=== PATIENT | female | born 1990 | race Caucasian/White ===

== ENCOUNTER 2017-03-01 18:52 | Emergency (ER) | payer OTHER ==
[2017-03-01] MEDS ORDERED: RX INFO: IV CONTRAST WAS GIVEN 1 EACH MISC MISCELLANE PRN (19:08)
[2017-03-01] MEDS ORDERED: SODIUM CHLORIDE 0.9% 1,000 ML IV STA (19:08)
[2017-03-01] MEDS ORDERED: KETOROLAC 30 MG/ML 1 ML VIAL IVP STA (19:08)
--- NOTE | 2017-03-01 19:11 | ED ---
General Adult HPI - General Chief complaint: Abdominal Pain Stated complaint: abdominal pain; left flank pain Time Seen by Provider: 03/01/17 19:04 Source: patient, RN notes reviewed Mode of arrival: ambulatory Limitations: no limitations - History of Present Illness Initial comments: 26-year-old female presents emergency Department chief complaint of left-sided abdominal pain. Patient states started today. Patient states originally abdomen left side. Patient states it started suddenly she continues have some pain with it. Patient states she's had 2 episodes of nausea vomiting with this. Patient states she hasn't had any fever chills that she is aware of. Patient states she hasn't had any cough cold Raynaud's. Patient states she does have history of ovarian cyst however she is not that is what this is. Patient denies any changes in urination patient denies any diarrhea. Patient states that she is not feeling much better even with some medication at home so she came in to be evaluated. Patient denies any recent fever, chills, shortness of breath, chest pain, back pain, numbness or tingling, dysuria or hematuria, constipation or diarrhea, headaches or visual changes, or any other current symptoms. - Related Data Home Medications Medication Instructions Recorded Confirmed Norgestimate-Ethinyl Estradiol 1 tab PO HS 12/19/15 03/01/17 [Sprintec 28 Day Tablet] Ibuprofen [Motrin] 400 mg PO Q6HR PRN 03/01/17 03/01/17 Vortioxetine Hydrobromide 20 mg PO HS 03/01/17 03/01/17 [Trintellix] Previous Rx's Medication Instructions Recorded Ibuprofen [Motrin] 600 mg PO Q6HR PRN #20 tab 03/01/17 Allergies Allergy/AdvReac Type Severity Reaction Status Date / Time codeine Allergy Nausea & Verified 03/01/17 19:12 Vomiting Review of Systems ROS Statement: Those systems with pertinent positive or pertinent negative responses have been documented in the HPI. ROS Other: All systems not noted in ROS Statement are negative. Past Medical History Past Medical History: No Reported History History of Any Multi-Drug Resistant Organisms: MRSA Date of last positivie culture/infection: 12/19/15 MDRO Source:: right arm Past Surgical History: Cholecystectomy Past Psychological History: Bipolar Smoking Status: Current every day smoker Past Alcohol Use History: None Reported Past Drug Use History: None Reported General Exam - General Exam Comments Initial Comments: General: The patient is awake and alert, in no distress, and does not appear acutely ill. Eye: Pupils are equal, round and reactive to light, extra-ocular movements are intact; there is normal conjunctiva bilaterally. No signs of icterus. Ears, nose, mouth and throat: There are moist mucous membranes. Neck: The neck is supple, there is no tenderness. Cardiovascular: There is a regular rate and rhythm. No murmur, rub or gallop is appreciated. Respiratory: Lungs are clear to auscultation, respirations are non-labored, breath sounds are equal. No wheezes, stridor, rales, or rhonchi. Gastrointestinal: Soft, non-distended, left-sided mildly tender abdomen without masses or organomegaly noted. There is no rebound or guarding present. No CVA tenderness. Bowel sounds are unremarkable. Back: There is no tenderness to palpation in the midline. There is no obvious deformity. No rashes noted. Musculoskeletal: Normal ROM, no tenderness, There is no pedal edema. There is no calf tenderness or swelling. Sensation intact. Pulses equal bilaterally 2+. Neurological: CN II-XII intact, There are no obvious motor or sensory deficits. Coordination appears grossly intact. Speech is normal. Skin: Skin is warm and dry and no rashes or lesions are noted. Psychiatric: Cooperative, appropriate mood & affect, normal judgment. Limitations: no limitations Course Vital Signs 03/01/17 03/01/17 03/01/17 18:55 19:33 20:55 Temperature 98.4 F 98.3 F 98.4 F Pulse Rate 106 H 65 90 Respiratory 18 16 16 Rate Blood Pressure 119/87 116/60 116/69 O2 Sat by Pulse 99 97 98 Oximetry 03/01/17 22:05 Temperature 98.3 F Pulse Rate 66 Respiratory 16 Rate Blood Pressure 109/55 O2 Sat by Pulse 98 Oximetry Medical Decision Making - Medical Decision Making 26-year-old female presents for left-sided abdominal pain. At this time patient 's lab work x-ray and CAT scan have been reviewed as well as ultrasound. This time patient does appear to have an ovarian cyst. We did discuss or hepatomegaly and this does appear to be chronic from her hepatitis C. At this time we discussed that she has had ovarian cyst. We discussed care of this. We discussed follow-up with discussed return parameters all patient's questions. They state [facility] management with this plan. They will be discharged. - Lab Data Result diagrams: 03/01/17 19:30 03/01/17 19:30 Lab Results 03/01/17 03/01/17 03/01/17 Range/Units 19:30 19:30 19:30 WBC 9.4 (3.8-10.6) k/uL RBC 4.34 (3.80-5.40) m/uL Hgb 13.9 (11.4-16.0) gm/dL Hct 37.8 (34.0-46.0) % MCV 87.0 (80.0-100.0) fL MCH 31.9 (25.0-35.0) pg MCHC 36.7 (31.0-37.0) g/dL RDW 12.2 (11.5-15.5) % Plt Count 299 (150-450) k/uL Neutrophils % 54 % Lymphocytes % 38 % Monocytes % 4 % Eosinophils % 2 % Basophils % 0 % Neutrophils # 5.1 (1.3-7.7) k/uL Lymphocytes # 3.6 (1.0-4.8) k/uL Monocytes # 0.4 (0-1.0) k/uL Eosinophils # 0.1 (0-0.7) k/uL Basophils # 0.0 (0-0.2) k/uL Sodium 141 (137-145) mmol/L Potassium 3.9 (3.5-5.1) mmol/L Chloride 106 (98-107) mmol/L Carbon Dioxide 23 (22-30) mmol/L Anion Gap 12 mmol/L BUN 8 (7-17) mg/dL Creatinine 0.61 (0.52-1.04) mg/dL Est GFR (MDRD) Af Amer >60 (>60 ml/min/1.73 sqM) Est GFR (MDRD) Non-Af >60 (>60 ml/min/1.73 sqM) Glucose 105 H (74-99) mg/dL Calcium 9.4 (8.4-10.2) mg/dL Total Bilirubin 0.3 (0.2-1.3) mg/dL AST 34 (14-36) U/L ALT 82 H (9-52) U/L Alkaline Phosphatase 78 (38-126) U/L Total Protein 7.3 (6.3-8.2) g/dL Albumin 3.9 (3.5-5.0) g/dL Amylase 70 (30-110) U/L Lipase 257 (23-300) U/L Urine Color Urine Appearance (Clear) Urine pH (5.0-8.0) Ur Specific Franklin (1.001-1.035) Urine Protein (Negative) Urine Glucose (UA) (Negative) Urine Ketones (Negative) Urine Blood (Negative) Urine Nitrite (Negative) Urine Bilirubin (Negative) Urine Urobilinogen (<2.0) mg/dL Ur Leukocyte Esterase (Negative) Urine HCG, Qual Not Detected (Not Detectd) 03/01/17 Range/Units 19:30 WBC (3.8-10.6) k/uL RBC (3.80-5.40) m/uL Hgb (11.4-16.0) gm/dL Hct (34.0-46.0) % MCV (80.0-100.0) fL MCH (25.0-35.0) pg MCHC (31.0-37.0) g/dL RDW (11.5-15.5) % Plt Count (150-450) k/uL Neutrophils % % Lymphocytes % % Monocytes % % Eosinophils % % Basophils % % Neutrophils # (1.3-7.7) k/uL Lymphocytes # (1.0-4.8) k/uL Monocytes # (0-1.0) k/uL Eosinophils # (0-0.7) k/uL Basophils # (0-0.2) k/uL Sodium (137-145) mmol/L Potassium (3.5-5.1) mmol/L Chloride (98-107) mmol/L Carbon Dioxide (22-30) mmol/L Anion Gap mmol/L BUN (7-17) mg/dL Creatinine (0.52-1.04) mg/dL Est GFR (MDRD) Af Amer (>60 ml/min/1.73 sqM) Est GFR (MDRD) Non-Af (>60 ml/min/1.73 sqM) Glucose (74-99) mg/dL Calcium (8.4-10.2) mg/dL Total Bilirubin (0.2-1.3) mg/dL AST (14-36) U/L ALT (9-52) U/L Alkaline Phosphatase (38-126) U/L Total Protein (6.3-8.2) g/dL Albumin (3.5-5.0) g/dL Amylase (30-110) U/L Lipase (23-300) U/L Urine Color Yellow Urine Appearance Clear (Clear) Urine pH 6.0 (5.0-8.0) Ur Specific Franklin 1.018 (1.001-1.035) Urine Protein Negative (Negative) Urine Glucose (UA) Negative (Negative) Urine Ketones Negative (Negative) Urine Blood Negative (Negative) Urine Nitrite Negative (Negative) Urine Bilirubin Negative (Negative) Urine Urobilinogen <2.0 (<2.0) mg/dL Ur Leukocyte Esterase Negative (Negative) Urine HCG, Qual (Not Detectd) - Radiology Data Radiology results: report reviewed, image reviewed Disposition Clinical Impression: Right ovarian cyst Disposition: HOME SELF-CARE Condition: Stable Instructions: Ovarian Cyst (ED) Additional Instructions: Please use medication as discussed. Please follow up with family doctor if symptoms have not improved over the next two days. Please return to the emergency room if your symptoms increase or worsen or for any other concerns. Prescriptions: Ibuprofen [Motrin] 600 mg PO Q6HR PRN #20 tab PRN Reason: Pain Referrals: Becky Gonzalez MD [STAFF PHYSICIAN] - 1-2 days Time of Disposition: 22:37
[2017-03-01 19:46] LABS: Basophils % (A) 0 %; CH 30.8; CHCM 35.6; Eosinophils # (A) 0.1 k/uL (0-0.7); Eosinophils % (A) 2 %; HCT 37.8 % (34.0-46.0); HDW 2.76; HGB 13.9 gm/dL (11.4-16.0); Luc # (Auto) 0.18; Luc % (Auto) 2; Lymphocytes # (A) 3.6 k/uL (1.0-4.8); Lymphocytes % (A) 38 %; MCH 31.9 pg (25.0-35.0); MCHC 36.7 g/dL (31.0-37.0); Mean Platelet Volume 6.6; Monocytes # (A) 0.4 k/uL (0-1.0); Monocytes % (A) 4 %; Neutrophils # (A) 5.1 k/uL (1.3-7.7); Neutrophils % (A) 54 %; RBC 4.34 m/uL (3.80-5.40); RDW 12.2 % (11.5-15.5); WBC 9.4 k/uL (3.8-10.6); WBC (Perox) 9.39
[2017-03-01 19:47] LABS: Appearance,Urine Clear (Clear); Bilirubin,Urine Negative (Negative); Glucose,Urine (UA) Negative (Negative); Ketones,Urine Negative (Negative); Leukocyte Esterase,Urine Negative (Negative); Nitrite,Urine Negative (Negative); Protein,Urine Negative (Negative); Specific Gravity,Urine 1.018 (1.001-1.035); UA Billing (MACRO vs. MICRO) CHEM; Urobilinogen,Urine <2.0 mg/dL (<2.0)
[2017-03-01 20:21] LABS: ALT 82 U/L (9-52); AST 34 U/L (14-36); Alkaline Phosphatase 78 U/L (38-126); Amylase 70 U/L (30-110); Anion Gap 12 mmol/L; Blood Urea Nitrogen 8 mg/dL (7-17); Calcium 9.4 mg/dL (8.4-10.2); Carbon Dioxide 23 mmol/L (22-30); Chloride 106 mmol/L (98-107); Glucose 105 mg/dL (74-99); Non-African American GFR(MDRD) >60 (>60 ml/min/1.73 sqM); Potassium 3.9 mmol/L (3.5-5.1); Sodium 141 mmol/L (137-145); Total Bilirubin 0.3 mg/dL (0.2-1.3); Total Protein 7.3 g/dL (6.3-8.2)
--- NOTE | 2017-03-01 20:44 | CT ---
EXAMINATION TYPE: CT abdomen pelvis w con DATE OF EXAM: 03/01/2017 COMPARISON: 10/26/2009 HISTORY: 26-year-old female with left lower quadrant pain with nausea and vomiting today. TECHNIQUE: Contiguous axial scanning of the abdomen and pelvis following administration of 100 ml Omn ipaque 300 IV contrast. Delayed images through the kidneys and coronal/sagittal reconstructions perf ormed. CT DLP: 1227.20 mGycm Automated exposure control for dose reduction was used. FINDINGS: Heart is normal size without pericardial effusion. Lung bases clear without pleural effusion. Liver is enlarged measuring 21.9 cm craniocaudal with diffuse diminished attenuation. Portal venous s ystem is patent. No biliary ductal dilatation. Cholecystectomy clips. Adrenal glands, kidneys, spleen, and pancreas show no gross abnormality. Scattered numerous nonenlarged mesenteric lymph nodes. A couple mildly enlarged mesenteric lymph node s are present measuring up to 7 mm, coronal image 39. No dilated small bowel, free fluid, or free air. Normal appendix. Mild overall stool burden. No pericolonic inflammatory change. Bladder is partially distended. Uterus and ovaries are visualized. Small amount of cul-de-sac free fl uid likely physiologic. No pelvic lymphadenopathy seen. Bones: Mild superior femoral head neck junction osseous excrescences with a femoral head neck junctio n microcystic change. Osseous destructive process. IMPRESSION: 1. HEPATOMEGALY (22 CM) WITH MARKED HEPATIC STEATOSIS. CORRELATE WITH LFT's, LIPID PROFILE, AND PATIE NT RISK FACTORS. 2. SCATTERED NONENLARGED AND A FEW MILDLY ENLARGED MESENTERIC LYMPH NODES. FINDINGS ARE PROBABLY POST INFLAMMATORY. 3. MILD PELVIC FREE FLUID LIKELY PHYSIOLOGIC. 4. SOME BONY CHANGES AT THE HIPS DESCRIBED ABOVE MAY BE SEEN IN SETTING OF FEMORAL ACETABULAR IMPINGE MENT SYNDROME. CORRELATE FOR ANY CHRONIC HIP PAIN. OUTPATIENT ORTHOPEDIC REFERRAL CLINICALLY INDIC ATED.
--- NOTE | 2017-03-01 22:26 | US ---
EXAMINATION TYPE: US transvaginal plus Dopplers DATE OF EXAM: 03/01/2017 COMPARISON: CT same day CLINICAL HISTORY: 26-year-old female with Pain. LLQ pain- comes periodically TECHNIQUE: Transvaginal (TV). Color Doppler and spectral waveform analysis of the ovarian arteries a nd veins. Date of LMP: 02/15/2017, FINDINGS: Uterus: Anteverted measuring 8.3 x 5.2 x 4.3 cm Endometrial Stripe: 0.3 cm Right Ovary: 3.0 x 1.5 x 1.6 cm for a volume of 3.4 mL. There is a 1.2 cm small crenulated cystic st ructure within it could represent a recently ruptured follicle. Satisfactory arterial and venous flow . Left Ovary: 2.9 x 1.9 x 1.6 cm for a volume of 4.7 mL. Follicular changes present. Satisfactory mike rial and venous flow is present. Mild to moderate cul-de-sac and trace left adnexal free fluid. IMPRESSION: 1. Follicular change in both ovaries. There is a 1.2 cm crenulated cyst in the right ovary probably r epresenting a recently ruptured follicle or corpus luteum. 2. No sonographic evidence for ovarian torsion. 3. Mild to moderate cul-de-sac and trace left adnexal free fluid likely physiologic.
[2017-03-01] MEDS ORDERED: HYDROcodone/APAP 5-325MG 1 EACH TAB PO STA (22:36)
[2017-03-01 22:47] VITALS: BP 106/62; PULSE 68; RESP 14; TEMP 98.2
== END 2017-03-01 22:52 | disposition home or self-care (01) ==
LOC: EC 18:52
DX: N83.201 Unspecified ovarian cyst, right side (principal); R11.2 Nausea with vomiting, unspecified; F31.9 Bipolar disorder, unspecified; F17.200 Nicotine dependence, unspecified, uncomplicated; Z90.49 Acquired absence of other specified parts of digestive tract; Z88.5 Allergy status to narcotic agent; Z79.3 Long term (current) use of hormonal contraceptives; Z79.899 Other long term (current) drug therapy
CPT/HCPCS: 99284; 96374; 96361; 36415; 80053; 82150; 83690; 85025; 81003; 81025; 87040; 87086; 93975; 76830; 74177; J1885; Q9967

== ENCOUNTER → 2017-08-28 | Outpatient (CLI) | payer OTHER ==
--- NOTE | 2017-08-28 20:34 | MR ---
EXAMINATION TYPE: MR brain wo/w con DATE OF EXAM: 08/28/2017 COMPARISON: NONE HISTORY: Paresthesia of skin / Visual disturbance per order. Left-sided numbness, possible mini strok es per patient TECHNIQUE: Multiplanar, multisequence images of the brain and brainstem is performed without and with IV contras t, utilizing 9 mL intravenous Gadavist . FINDINGS: Diffusion weighted images demonstrate no evidence of a recent infarct or other diffusion ab normality. There is no extra-axial fluid collection or significant white matter signal abnormality. The ventricular system and cisternal spaces are normal in size and appearance. The brain volume is age appropriate. Midline structures demonstrate normal morphology. The craniocervical junction appears within normal limits. Post contrast images demonstrate no abnormal enhancement. The dural venous sinuses appear pa tent. The visualized sinuses are clear and the globes are intact. IMPRESSION: No evidence of a recent infarct. No significant finding is seen to account for patient's symptoms.
== END | disposition home or self-care (01) ==
LOC: RADMRIMAIN 19:36
PROVIDERS: ATTEND Family Medicine
DX: R20.0 Anesthesia of skin (principal)
CPT/HCPCS: 70553; A9581

== ENCOUNTER → 2018-02-25 | Outpatient (CLI) | payer OTHER ==
--- NOTE | 2018-02-25 12:34 | FL ---
EXAMINATION: Cervical and Thoracic Esophagram DATE OF EXAM: 02/25/2018 CLINICAL INDICATION: 27-year-old female with dysphasia, complaining of food and drink sticking in the lower esophagus for 1 month. Complains of acid reflux. COMPARISON: None Total Fluoroscopy Time: 50 seconds. Total images: 19. FINDINGS: The swallowing mechanism is normal and hypopharyngeal anatomy is preserved. The cervical and thoracic portions have a normal course and caliber and normal motility. The mucosa is normal and no persistent filling defect is encountered. No hiatal hernia is present. There is a single episode of very minimal gastroesophageal reflux when the patient is supine and turns to the left. IMPRESSION: 1. A single episode of very minimal gastroesophageal reflux when the patient is supine and turns to t he left. 2. No hiatal hernia or other specific abnormality seen.
== END | disposition home or self-care (01) ==
LOC: RADFLWHC 08:36
PROVIDERS: ATTEND Family Medicine
DX: K21.9 Gastro-esophageal reflux disease without esophagitis (principal)
CPT/HCPCS: 74220

== ENCOUNTER 2018-03-20 22:25 | Emergency (ER) | payer BC, OTHER ==
[2018-03-20 22:40] VITALS: BP 116/78; PULSE 86; RESP 18; TEMP 98.5
--- NOTE | 2018-03-20 23:03 | ED ---
General Adult HPI - General Chief complaint: Fall Stated complaint: Fell downstairs 5-7 feet/ knee injury Time Seen by Provider: 03/20/18 22:55 Source: patient, RN notes reviewed, old records reviewed Mode of arrival: wheelchair Limitations: no limitations - History of Present Illness Initial comments: Patient is a 27 year old female with L knee pain and swelling after she tripped and twisted her leg while falling down 5 stairs. Patient denies head injury or LOC. She denies any other injury associated with the fall. She reports that he has pain in the posterior aspect of her knee. She reports that she has placed ice and het on her knee with no relief Location: lower extremity (L knee) Radiation: non-radiation Quality: aching, dull Consistency: constant Improves with: none Associated Symptoms: denies other symptoms Treatments Prior to Arrival: cold therapy - Related Data Home Medications Medication Instructions Recorded Confirmed Norgestimate-Ethinyl Estradiol 1 tab PO HS 12/19/15 03/01/17 [Sprintec 28 Day Tablet] Ibuprofen [Motrin] 400 mg PO Q6HR PRN 03/01/17 03/01/17 Vortioxetine Hydrobromide 20 mg PO HS 03/01/17 03/01/17 [Trintellix] Previous Rx's Medication Instructions Recorded Ibuprofen [Motrin] 600 mg PO Q6HR PRN #20 tab 03/01/17 Ibuprofen [Motrin] 800 mg PO TID #20 tab 03/20/18 Allergies Allergy/AdvReac Type Severity Reaction Status Date / Time codeine Allergy Nausea & Verified 03/20/18 22:39 Vomiting Review of Systems ROS Statement: Those systems with pertinent positive or pertinent negative responses have been documented in the HPI. ROS Other: All systems not noted in ROS Statement are negative. Past Medical History Past Medical History: No Reported History History of Any Multi-Drug Resistant Organisms: MRSA Date of last positivie culture/infection: 12/19/15 MDRO Source:: right arm Past Surgical History: Cholecystectomy Past Psychological History: Bipolar Smoking Status: Current every day smoker Past Alcohol Use History: None Reported Past Drug Use History: None Reported General Exam - General Exam Comments Initial Comments: This is a well appearing 27 year old male, no distress. Limitations: no limitations General appearance: alert, in no apparent distress Head exam: Present: atraumatic, normocephalic, normal inspection Eye exam: Present: normal appearance, PERRL, EOMI. Absent: scleral icterus, conjunctival injection, periorbital swelling ENT exam: Present: normal exam Neck exam: Present: normal inspection. Absent: tenderness, meningismus, lymphadenopathy Respiratory exam: Present: normal lung sounds bilaterally. Absent: respiratory distress, wheezes, rales, rhonchi, stridor Cardiovascular Exam: Present: regular rate, normal rhythm, normal heart sounds. Absent: systolic murmur, diastolic murmur, rubs, gallop, clicks Left Knee exam: Present: normal inspection, tenderness (over LCL and posterior knee. ), swelling, pain/laxity with varus. Absent: full ROM, abrasion, laceration, full knee extension Lower Leg exam: Present: normal inspection, full ROM Ankle exam: Present: normal inspection, full ROM Neurovascular tendon exam: Present: no vascular compromise Gait: observed and limited by pain Back exam: Present: normal inspection Neurological exam: Present: alert, oriented X3, CN II-XII intact Course Vital Signs 03/20/18 22:37 Temperature 98.5 F Pulse Rate 86 Respiratory 18 Rate Blood Pressure 116/78 O2 Sat by Pulse 99 Oximetry Procedures - Orthopedic Splinting/Casting Injury #1 Side: left Lower Extremity Injury Location: knee Lower Extremity Immobilizer: knee immobilizer Other Orthopedic Equipment: crutches Medical Decision Making - Medical Decision Making This is a 27 year old female with L knee pain after she twisted her knee and fell down the stairs. She has normal pulses distally, and normal sensation. Effusion noted, and tender over LCL. Patient knee xray is negative for fracture. Patient likely has torn LCL and other internal derangement of ligaments and meniscus. Patient given referral to ortho, placed in knee immobilizer. Return parameters discussed. - Radiology Data Radiology results: report reviewed Knormal L knee xray, no fracture. Disposition Clinical Impression: Left knee sprain Disposition: HOME SELF-CARE Condition: Good Instructions: Knee Sprain (ED) Additional Instructions: Patient is to follow up with primary care provider and Follow-up with asset recovery specialist. Wear the brace. Return to the emergency department if any alarming signs or symptoms occur. Prescriptions: Ibuprofen [Motrin] 800 mg PO TID #20 tab Is patient prescribed a controlled substance at d/c from ED?: No Referrals: Yash Mullen MD [Primary Care Provider] - 1-2 days Júnior Moe MD [STAFF PHYSICIAN] - 1-2 days Time of Disposition: 23:34
--- NOTE | 2018-03-20 23:20 | XR ---
EXAMINATION TYPE: XR knee complete LT DATE OF EXAM: 03/20/2018 COMPARISON: NONE HISTORY: Knee pain TECHNIQUE: 3 views FINDINGS: I see no fracture nor dislocation. Joint spaces are normal. There is no sign of joint effus ion. IMPRESSION: Negative left knee exam
== END 2018-03-20 23:49 | disposition home or self-care (01) ==
LOC: EC 22:25
DX: S83.92XA Sprain of unspecified site of left knee, initial encounter (principal); F31.9 Bipolar disorder, unspecified; F17.200 Nicotine dependence, unspecified, uncomplicated; Z88.5 Allergy status to narcotic agent; Z79.3 Long term (current) use of hormonal contraceptives; Z86.14 Personal history of Methicillin resistant Staphylococcus aureus infection; W10.9XXA Fall (on) (from) unspecified stairs and steps, initial encounter; Y93.89 Activity, other specified; Y92.009 Unspecified place in unspecified non-institutional (private) residence as the place of occurrence of the external cause
CPT/HCPCS: 73562; 99284; L1830

== ENCOUNTER 2018-04-30 08:33 | Emergency (ER) | payer BC ==
[2018-04-30 08:41] VITALS: PULSE 68; RESP 18; TEMP 98.6
[2018-04-30] MEDS ORDERED: SODIUM CHLORIDE 0.9% 1,000 ML IV STA (08:51)
[2018-04-30] MEDS ORDERED: KETOROLAC 30 MG/ML 1 ML VIAL IVP STA (08:51)
--- NOTE | 2018-04-30 08:58 | ED ---
General Adult HPI - General Chief complaint: Abdominal Pain Stated complaint: Abd pain Time Seen by Provider: 04/30/18 08:37 Source: patient, EMS, RN notes reviewed, old records reviewed Mode of arrival: EMS Limitations: no limitations - History of Present Illness Initial comments: 27-year-old female presents with three-day history of abdominal pain. Patient states the pain is predominantly in her right lower quadrant. Patient denies fever or chills. Denies dysuria. Denies vaginal discharge or bleeding. Patient denies significant upper abdominal pain. She has had 10 episodes of vomiting in the last 24 hours. This was nonbloody nonbilious. Patient is otherwise healthy with no chronic medical problems. - Related Data Home Medications Medication Instructions Recorded Confirmed Norgestimate-Ethinyl Estradiol 1 tab PO HS 12/19/15 04/30/18 [Sprintec 28 Day Tablet] Sertraline [Zoloft] 75 mg PO HS 04/30/18 04/30/18 Allergies Allergy/AdvReac Type Severity Reaction Status Date / Time codeine AdvReac Nausea & Verified 04/30/18 09:05 Vomiting Review of Systems ROS Statement: Those systems with pertinent positive or pertinent negative responses have been documented in the HPI. ROS Other: All systems not noted in ROS Statement are negative. Past Medical History Past Medical History: No Reported History History of Any Multi-Drug Resistant Organisms: MRSA Date of last positivie culture/infection: 12/19/15 MDRO Source:: right arm Past Surgical History: Cholecystectomy Past Psychological History: Bipolar, Depression Smoking Status: Current every day smoker Past Alcohol Use History: None Reported Past Drug Use History: None Reported General Exam Limitations: no limitations General appearance: alert, in no apparent distress Head exam: Present: atraumatic, normocephalic Eye exam: Present: normal appearance, PERRL ENT exam: Present: mucous membranes dry Neck exam: Present: normal inspection. Absent: tenderness, meningismus Respiratory exam: Present: normal lung sounds bilaterally. Absent: respiratory distress, wheezes Cardiovascular Exam: Present: regular rate, normal rhythm GI/Abdominal exam: Present: soft, tenderness (Right lower quadrant tenderness to palpation). Absent: distended Extremities exam: Present: normal inspection, normal capillary refill. Absent: pedal edema Neurological exam: Present: alert, oriented X3, CN II-XII intact. Absent: motor sensory deficit Psychiatric exam: Present: normal affect, normal mood Skin exam: Present: warm, dry, intact. Absent: cyanosis, diaphoretic Course Vital Signs 04/30/18 08:37 Temperature 98.6 F Pulse Rate 68 Respiratory 18 Rate Blood Pressure 125/72 O2 Sat by Pulse 100 Oximetry Medical Decision Making - Medical Decision Making 27-year-old female with nausea vomiting and right lower quadrant pain. On exam there is tenderness in the right lower quadrant. Given her duration of symptoms there is concern for appendicitis, CT is obtained which is negative for appendicitis, does show cystic change in the ovaries. Symptoms likely related to ruptured ovarian cyst. Patient has normal CBC and CMP, urinalysis is negative. After 1 dose of Toradol she is feeling better. She will be discharged home with outpatient follow-up. Return with worsening or changing symptoms. - Lab Data Result diagrams: 04/30/18 08:45 04/30/18 08:45 Lab Results 04/30/18 04/30/18 04/30/18 Range/Units 08:45 08:45 08:45 WBC 11.1 H (3.8-10.6) k/uL RBC 4.63 (3.80-5.40) m/uL Hgb 13.7 (11.4-16.0) gm/dL Hct 39.5 (34.0-46.0) % MCV 85.2 (80.0-100.0) fL MCH 29.7 (25.0-35.0) pg MCHC 34.8 (31.0-37.0) g/dL RDW 12.4 (11.5-15.5) % Plt Count 237 (150-450) k/uL Neutrophils % 77 % Lymphocytes % 16 % Monocytes % 4 % Eosinophils % 2 % Basophils % 0 % Neutrophils # 8.6 H (1.3-7.7) k/uL Lymphocytes # 1.7 (1.0-4.8) k/uL Monocytes # 0.4 (0-1.0) k/uL Eosinophils # 0.2 (0-0.7) k/uL Basophils # 0.1 (0-0.2) k/uL PT (9.0-12.0) sec INR (<1.2) APTT (22.0-30.0) sec Sodium 138 (137-145) mmol/L Potassium 4.5 (3.5-5.1) mmol/L Chloride 111 H (98-107) mmol/L Carbon Dioxide 20 L (22-30) mmol/L Anion Gap 7 mmol/L BUN 5 L (7-17) mg/dL Creatinine 0.46 L (0.52-1.04) mg/dL Est GFR (CKD-EPI)AfAm >90 (>60 ml/min/1.73 sqM) Est GFR (CKD-EPI)NonAf >90 (>60 ml/min/1.73 sqM) Glucose 106 H (74-99) mg/dL Plasma Lactic Acid Rodolfo 1.5 (0.7-2.0) mmol/L Calcium 8.9 (8.4-10.2) mg/dL Total Bilirubin 0.7 (0.2-1.3) mg/dL AST 41 H (14-36) U/L ALT 37 (9-52) U/L Alkaline Phosphatase 73 (38-126) U/L Total Protein 7.2 (6.3-8.2) g/dL Albumin 3.7 (3.5-5.0) g/dL Amylase 59 (30-110) U/L Lipase 125 (23-300) U/L Urine Color Urine Appearance (Clear) Urine pH (5.0-8.0) Ur Specific [place] (1.001-1.035) Urine Protein (Negative) Urine Glucose (UA) (Negative) Urine Ketones (Negative) Urine Blood (Negative) Urine Nitrite (Negative) Urine Bilirubin (Negative) Urine Urobilinogen (<2.0) mg/dL Ur Leukocyte Esterase (Negative) Urine RBC (0-5) /hpf Urine WBC (0-5) /hpf Ur Squamous Epith Cells (0-4) /hpf Urine Mucus (None) /hpf Urine HCG, Qual (Not Detectd) 04/30/18 04/30/18 04/30/18 Range/Units 08:45 09:25 09:25 WBC (3.8-10.6) k/uL RBC (3.80-5.40) m/uL Hgb (11.4-16.0) gm/dL Hct (34.0-46.0) % MCV (80.0-100.0) fL MCH (25.0-35.0) pg MCHC (31.0-37.0) g/dL RDW (11.5-15.5) % Plt Count (150-450) k/uL Neutrophils % % Lymphocytes % % Monocytes % % Eosinophils % % Basophils % % Neutrophils # (1.3-7.7) k/uL Lymphocytes # (1.0-4.8) k/uL Monocytes # (0-1.0) k/uL Eosinophils # (0-0.7) k/uL Basophils # (0-0.2) k/uL PT 9.3 (9.0-12.0) sec INR 0.9 (<1.2) APTT 22.1 (22.0-30.0) sec Sodium (137-145) mmol/L Potassium (3.5-5.1) mmol/L Chloride (98-107) mmol/L Carbon Dioxide (22-30) mmol/L Anion Gap mmol/L BUN (7-17) mg/dL Creatinine (0.52-1.04) mg/dL Est GFR (CKD-EPI)AfAm (>60 ml/min/1.73 sqM) Est GFR (CKD-EPI)NonAf (>60 ml/min/1.73 sqM) Glucose (74-99) mg/dL Plasma Lactic Acid Rod[place]fo (0.7-2.0) mmol/L Calcium (8.4-10.2) mg/dL Total Bilirubin (0.2-1.3) mg/dL AST (14-36) U/L ALT (9-52) U/L Alkaline Phosphatase (38-126) U/L Total Protein (6.3-8.2) g/dL Albumin (3.5-5.0) g/dL Amylase (30-110) U/L Lipase (23-300) U/L Urine Color Yellow Urine Appearance Cloudy H (Clear) Urine pH 7.5 (5.0-8.0) Ur Specific [place] 1.011 (1.001-1.035) Urine Protein Negative (Negative) Urine Glucose (UA) Negative (Negative) Urine Ketones Negative (Negative) Urine Blood Negative (Negative) Urine Nitrite Negative (Negative) Urine Bilirubin Negative (Negative) Urine Urobilinogen 3.0 (<2.0) mg/dL Ur Leukocyte Esterase Negative (Negative) Urine RBC 1 (0-5) /hpf Urine WBC 2 (0-5) /hpf Ur Squamous Epith Cells 13 H (0-4) /hpf Urine Mucus Rare H (None) /hpf Urine HCG, Qual Not Detected (Not Detectd) Disposition Clinical Impression: Abdominal pain, Ruptured ovarian cyst Disposition: HOME SELF-CARE Condition: Good Instructions: Abdominal Pain (ED) Is patient prescribed a controlled substance at d/c from ED?: No Referrals: Yash Mullen MD [Primary Care Provider] - 1-2 days Time of Disposition: 11:16
[2018-04-30 09:22] LABS: Basophils # (A) 0.1 k/uL (0-0.2); Basophils % (A) 0 %; Eosinophils # (A) 0.2 k/uL (0-0.7); Eosinophils % (A) 2 %; HCT 39.5 % (34.0-46.0); HGB 13.7 gm/dL (11.4-16.0); Lymphocytes # (A) 1.7 k/uL (1.0-4.8); Lymphocytes % (A) 16 %; MCH 29.7 pg (25.0-35.0); MCHC 34.8 g/dL (31.0-37.0); MCV 85.2 fL (80.0-100.0); Mean Platelet Volume 6.9; Monocytes # (A) 0.4 k/uL (0-1.0); Monocytes % (A) 4 %; Neutrophils # (A) 8.6 k/uL (1.3-7.7); Neutrophils % (A) 77 %; Platelet Count 237 k/uL (150-450); RBC 4.63 m/uL (3.80-5.40); RDW 12.4 % (11.5-15.5); WBC 11.1 k/uL (3.8-10.6)
[2018-04-30 09:32] LABS: Amylase 59 U/L (30-110); Anion Gap 7 mmol/L; Blood Urea Nitrogen 5 mg/dL (7-17); Calcium 8.9 mg/dL (8.4-10.2); Carbon Dioxide 20 mmol/L (22-30); Chloride 111 mmol/L (98-107); Glucose 106 mg/dL (74-99); INR 0.9 (<1.2); Lipase 125 U/L (23-300); Partial Thromboplastin Time 22.1 sec (22.0-30.0); Prothrombin Time 9.3 sec (9.0-12.0); Sodium 138 mmol/L (137-145); Total Bilirubin 0.7 mg/dL (0.2-1.3)
[2018-04-30 09:35] LABS: ALT 37 U/L (9-52); AST 41 U/L (14-36); Albumin 3.7 g/dL (3.5-5.0); Alkaline Phosphatase 73 U/L (38-126); Potassium 4.5 mmol/L (3.5-5.1); Total Protein 7.2 g/dL (6.3-8.2)
[2018-04-30 09:39] LABS: Appearance,Urine Cloudy (Clear); Bilirubin,Urine Negative (Negative); Blood,Urine Negative (Negative); Color,Urine Yellow; Glucose,Urine (UA) Negative (Negative); Ketones,Urine Negative (Negative); Leukocyte Esterase,Urine Negative (Negative); Mucus,Urine Rare /hpf; Nitrite,Urine Negative (Negative); PH, Urine 7.5 (5.0-8.0); Protein,Urine Negative (Negative); RBC,Urine 1 /hpf (0-5); Specific Gravity,Urine 1.011 (1.001-1.035); Squamous Epithelial Cell,Urine 13 /hpf (0-4); WBC,Urine 2 /hpf (0-5)
--- NOTE | 2018-04-30 10:43 | CT ---
EXAMINATION TYPE: CT abdomen pelvis w con DATE OF EXAM: 04/30/2018 HISTORY: RLQ pain CT DLP: 970.7mGycm Automated Exposure Control for Dose Reduction was Utilized. CONTRAST: CT scan of the abdomen and pelvis is performed with IV Contrast, patient injected with 100 mL of Isov ue 300. COMPARISON: None. FINDINGS: LUNG BASES: Minimal subsegmental dependent atelectasis is seen bilaterally. LIVER/GB: Hepatic parenchyma is diffusely hypoattenuated in comparison to that of the spleen, most co mmonly seen in hepatic steatosis. This finding limits evaluation for hepatic masses. No gross evidenc e of hepatic mass is seen. No intrahepatic biliary ductal dilatation. Gallbladder surgically absent. PANCREAS: No significant abnormality is seen. SPLEEN: No significant abnormality is seen. No splenomegaly. ADRENALS: No significant abnormality is seen. KIDNEYS: No significant abnormality is seen. BOWEL: No appendix is air-filled and within normal limits of size, retrocecal in location. No large or small bowel dilatation to suggest obstruction. Terminal ileum is decompressed but overall unremark able with no surrounding inflammatory change. UTERUS/ADNEXA: Follicular and/or cystic changes are noted of the ovaries. Uterus is grossly unremarka ble LYMPH NODES: No greater than 1cm abdominal or pelvic lymph nodes are appreciated. OSSEOUS STRUCTURES: Asymmetric, right greater than left, sacroiliac joint sclerosis is seen. Osseous protuberance at the femoral head neck junctions are again seen. OTHER: Approximately 2 mm fat filled periumbilical hernia seen. IMPRESSION: 1. No CT findings of acute appendicitis or bowel obstruction. 2. Follicular and/or cystic changes of the ovaries. 3. Hepatic steatosis as seen on the prior.
[2018-04-30 11:18] VITALS: BP 112/62
== END 2018-04-30 11:41 | disposition home or self-care (01) ==
LOC: EC 08:33
DX: N83.209 Unspecified ovarian cyst, unspecified side (principal); R10.31 Right lower quadrant pain; R11.2 Nausea with vomiting, unspecified; F31.9 Bipolar disorder, unspecified; F17.200 Nicotine dependence, unspecified, uncomplicated; Z88.5 Allergy status to narcotic agent; Z79.3 Long term (current) use of hormonal contraceptives; Z79.899 Other long term (current) drug therapy; Z86.14 Personal history of Methicillin resistant Staphylococcus aureus infection; Z90.49 Acquired absence of other specified parts of digestive tract
CPT/HCPCS: 36415; 80053; 82150; 83605; 83690; 85025; 85610; 85730; 81001; 81025; 74177; 99285; 96374; 96361 ×2; J1885; Q9967

== ENCOUNTER → 2018-05-26 | Outpatient (CLI) | payer BC ==
[2018-05-27 04:58] LABS: Anion Gap 6.3 mmol/L (4.00-12.00); Calcium 8.9 mg/dL (8.7-10.3); Carbon Dioxide 25.7 mmol/L (21.6-31.8); Potassium 4.3 mmol/L (3.5-5.5)
[2018-05-28 14:36] LABS: Hepatits C Virus RNA DETECTED (Not detected); Hepatits C Virus RNA, Quant 392 IU/mL (<12); LOG HCV IU/mL 2.59 (<1.08)
== END ==
LOC: LABWHC1 17:12
PROVIDERS: ATTEND Internal Medicine Infectious Disease
DX: B17.10 Acute hepatitis C without hepatic coma (principal)
CPT/HCPCS: 36415; 80048; 87522

== ENCOUNTER → 2018-07-28 | Outpatient (CLI) | payer BC ==
[2018-07-28 11:16] LABS: Basophils % (A) 1 %; Eosinophils # (A) 0.1 k/uL (0-0.7); Eosinophils % (A) 2 %; HCT 41.5 % (34.0-46.0); HGB 14.7 gm/dL (11.4-16.0); Lymphocytes # (A) 2.4 k/uL (1.0-4.8); Lymphocytes % (A) 30 %; MCH 31.7 pg (25.0-35.0); MCHC 35.3 g/dL (31.0-37.0); MCV 89.8 fL (80.0-100.0); Mean Platelet Volume 6.8; Monocytes # (A) 0.8 k/uL (0-1.0); Monocytes % (A) 10 %; Neutrophils # (A) 4.5 k/uL (1.3-7.7); Neutrophils % (A) 56 %; Platelet Count 256 k/uL (150-450); RBC 4.62 m/uL (3.80-5.40); RDW 12.9 % (11.5-15.5); WBC 7.9 k/uL (3.8-10.6)
== END | disposition home or self-care (01) ==
LOC: LABWHC1 09:32
PROVIDERS: ATTEND Obstetrics & Gynecology
DX: Z01.812 Encounter for preprocedural laboratory examination (principal)
CPT/HCPCS: 36415; 85025

== ENCOUNTER 2018-08-04 06:22 | Day surgery (SDC) | payer BC ==
[2018-07-31 14:00] VITALS: BMI 32.9
--- NOTE | 2018-08-03 16:34 | P.HPOB ---
History of Present Illness H&P Date: 08/03/18 Chief Complaint: Pelvic pain Yoli is a 27-year-old female who has a 12 year history of pelvic pain. Patient notes the pain is worse about a week before her period starts and improved slightly after her menses is done she's been told previously that she has ovarian cyst that her cousin pain but CAT scan done in April 2018 did not show this. Pain has been progressively worse over the last 2 years so much that she struggles to function when it is at its worst. She denies any GI symptoms nor does she have any urinary symptoms that would suggest IC. Most likely her diagnosis is control. She is already on Depo-Provera and this does not seem to be improving her pain. She is therefore scheduled for diagnostic laparoscopy with possible removal of or ablation of endometrial implants. We did discuss possibly refer her to pelvic pain specialist were doing a robotically however, she would like to have a diagnosis that she can have a more long-term treatment as needed depending on what we find. Risks/ benefits/alternatives to this procedure were discussed with the patient in detail and all questions were answered for her prior to proceeding to the operative room. Risks did include but were not limited to bleeding, infection, damage to bladder, damage to bowel, tubal injuries, ovarian injuries, and ureteral injuries. All questions were answered for her prior to proceeding to the operative room. Past Medical History Past Medical History: Liver Disease Additional Past Medical History / Comment(s): HEP C, HAVING ABDOMINAL AND PELVIC PAIN History of Any Multi-Drug Resistant Organisms: MRSA Date of last positivie culture/infection: 12/19/15 MDRO Source:: right arm Past Surgical History: Cholecystectomy Past Anesthesia/Blood Transfusion Reactions: No Reported Reaction Smoking Status: Current every day smoker Medications and Allergies Home Medications Medication Instructions Recorded Confirmed Type Sertraline [Zoloft] 75 mg PO HS 04/30/18 07/31/18 History Medroxyprogesterone Acetate 104 mg SQ Q90D 07/31/18 07/31/18 History [Depo-Subq Provera 104] Allergies Allergy/AdvReac Type Severity Reaction Status Date / Time codeine AdvReac Nausea & Verified 07/31/18 13:54 Vomiting Exam Osteopathic Statement: *. No significant issues noted on an osteopathic structural exam other than those noted in the History and Physical/Consult. - OBG Physical Exam Breast: both: normal (no masses) Abdomen: bowel sounds normal, no diffuse tenderness, no bruit present, no guarding noted, no hepatomegaly, no splenomegaly, no mass Vulva: both: normal Vagina: normal moisture, no discharge Cervix: no lesion, no discharge Uterus: normal size, normal contour Adnexa: both: normal Anus/Rectum: normal perianal skin, no rectal mass, no hemorrhoids, heme negative
[~2018-08-04 06:22] MED LIST: DEXAMETHASONE SOD PHOSPHATE 10 MG/ML 1 ML VIAL IV ONE; LACTATED RINGERS 1,000 ML IV SCH; LIDOCAINE 1% 20 ML VIAL (10MG/ML) FOR IV START INTRADERMA PRN; MIDAZOLAM (PF) 2 MG/2 ML VIAL IV PRN; ONDANSETRON 4 MG/2 ML VIAL IVP ONE; Pre Op ABX Message 1 EACH MISC MISCELLANE ONE; SCOPOLAMINE 1.5MG/72HR PATCH TRANSDERM ONE
[2018-08-04] MEDS ORDERED: LACTATED RINGERS 1,000 ML IV ONE ×3 (06:50→09:13)
[2018-08-04] MEDS ORDERED: BUPIVACAINE (PF) 0.25% 30 ML VIAL SQ ONE ×3 (07:32→08:18)
[2018-08-04] MEDS ORDERED: NEOSTIGMINE 1 MG/ML 10 ML VIAL ONE (07:38)
[2018-08-04] MEDS ORDERED: SUCCINYLCHOLINE CHLORIDE 100 MG/5 ML SYR IV ONE (07:38)
[2018-08-04] MEDS ORDERED: ROCURONIUM BROMIDE 10 MG/ML 10 ML VIAL IV ONE (07:38)
[2018-08-04] MEDS ORDERED: MIDAZOLAM 2 MG/2 ML VIAL ONE (07:38)
[2018-08-04] MEDS ORDERED: KETOROLAC 30 MG/ML 1 ML VIAL ONE (07:38)
[2018-08-04] MEDS ORDERED: fentaNYL (PF) 50 MCG/ML 2 ML AMP ONE (07:38)
[2018-08-04] MEDS ORDERED: GLYCOPYRROLATE 0.2 MG/ML 2 ML VIAL ONE (07:38)
[2018-08-04] MEDS ORDERED: PROPOFOL 10 MG/ML 20 ML VIAL IV ONE (07:38)
[2018-08-04] MEDS ORDERED: LIDOCAINE 1% INJ 10MG/ML (20 ML MDV) ONE (07:38)
[2018-08-04] MEDS ORDERED: ONDANSETRON 4 MG/2 ML VIAL IVP ONE (08:35)
[2018-08-04 08:45] VITALS: TEMP 97.9
[2018-08-04] MEDS: HYDROmorphone 0.5 MG/0.5 ML SYRINGE IVP PRN ×2 (08:56→09:11)
--- NOTE | 2018-08-04 09:09 | PCN ---
PROCEDURE NOTE PREOPERATIVE DIAGNOSIS: Pelvic pain. POSTOPERATIVE DIAGNOSIS: Pelvic pain with stage I endometriosis. PROCEDURE: Diagnostic laparoscopy with electrofulguration of endometrial implant. SURGEON: Antwon Garrido DO COMPLICATIONS: None. CONDITION ON DISCHARGE FROM OR: Stable. FINDINGS: One small endometrial implant on the right uterosacral ligament. ESTIMATED BLOOD LOSS: 5 mL. URINE OUTPUT: 20 mL by red rubber catheter. PROCEDURE DESCRIPTION: The patient was taken to the operating suite, where a general anesthetic was found to be adequate. She was prepped and draped in the normal sterile fashion and placed in the dorsal lithotomy position. Initially, a speculum was used to identify the cervix which was grasped with a single-tooth tenaculum. The uterus was then sounded to 8 cm and a uterine manipulator was inserted without difficulty. Tenaculum and speculum were then removed and a red rubber catheter was used to drain the bladder of urine. Gloves were then changed and attention was turned to the abdominal portion of the procedure where 2 mL of 0.25% Marcaine was injected periumbilically. Through this injected anesthetic, a 5 mm skin incision was made and through this incision, under direct visualization with an optical trocar and sleeve, the camera was inserted. Once peritoneal placement was assured, gas was allowed to fully insufflate the abdomen and patient was then placed in steep Trendelenburg position. A second 5 mm skin incision was then made 3 cm above the pubic symphysis in the midline and through this incision, a 5 mm port and sleeve were also inserted under direct visualization. Observation of the pelvis was noted. Appendix and liver both grossly appeared normal. No bowel issues were identified. Within the pelvis, there was one small endometrial implant on the right uterosacral ligament midway between the pelvic sidewall and the uterus, this was electrofulgurated with a J-hook cautery. Thorough evaluation of the remainder of the pelvis did not reveal any other endometrial implants or other findings that would explain her pain. Once this was accomplished, all instruments were removed and gas was allowed to expel from the abdomen. Five deep breaths were provided during this process. 4-0 Vicryl was then used to close the incision subcuticularly and another 5 or 6 mL of 0.25% Marcaine was injected around these incisions. Instruments were then removed from the vagina. Sponge, lap, needle counts were all correct x2. The patient was then taken to the recovery room in stable and satisfactory condition. [id number] / ANDRÉSN: [id number] /
[2018-08-04] MEDS ORDERED: diphenhydrAMINE 50 MG/ML 1 ML VIAL IVP ONE (09:18)
[2018-08-04 10:00] VITALS: RESP 18
[2018-08-04 10:56] VITALS: BP 101/67; PULSE 63
== END 2018-08-04 11:25 | disposition home or self-care (01) ==
LOC: OR 06:22
PROVIDERS: ATTEND Obstetrics & Gynecology
DX: N80.3 Endometriosis of pelvic peritoneum (principal); Z86.19 Personal history of other infectious and parasitic diseases; Z86.14 Personal history of Methicillin resistant Staphylococcus aureus infection; F17.210 Nicotine dependence, cigarettes, uncomplicated; F32.9 Major depressive disorder, single episode, unspecified; Z79.3 Long term (current) use of hormonal contraceptives; Z79.899 Other long term (current) drug therapy; Z88.5 Allergy status to narcotic agent
CPT/HCPCS: 58662; 81025; J2250 ×2; J1200; J1100; J2710; J2405; J2001; J3010; J1885; J0330; J2704; J1170

== ENCOUNTER → 2019-02-19 | Outpatient (CLI) | payer OTHER | END | disposition home or self-care (01) | LOC: LABWHC1 06:38 | PROVIDERS: ATTEND Obstetrics & Gynecology | DX: N92.6 Irregular menstruation, unspecified (principal) | CPT/HCPCS: 36415; 84702 ==

== ENCOUNTER 2019-07-28 19:59 | Emergency (ER) | payer OTHER ==
[2019-07-28] MEDS ORDERED: diphenhydrAMINE 50 MG/ML 1 ML VIAL IVP STA (21:02)
[2019-07-28] MEDS ORDERED: methylPREDNISolone SOD SUCCI 125 MG/2 ML VIAL IV STA (21:02)
[2019-07-28] MEDS ORDERED: SODIUM CHLORIDE 0.9% 1,000 ML IV ONE (21:02)
[2019-07-28 21:24] VITALS: RESP 16
[2019-07-28 21:52] LABS: Basophils # (A) 0.1 k/uL (0-0.2); Basophils % (A) 1 %; Eosinophils # (A) 0.2 k/uL (0-0.7); Eosinophils % (A) 2 %; HCT 43.6 % (34.0-46.0); HGB 14.6 gm/dL (11.4-16.0); Lymphocytes # (A) 3.8 k/uL (1.0-4.8); Lymphocytes % (A) 37 %; MCHC 33.4 g/dL (31.0-37.0); MCV 89.8 fL (80.0-100.0); Mean Platelet Volume 7.3; Monocytes # (A) 0.4 k/uL (0-1.0); Monocytes % (A) 4 %; Neutrophils # (A) 5.8 k/uL (1.3-7.7); Neutrophils % (A) 56 %; Platelet Count 250 k/uL (150-450); RBC 4.86 m/uL (3.80-5.40); WBC 10.4 k/uL (3.8-10.6)
[2019-07-28 22:01] LABS: ALT 20 U/L (4-34); AST 22 U/L (14-36); African American GFR (CKD) >90 (>60 ml/min/1.73 sqM); Albumin 4.2 g/dL (3.5-5.0); Alkaline Phosphatase 72 U/L (38-126); Anion Gap 7 mmol/L; Blood Urea Nitrogen 7 mg/dL (7-17); Calcium 9.8 mg/dL (8.4-10.2); Carbon Dioxide 26 mmol/L (22-30); Chloride 107 mmol/L (98-107); Glucose 85 mg/dL (74-99); Magnesium 1.9 mg/dL (1.6-2.3); Non-African American GFR(CKD) >90 (>60 ml/min/1.73 sqM); Sodium 140 mmol/L (137-145); Total Bilirubin 0.4 mg/dL (0.2-1.3); Total Protein 7.7 g/dL (6.3-8.2)
[2019-07-28] MEDS ORDERED: CYCLOBENZAPRINE 10MG STARTER 3 TAB BTL PO STA (22:31)
--- NOTE | 2019-07-28 22:41 | ED ---
Recheck HPI - General Chief Complaint: Recheck/Abnormal Lab/Rx Stated Complaint: leg cramping Time Seen by Provider: 07/28/19 20:26 Source: patient Mode of arrival: wheelchair Limitations: no limitations - History of Present Illness Initial Comments: 28-year-old female presenting today for chief complaint of bilateral leg cramping. Patient states her upper extremities and lower extremities having cramping since approximately 2 hours after she seemed double shot. She states except somewhat she feels like she cannot walk. Patient denies any weakness. Patient states she has a slight headache denies this coming on suddenly or being the worse headache of her life. She states she has he's occasionally. Patient denies any fevers, speech changes neck stiffness nausea vomiting visual changes. Patient denies any other complaints. Patient did not on ROS that a week ago she had sharp right sided chest pain that lasted < 15 minutes. No symptoms since, no jaw, arm pain, epigastric pain. Patient concerned she was having reaction to depot shot and presented for evaluation. Denies rash, tongue swelling. - Related Data Home Medications Medication Instructions Recorded Confirmed Sertraline [Zoloft] 75 mg PO HS 04/30/18 07/31/18 Medroxyprogesterone Acetate 104 mg SQ Q90D 07/31/18 07/31/18 [Depo-Subq Provera 104] Previous Rx's Medication Instructions Recorded HYDROcodone/APAP 5-325MG [[place] 1 tab PO Q4HR PRN #20 tab 08/04/18 5-325] Ibuprofen [Motrin] 600 mg PO Q6HR PRN #30 tab 08/04/18 Allergies Allergy/AdvReac Type Severity Reaction Status Date / Time codeine AdvReac Nausea & Verified 07/28/19 20:09 Vomiting Review of Systems ROS Statement: Those systems with pertinent positive or pertinent negative responses have been documented in the HPI. ROS Other: All systems not noted in ROS Statement are negative. Past Medical History Past Medical History: No Reported History History of Any Multi-Drug Resistant Organisms: MRSA Date of last positivie culture/infection: 12/19/15 MDRO Source:: right arm Past Surgical History: Cholecystectomy Past Psychological History: Bipolar, Depression Smoking Status: Current every day smoker Past Alcohol Use History: None Reported Past Drug Use History: Marijuana General Exam - General Exam Comments Initial Comments: General: The patient is awake and alert, in no distress, and does not appear acutely ill. Eye: +3 mm pupils are equal, round and reactive to light, extra-ocular movements are intact. No nystagmus. There is normal conjunctiva bilaterally. No signs of icterus. Ears, nose, mouth and throat: There are moist mucous membranes and no oral lesions. Neck: The neck is supple, there is no tenderness or JVD. Cardiovascular: There is a regular rate and rhythm. No murmur, rub or gallop is appreciated. Respiratory: Lungs are clear to auscultation, respirations are non-labored, breath sounds are equal. No wheezes, stridor, rales, or rhonchi. Gastrointestinal: Soft, non-distended, non-tender abdomen without masses or organomegaly noted. There is no rebound or guarding present. Musculoskeletal: Normal ROM, no tenderness. Strength 5/5 of the LE b/l and UE b/l. Sensation intact. Radial pulses equal bilaterally 2+. Neurological: A&O x 3. CN II-XII intact grossly, There are no obvious motor or sensory deficits. Coordination appears grossly intact. Speech is normal. Skin: Skin is warm and dry and no rashes or lesions are noted. No rashes/red ness near injection site on right upper arm. No LE edema. Psychiatric: Cooperative, appropriate mood & affect, normal judgment. Limitations: no limitations Course Vital Signs 07/28/19 07/28/19 07/28/19 20:06 21:19 21:23 Temperature 97.8 F Pulse Rate 90 66 Respiratory 20 20 16 Rate Blood Pressure 143/105 130/75 O2 Sat by Pulse 97 98 Oximetry 07/28/19 23:04 Temperature 98.1 F Pulse Rate 75 Respiratory 16 Rate Blood Pressure 133/81 O2 Sat by Pulse 98 Oximetry - Reevaluation(s) Reevaluation #1: 07/28/19 22:50 reassessment, patient states feeling "much better" and tht she is ready to go home. will be discharged, discussed case with Dr. Goel Medical Decision Making - Medical Decision Making 28-year-old female presenting for muscle cramping after DEPOT injection. Given Solu-Medrol, Benadryl. Patient states symptoms are now alleviated patient given starter pack of Norflex. She appears well history of chest pain a week ago symptoms hasn't had not had any persistent or consistent symptoms. ekg no findings consistent with acute mi, troponin (-). no murmur on exam. lungs clear. no leg swelling. No electrolyte derangements. CK WNL. Patient appears well statign she is ready to go home, i discussed avoiding depot shot and discussing reaction with PCP. Patient verbalized understanding, case discussed with Dr. Goel who was agreeble with care plan and d/c. - Lab Data Result diagrams: 07/28/19 21:11 07/28/19 21:11 Lab Results 07/28/19 07/28/19 07/28/19 Range/Units 21:11 21:11 21:11 WBC 10.4 (3.8-10.6) k/uL RBC 4.86 (3.80-5.40) m/uL Hgb 14.6 (11.4-16.0) gm/dL Hct 43.6 (34.0-46.0) % MCV 89.8 (80.0-100.0) fL MCH 30.0 (25.0-35.0) pg MCHC 33.4 (31.0-37.0) g/dL RDW 12.0 (11.5-15.5) % Plt Count 250 (150-450) k/uL Neutrophils % 56 % Lymphocytes % 37 % Monocytes % 4 % Eosinophils % 2 % Basophils % 1 % Neutrophils # 5.8 (1.3-7.7) k/uL Lymphocytes # 3.8 (1.0-4.8) k/uL Monocytes # 0.4 (0-1.0) k/uL Eosinophils # 0.2 (0-0.7) k/uL Basophils # 0.1 (0-0.2) k/uL Sodium 140 (137-145) mmol/L Potassium 4.0 (3.5-5.1) mmol/L Chloride 107 (98-107) mmol/L Carbon Dioxide 26 (22-30) mmol/L Anion Gap 7 mmol/L BUN 7 (7-17) mg/dL Creatinine 0.56 (0.52-1.04) mg/dL Est GFR (CKD-EPI)AfAm >90 (>60 ml/min/1.73 sqM) Est GFR (CKD-EPI)NonAf >90 (>60 ml/min/1.73 sqM) Glucose 85 (74-99) mg/dL Calcium 9.8 (8.4-10.2) mg/dL Magnesium 1.9 (1.6-2.3) mg/dL Total Bilirubin 0.4 (0.2-1.3) mg/dL AST 22 (14-36) U/L ALT 20 (4-34) U/L Alkaline Phosphatase 72 (38-126) U/L Creatine Kinase (30-135) U/L Troponin I <0.012 (0.000-0.034) ng/mL Total Protein 7.7 (6.3-8.2) g/dL Albumin 4.2 (3.5-5.0) g/dL 07/28/19 Range/Units 21:11 WBC (3.8-10.6) k/uL RBC (3.80-5.40) m/uL Hgb (11.4-16.0) gm/dL Hct (34.0-46.0) % MCV (80.0-100.0) fL MCH (25.0-35.0) pg MCHC (31.0-37.0) g/dL RDW (11.5-15.5) % Plt Count (150-450) k/uL Neutrophils % % Lymphocytes % % Monocytes % % Eosinophils % % Basophils % % Neutrophils # (1.3-7.7) k/uL Lymphocytes # (1.0-4.8) k/uL Monocytes # (0-1.0) k/uL Eosinophils # (0-0.7) k/uL Basophils # (0-0.2) k/uL Sodium (137-145) mmol/L Potassium (3.5-5.1) mmol/L Chloride (98-107) mmol/L Carbon Dioxide (22-30) mmol/L Anion Gap mmol/L BUN (7-17) mg/dL Creatinine (0.52-1.04) mg/dL Est GFR (CKD-EPI)AfAm (>60 ml/min/1.73 sqM) Est GFR (CKD-EPI)NonAf (>60 ml/min/1.73 sqM) Glucose (74-99) mg/dL Calcium (8.4-10.2) mg/dL Magnesium (1.6-2.3) mg/dL Total Bilirubin (0.2-1.3) mg/dL AST (14-36) U/L ALT (4-34) U/L Alkaline Phosphatase (38-126) U/L Creatine Kinase 89 (30-135) U/L Troponin I (0.000-0.034) ng/mL Total Protein (6.3-8.2) g/dL Albumin (3.5-5.0) g/dL - EKG Data EKG Comments: Ventricular rate 61 bpm, CA interval 148 ms, QRS oriental orthodox 94 ms, QT/QTc 402/404 ms. No nystagmus no ST elevation or depression. Nonspecific T wave abnormality. Disposition Clinical Impression: Leg cramping, Hx of chest pain Disposition: HOME SELF-CARE Condition: Good Instructions (If sedation given, give patient instructions): Leg Cramps (ED) Additional Instructions: Please use medication as discussed. Please follow-up with family doctor in the next 2 days. Please return to emergency room if the symptoms increase or worsen or for any other concerns. Is patient prescribed a controlled substance at d/c from ED?: No Referrals: Yash Mullen MD [Primary Care Provider] - 1-2 days Time of Disposition: 22:43
[2019-07-28 23:05] VITALS: BP 133/81; PULSE 75; TEMP 98.1
== END 2019-07-28 23:05 | disposition home or self-care (01) ==
LOC: EC 19:59
DX: R25.2 Cramp and spasm (principal); Z86.79 Personal history of other diseases of the circulatory system; R51 Headache; F31.9 Bipolar disorder, unspecified; F17.200 Nicotine dependence, unspecified, uncomplicated; Z88.5 Allergy status to narcotic agent; Z79.3 Long term (current) use of hormonal contraceptives; Z79.899 Other long term (current) drug therapy; Z86.14 Personal history of Methicillin resistant Staphylococcus aureus infection
CPT/HCPCS: 36415; 93005; 80053; 82550; 83735; 84484; 85025; 99283; 96374; 96375; 96361; J1200; J2930

== ENCOUNTER 2019-12-17 10:52 | Emergency (ER) | payer OTHER ==
[2019-12-17 11:06] VITALS: BP 120/84; PULSE 87; RESP 18; TEMP 98.2
--- NOTE | 2019-12-17 11:32 | ED ---
General Adult HPI - General Chief complaint: Extremity Injury, Lower Stated complaint: Lt knee injury Time Seen by Provider: 12/17/19 11:09 Source: patient, RN notes reviewed Mode of arrival: wheelchair Limitations: physical limitation - History of Present Illness Initial comments: 29-year-old female presents to the emergency department for a chief complaint of left knee pain. Patient states one week ago she was getting out of her car when she felt a sudden pop and severe pain in the left knee. Patient states the next day it was swollen. Patient states it is painful to bend and to walk on. Patient denies fevers. Patient denies any redness of the left knee. She does admit that last year it was thought that she may have torn her PCL but she did not have orthopedic follow-up because her insurance ran out. Patient denies any fevers at home. Patient has no other complaints at this time including shortness of breath, chest pain, abdominal pain, nausea or vomiting, headache, or visual changes. - Related Data Home Medications Medication Instructions Recorded Confirmed Sertraline [Zoloft] 75 mg PO HS 04/30/18 07/31/18 Medroxyprogesterone Acetate 104 mg SQ Q90D 07/31/18 07/31/18 [Depo-Subq Provera 104] Previous Rx's Medication Instructions Recorded HYDROcodone/APAP 5-325MG [[place] 1 tab PO Q4HR PRN #20 tab 08/04/18 5-325] Ibuprofen [Motrin] 600 mg PO Q6HR PRN #30 tab 08/04/18 Allergies Allergy/AdvReac Type Severity Reaction Status Date / Time codeine AdvReac Nausea & Verified 12/17/19 11:06 Vomiting Review of Systems ROS Statement: Those systems with pertinent positive or pertinent negative responses have been documented in the HPI. ROS Other: All systems not noted in ROS Statement are negative. Past Medical History Past Medical History: No Reported History Additional Past Medical History / Comment(s): Hep C History of Any Multi-Drug Resistant Organisms: MRSA Date of last positivie culture/infection: 12/19/15 MDRO Source:: right arm Past Surgical History: Cholecystectomy Past Psychological History: Bipolar, Depression Smoking Status: Current every day smoker Past Alcohol Use History: None Reported Past Drug Use History: Marijuana General Exam Limitations: physical limitation General appearance: alert, in no apparent distress Head exam: Present: atraumatic, normocephalic, normal inspection Eye exam: Present: normal appearance, PERRL, EOMI. Absent: scleral icterus, conjunctival injection, periorbital swelling ENT exam: Present: normal exam, mucous membranes moist Neck exam: Present: normal inspection. Absent: tenderness, meningismus, lymphadenopathy Respiratory exam: Present: normal lung sounds bilaterally. Absent: respiratory distress, wheezes, rales, rhonchi, stridor Cardiovascular Exam: Present: regular rate, normal rhythm, normal heart sounds. Absent: systolic murmur, diastolic murmur, rubs, gallop, clicks Extremities exam: Present: tenderness (Tenderness noted to the medial aspect of the left knee.), normal capillary refill (Capillary refill less than 2 seconds, DP pulses 2+.), joint swelling (Patient has mild edema of the left knee without erythema or increased warmth. No evidence of infection.), other (Sensation intact in the left lower extremity. No ecchymosis or contusion.). Absent: full ROM (Patient has about 45 degrees flexion of the left knee), pedal edema, calf tenderness (No calf tenderness, negative Homans sign.) Course Vital Signs 12/17/19 11:02 Temperature 98.2 F Pulse Rate 87 Respiratory 18 Rate Blood Pressure 120/84 O2 Sat by Pulse 97 Oximetry Medical Decision Making - Medical Decision Making X-ray of the left knee shows a moderate knee joint effusion. MRI can assess her internal derangement if indicated. No acute osseous abnormality seen. As d iscussed do not see any erythema or increased warmth of the left knee. I do not see evidence of infection and HPI is consistent with physical trauma. Patient was placed in a knee immobilizer and referred to orthopedics. Patient will follow up with them and return for any worsening symptoms. - Lab Data Lab Results 12/17/19 Range/Units 11:26 Urine HCG, Qual Not Detected (Not Detectd) Disposition Clinical Impression: Effusion of left knee joint Disposition: HOME SELF-CARE Condition: Good Instructions (If sedation given, give patient instructions): Knee Pain (ED) Additional Instructions: Please use the knee immobilizer until you see orthopedics. Use crutches as needed. Take Motrin and Tylenol for pain. Follow-up with orthopedics by calling today for their earliest appointment. Return for any other worsening symptoms. If you have any fevers make sure to return as well. Is patient prescribed a controlled substance at d/c from ED?: No Referrals: Yash Mullen MD [Primary Care Provider] - 1-2 days Hair Stephen MD [STAFF PHYSICIAN] - 1-2 days Time of Disposition: 12:34
[2019-12-17] MEDS ORDERED: KETOROLAC 30 MG/ML 1 ML VIAL IM STA (11:36)
--- NOTE | 2019-12-17 12:26 | XR ---
EXAMINATION TYPE: XR knee complete LT DATE OF EXAM: 12/17/2019 COMPARISON: 03/20/2018 HISTORY: 29-year-old female with pain TECHNIQUE: 3 views FINDINGS: Moderate knee joint effusion in the suprapatellar pouch. Extensor mechanism is intact. No acute fract ure, subluxation, or dislocation. IMPRESSION: Moderate knee joint effusion. MRI can assess for internal derangement if indicated. No acute osseous abnormality seen.
== END 2019-12-17 12:54 | disposition home or self-care (01) ==
LOC: EC 10:52
DX: M25.462 Effusion, left knee (principal); F31.9 Bipolar disorder, unspecified; F17.200 Nicotine dependence, unspecified, uncomplicated; Z79.899 Other long term (current) drug therapy; Z88.5 Allergy status to narcotic agent
CPT/HCPCS: 81025; 73562; 99283; 96372; L1830; J1885

== ENCOUNTER → 2020-08-02 | Outpatient (CLI) | payer OTHER ==
[2020-08-02 09:18] LABS: Basophils % (A) 0 %; Eosinophils # (A) 0.1 k/uL (0-0.7); Eosinophils % (A) 2 %; HCT 42.1 % (34.0-46.0); HGB 13.9 gm/dL (11.4-16.0); Lymphocytes % (A) 39 %; MCH 30.4 pg (25.0-35.0); MCHC 33.1 g/dL (31.0-37.0); MCV 91.8 fL (80.0-100.0); Mean Platelet Volume 7.4; Monocytes # (A) 0.4 k/uL (0-1.0); Monocytes % (A) 5 %; Neutrophils % (A) 53 %; Platelet Count 262 k/uL (150-450); RBC 4.58 m/uL (3.80-5.40); RDW 12.6 % (11.5-15.5); WBC 7.6 k/uL (3.8-10.6)
[2020-08-02 15:50] LABS: Alpha Fetoprotein, Tumor Mkr 4.6 ng/mL (0.0-7.9)
[2020-08-02 16:41] LABS: Hepatitis A Antibody IgM Non-Reactive (Non-Reactive); Hepatitis B Core IgM Non-Reactive (Non-Reactive); Hepatitis B Surface Antigen Non-Reactive (Non-Reactive); Hepatitis C IgG Antibody Reactive (Non-Reactive)
[2020-08-02 16:49] LABS: African American GFR (CKD) 141.8 (60.0-200.0); Albumin 4.1 g/dL (3.80-4.90); Albumin/Globulin Ratio 1.58 (1.60-3.17); Anion Gap 13.4 mmol/L (4.00-12.00); BUN/Creat Ratio 11.67 Ratio (12.00-20.00); Calcium 9.1 mg/dL (8.7-10.3); Carbon Dioxide 21.6 mmol/L (21.6-31.8); Globulin 2.6 g/dL (1.6-3.3); Non-African American GFR(CKD) 122.3 (60.0-200.0); Potassium 3.9 mmol/L (3.5-5.5); Total Bilirubin 0.3 mg/dL (0.3-1.2); Total Protein 6.7 g/dL (6.2-8.2)
[2020-08-02 16:56] LABS: HIV 2 AB Non-Reactive (Non-Reactive); HIV AB P24 Non-Reactive (Non-Reactive); HIV P24 AG Non-Reactive (Non-Reactive)
[2020-08-02 20:15] LABS: INR <0.91 (0.90-1.11); Prothrombin Time <9.9 sec (9.9-11.9)
== END | disposition home or self-care (01) ==
LOC: LABWHC1 08:15
PROVIDERS: ATTEND Nurse Practitioner
DX: B18.2 Chronic viral hepatitis C (principal)
CPT/HCPCS: 36415; 80053; 80074; 82105; 85025; 85610; 87390; 87521

== ENCOUNTER → 2020-08-04 | Outpatient (CLI) | payer OTHER ==
--- NOTE | 2020-08-04 09:21 | US ---
EXAMINATION TYPE: US liver DATE OF EXAM: 08/04/2020 COMPARISON: NONE CLINICAL HISTORY: 29-year-old female B18.2 CHR VIRAL HEP C. Hepatitis C for 7 years, not approved for treatment yet, right sided pain TECHNIQUE: Multiple sonographic images of the right upper quadrant are obtained. FINDINGS: EXAM MEASUREMENTS: Liver Length: 17.5 cm Gallbladder: Surgically absent CBD: 0.5 cm Right Kidney: 10.5 x 4.4 x 4.5 cm Pancreas: Most of the pancreas is visualized and shows no gross abnormality. Liver: Inhomogeneous appearance but without focal lesion seen. Borderline in size. Gallbladder: Surgically absent Evidence for sonographic Moe's sign: NO CBD: wnl Right Kidney: wnl IMPRESSION: Borderline sized liver (17.5 cm) with slightly inhomogeneous appearance to the liver parenchyma in [facility] with reported history of underlying hepatitis. No sonographic evidence for hepatoma. Status post cholecystectomy. No biliary ductal dilatation.
== END | disposition home or self-care (01) ==
LOC: EEVIPCON 08:46 → RADUSWWP 08:46
PROVIDERS: ATTEND Internal Medicine Gastroenterology
DX: K75.9 Inflammatory liver disease, unspecified (principal); Z90.49 Acquired absence of other specified parts of digestive tract
CPT/HCPCS: 76705

== ENCOUNTER 2020-10-02 10:04 | Emergency (ER) | payer OTHER ==
[2020-10-02 11:02] VITALS: TEMP 98.1
--- NOTE | 2020-10-02 11:34 | XR ---
EXAMINATION TYPE: XR knee complete LT DATE OF EXAM: 10/02/2020 COMPARISON: None HISTORY: 30-year-old female with pain and swelling TECHNIQUE: 3 views FINDINGS: There is a moderate to large knee joint effusion. Extensor mechanism appears intact. No acute fractur e, subluxation, dislocation. IMPRESSION: No acute osseous abnormality seen. However, there is a moderate to large knee joint effusion. Further clinical correlation recommended. If concern for internal derangement, MRI can be performed.
[2020-10-02] MEDS ORDERED: KETOROLAC 15 MG/ML 1 ML VIAL IVP STA (12:02)
--- NOTE | 2020-10-02 12:26 | ED ---
General Adult HPI - General Chief complaint: Extremity Injury, Lower Stated complaint: leg swelling/fluid retention Time Seen by Provider: 10/02/20 11:14 Source: patient, RN notes reviewed Mode of arrival: ambulatory Limitations: no limitations - History of Present Illness Initial comments: 30-year-old female with a past medical history of hepatitis C, remote IV drug abuse, clean for the past 8 years presents to the emergency room for a chief complaint of left knee pain and swelling. Patient reports that this started last night. Patient did have issues with her knee about 6 months ago and was using a brace. States it has resolved. Patient does not remember injuring her knee. States it is painful to walk on. She has not had fevers or chills. She denies any redness around the area. Denies constitutional symptoms.Patient has no other complaints at this time including shortness of breath, chest pain, abdominal pain, nausea or vomiting, headache, or visual changes. - Related Data Home Medications Medication Instructions Recorded Confirmed Sertraline [Zoloft] 75 mg PO HS 04/30/18 07/31/18 Medroxyprogesterone Acetate 104 mg SQ Q90D 07/31/18 07/31/18 [Depo-Subq Provera 104] Previous Rx's Medication Instructions Recorded HYDROcodone/APAP 5-325MG [[place] 1 tab PO Q4HR PRN #20 tab 08/04/18 5-325] Ibuprofen [Motrin] 600 mg PO Q6HR PRN #30 tab 08/04/18 Allergies Allergy/AdvReac Type Severity Reaction Status Date / Time codeine AdvReac Nausea & Verified 12/17/19 11:06 Vomiting medroxyprogesterone AdvReac Nausea & Verified 10/02/20 12:47 [From Depo-Provera] Vomiting Review of Systems ROS Statement: Those systems with pertinent positive or pertinent negative responses have been documented in the HPI. ROS Other: All systems not noted in ROS Statement are negative. Past Medical History Past Medical History: No Reported History Additional Past Medical History / Comment(s): Hep C History of Any Multi-Drug Resistant Organisms: MRSA Date of last positivie culture/infection: 12/19/15 MDRO Source:: right arm Past Surgical History: Cholecystectomy Past Psychological History: Bipolar, Depression Smoking Status: Current some day smoker Past Alcohol Use History: None Reported Past Drug Use History: None Reported General Exam Limitations: no limitations General appearance: alert, in no apparent distress Head exam: Present: atraumatic, normocephalic, normal inspection Eye exam: Present: normal appearance, PERRL, EOMI. Absent: scleral icterus, conjunctival injection, periorbital swelling ENT exam: Present: normal exam, mucous membranes moist Neck exam: Present: normal inspection, full ROM. Absent: tenderness, meningismus, lymphadenopathy Respiratory exam: Present: normal lung sounds bilaterally. Absent: respiratory distress, wheezes, rales, rhonchi, stridor Cardiovascular Exam: Present: regular rate, normal rhythm, normal heart sounds. Absent: systolic murmur, diastolic murmur, rubs, gallop, clicks GI/Abdominal exam: Present: soft, normal bowel sounds. Absent: distended, tenderness, guarding, rebound, rigid Extremities exam: Present: tenderness (Tenderness noted to the anterior knee.), normal capillary refill (Capillary refill less than 2 seconds, DP pulse 2+ in the LLE), joint swelling (Patient has anterior moderate edema of the left kidney), other (Sensation intact left lower extremity. There is no redness or increased warmth of the left knee.). Absent: full ROM (Patient able to flex knee 15, full extension.), calf tenderness Course Vital Signs 10/02/20 11:00 Temperature 98.1 F Pulse Rate 86 Respiratory 19 Rate Blood Pressure 120/84 O2 Sat by Pulse 98 Oximetry Medical Decision Making - Medical Decision Making Vitals are stable. Patient is well-appearing. additional symptoms. No fevers. She does have an edematous left knee however 15 flexion and full extension. Patient able to ambulate on the left knee. No redness or increased warmth of t he left knee. X-ray does show moderate to large knee joint effusion. CBC does show a white count of 10. Otherwise unremarkable. CMP unremarkable. CRP 52, mildly elevated, nonspecific. Patient states she did injure that knee about 6 months ago and was wearing a knee immobilizer. At this time I do not see any evidence of infection of the left knee. It we will apply knee immobilizer and refer her to orthopedics. She will do rice therapy and anti-inflammatories. However if patient develops fever or any worsening symptoms she is aware to return to the ER. - Lab Data Result diagrams: 10/02/20 12:25 10/02/20 12:25 Lab Results 10/02/20 10/02/20 Range/Units 12:25 12:25 WBC 10.1 (3.8-10.6) k/uL RBC 4.53 (3.80-5.40) m/uL Hgb 14.1 (11.4-16.0) gm/dL Hct 40.9 (34.0-46.0) % MCV 90.3 (80.0-100.0) fL MCH 31.2 (25.0-35.0) pg MCHC 34.5 (31.0-37.0) g/dL RDW 12.0 (11.5-15.5) % Plt Count 283 (150-450) k/uL MPV 7.3 Neutrophils % 63 % Lymphocytes % 31 % Monocytes % 4 % Eosinophils % 1 % Basophils % 0 % Neutrophils # 6.3 (1.3-7.7) k/uL Lymphocytes # 3.1 (1.0-4.8) k/uL Monocytes # 0.4 (0-1.0) k/uL Eosinophils # 0.1 (0-0.7) k/uL Basophils # 0.0 (0-0.2) k/uL Sodium 134 L (137-145) mmol/L Potassium 4.5 (3.5-5.1) mmol/L Chloride 105 (98-107) mmol/L Carbon Dioxide 24 (22-30) mmol/L Anion Gap 5 mmol/L BUN 6 L (7-17) mg/dL Creatinine 0.45 L (0.52-1.04) mg/dL Est GFR (CKD-EPI)AfAm >90 (>60 ml/min/1.73 sqM) Est GFR (CKD-EPI)NonAf >90 (>60 ml/min/1.73 sqM) Glucose 95 (74-99) mg/dL Calcium 9.4 (8.4-10.2) mg/dL C-Reactive Protein 52.6 H (<10.0) mg/L Disposition Clinical Impression: Knee pain, left Disposition: HOME SELF-CARE Condition: Good Instructions (If sedation given, give patient instructions): Knee Pain (ED) Additional Instructions: Please take Motrin and Tylenol for pain. Use knee immobilizer. Please follow- up with orthopedics in one to 2 days. Please return to the emergency room for any worsening symptoms. Is patient prescribed a controlled substance at d/c from ED?: No Referrals: Sajan Cosme MD [Primary Care Provider] - 1-2 days Krunal Ivory MD [STAFF PHYSICIAN] - 1-2 days Time of Disposition: 13:43
[2020-10-02 12:46] LABS: Basophils % (A) 0 %; Eosinophils # (A) 0.1 k/uL (0-0.7); Eosinophils % (A) 1 %; HCT 40.9 % (34.0-46.0); HGB 14.1 gm/dL (11.4-16.0); Lymphocytes # (A) 3.1 k/uL (1.0-4.8); Lymphocytes % (A) 31 %; MCH 31.2 pg (25.0-35.0); MCHC 34.5 g/dL (31.0-37.0); MCV 90.3 fL (80.0-100.0); Mean Platelet Volume 7.3; Monocytes # (A) 0.4 k/uL (0-1.0); Monocytes % (A) 4 %; Neutrophils # (A) 6.3 k/uL (1.3-7.7); Neutrophils % (A) 63 %; Platelet Count 283 k/uL (150-450); RBC 4.53 m/uL (3.80-5.40); WBC 10.1 k/uL (3.8-10.6)
[2020-10-02 12:56] LABS: African American GFR (CKD) >90 (>60 ml/min/1.73 sqM); Anion Gap 5 mmol/L; Blood Urea Nitrogen 6 mg/dL (7-17); C Reactive Protein 52.6 mg/L (<10.0); Calcium 9.4 mg/dL (8.4-10.2); Carbon Dioxide 24 mmol/L (22-30); Chloride 105 mmol/L (98-107); Glucose 95 mg/dL (74-99); Non-African American GFR(CKD) >90 (>60 ml/min/1.73 sqM); Potassium 4.5 mmol/L (3.5-5.1); Sodium 134 mmol/L (137-145)
[2020-10-02] MEDS ORDERED: ACETAMINOPHEN TAB 500 MG TAB PO STA (13:44)
[2020-10-02 14:02] VITALS: BP 133/88; PULSE 79; RESP 18
== END 2020-10-02 14:02 | disposition home or self-care (01) ==
LOC: EC 10:04
DX: M25.562 Pain in left knee (principal); F32.9 Major depressive disorder, single episode, unspecified; Z79.1 Long term (current) use of non-steroidal anti-inflammatories (NSAID)
CPT/HCPCS: 36415; 80048; 85025; 86140; 73562; 99283; 96374; L1830; J1885

== ENCOUNTER → 2020-10-05 | Outpatient (CLI) | payer OTHER ==
[2020-10-05 18:07] LABS: Basophils # (A) 0.02 X 10*3/uL (0.00-0.10); Basophils % (A) 0.3 %; Eosinophils # (A) 0.13 X 10*3/uL (0.04-0.35); Eosinophils % (A) 1.8 %; HCT 41.6 % (37.2-46.3); Lymphocytes # (A) 2.65 X 10*3/uL (0.90-5.00); Lymphocytes % (A) 36.9 %; MCH 30.9 pg (27.0-32.0); MCHC 33.7 g/dL (32.0-37.0); MCV 91.8 fL (80.0-97.0); Mean Platelet Volume 10.6 fL (9.5-12.2); Monocytes # (A) 0.35 X 10*3/uL (0.20-1.00); Monocytes % (A) 4.9 %; Neutrophils # (A) 4.02 X 10*3/uL (1.80-7.70); Platelet Count 306 X 10*3/uL (140-440); RBC 4.53 X 10*6/uL (4.10-5.20); RDW 12.3 % (11.5-14.5); WBC 7.18 X 10*3/uL (4.50-10.00)
[2020-10-05 23:25] LABS: African American GFR (CKD) 133.8 (60.0-200.0); Albumin 4.3 g/dL (3.80-4.90); Albumin/Globulin Ratio 1.59 (1.60-3.17); Anion Gap 11.6 mmol/L (4.00-12.00); BUN/Creat Ratio 12.86 Ratio (12.00-20.00); Calcium 9.7 mg/dL (8.7-10.3); Carbon Dioxide 22.4 mmol/L (21.6-31.8); Globulin 2.7 g/dL (1.6-3.3); Non-African American GFR(CKD) 115.4 (60.0-200.0); Total Bilirubin 0.2 mg/dL (0.3-1.2)
== END | disposition home or self-care (01) ==
LOC: LABWHC1 08:21
PROVIDERS: ATTEND Nurse Practitioner
DX: B18.2 Chronic viral hepatitis C (principal)
CPT/HCPCS: 36415; 80053; 85025; 87522

== ENCOUNTER → 2020-10-24 | Outpatient (CLI) | payer OTHER ==
--- NOTE | 2020-10-25 04:09 | MR ---
EXAMINATION TYPE: MR knee LT wo con DATE OF EXAM: 10/24/2020 COMPARISON: None HISTORY: Lt knee pain Multiplanar multiecho imaging of the left knee was performed without contrast. The anterior and posterior cruciate ligaments are intact. There is knee joint effusion. The collatera l ligaments are intact. There is horizontal defect through the posterior horn of the medial meniscus which does not extend to the articular surface. The other menisci appear intact. There is no evidence of a fracture. Patella is intact. The joint spaces are fairly normal. There is n o evidence of a soft tissue mass. IMPRESSION: Intrasubstance tear of the posterior horn medial meniscus. No evidence of ligamentous tear. Small knee joint effusion.
== END | disposition home or self-care (01) ==
LOC: RADMRIMAIN 10:38
PROVIDERS: ATTEND Orthopaedic Surgery
DX: S83.242A Other tear of medial meniscus, current injury, left knee, initial encounter (principal); M25.462 Effusion, left knee

== ENCOUNTER → 2020-11-22 | Outpatient (CLI) | payer OTHER ==
[2020-11-22 15:01] LABS: Basophils # (A) 0.03 X 10*3/uL (0.00-0.10); Basophils % (A) 0.3 %; Eosinophils # (A) 0.11 X 10*3/uL (0.04-0.35); Eosinophils % (A) 1.1 %; HCT 43.4 % (37.2-46.3); HGB 14.3 g/dL (12.0-15.0); Lymphocytes # (A) 2.98 X 10*3/uL (0.90-5.00); MCH 30.3 pg (27.0-32.0); MCHC 32.9 g/dL (32.0-37.0); MCV 91.9 fL (80.0-97.0); Mean Platelet Volume 10.8 fL (9.5-12.2); Monocytes # (A) 0.46 X 10*3/uL (0.20-1.00); Monocytes % (A) 4.6 %; Neutrophils # (A) 6.31 X 10*3/uL (1.80-7.70); Neutrophils % (A) 63.7 %; Platelet Count 274 X 10*3/uL (140-440); RBC 4.72 X 10*6/uL (4.10-5.20); RDW 12.4 % (11.5-14.5); WBC 9.92 X 10*3/uL (4.50-10.00)
[2020-11-22 15:33] LABS: INR 0.84 (0.90-1.11); Prothrombin Time 9.3 sec (9.9-11.9)
[2020-11-23 00:39] LABS: African American GFR (CKD) 133.8 (60.0-200.0); Albumin 4.4 g/dL (3.80-4.90); Albumin/Globulin Ratio 1.69 (1.60-3.17); Anion Gap 12.4 mmol/L (4.00-12.00); BUN/Creat Ratio 11.43 Ratio (12.00-20.00); Calcium 9.3 mg/dL (8.7-10.3); Carbon Dioxide 20.6 mmol/L (21.6-31.8); Globulin 2.6 g/dL (1.6-3.3); Non-African American GFR(CKD) 115.4 (60.0-200.0); Potassium 4.6 mmol/L (3.5-5.5); Total Bilirubin 0.4 mg/dL (0.2-1.2)
== END | disposition home or self-care (01) ==
LOC: LABWHC1 08:12
PROVIDERS: ATTEND Nurse Practitioner
DX: B18.2 Chronic viral hepatitis C (principal)
CPT/HCPCS: 36415; 80053; 85025; 85610

== ENCOUNTER 2021-01-09 22:31 | Emergency (ER) | payer OTHER ==
[2021-01-09 22:41] VITALS: PULSE 81; RESP 16; TEMP 98.3
[2021-01-09] MEDS ORDERED: PENICILLIN VK 500MG STARTER 4 TAB BTL PO STA (22:56)
[2021-01-09] MEDS ORDERED: KETOROLAC 15 MG/ML 1 ML VIAL IM STA (22:56)
--- NOTE | 2021-01-09 23:06 | ED ---
General Adult HPI - General Chief complaint: Dental/Oral Stated complaint: Face pain,oral pain Time Seen by Provider: 01/09/21 22:44 Source: patient Mode of arrival: ambulatory Limitations: no limitations - History of Present Illness Initial comments: 30-year-old female presents to the emergency room for chief with dental pain. Patient reports that she weeks ago she fractured her left lower tooth. Patient reports that since that time her pain is worsening. She has been trying to follow-up with the dentist but they're unable to see her until the procedure January. Patient states that the symptoms seem to be getting worse. She denies fevers or chills. Patient states the pain radiates to her jaw. Patient has no other complaints at this time including shortness of breath, chest pain, abdominal pain, nausea or vomiting, headache, or visual changes. - Related Data Home Medications Medication Instructions Recorded Confirmed Epclusa(Unknown Dose) 1 tab PO DAILY 10/02/20 10/02/20 LORazepam 0.5 mg PO BID PRN 10/02/20 10/02/20 Norgestimate-Ethinyl Estradiol 1 tab PO HS 10/02/20 10/02/20 [Sprintec 28 Day Tablet] QUEtiapine FUMARATE [SEROquel] 25 mg PO HS 10/02/20 10/02/20 Vortioxetine Hydrobromide 20 mg PO HS 10/02/20 10/02/20 [Trintellix] Previous Rx's Medication Instructions Recorded HYDROcodone/APAP 5-325MG [[place] 1 tab PO Q6HR PRN #10 tab 01/09/21 5-325] Penicillin V Potassium [Pen Vee K] 500 mg PO Q6H 10 Days #40 tablet 01/09/21 Allergies Allergy/AdvReac Type Severity Reaction Status Date / Time codeine AdvReac Nausea & Verified 01/09/21 22:38 Vomiting medroxyprogesterone AdvReac Nausea & Verified 01/09/21 22:38 [From Depo-Provera] Vomiting Review of Systems ROS Statement: Those systems with pertinent positive or pertinent negative responses have been documented in the HPI. ROS Other: All systems not noted in ROS Statement are negative. Past Medical History Past Medical History: No Reported History Additional Past Medical History / Comment(s): Hep C History of Any Multi-Drug Resistant Organisms: MRSA Date of last positivie culture/infection: 12/19/15 MDRO Source:: right arm Past Surgical History: Cholecystectomy Past Psychological History: Bipolar, Depression Smoking Status: Current some day smoker Past Alcohol Use History: None Reported Past Drug Use History: None Reported General Exam Limitations: no limitations General appearance: alert, in no apparent distress Head exam: Present: atraumatic, normocephalic, normal inspection Eye exam: Present: normal appearance, PERRL, EOMI. Absent: scleral icterus, conjunctival injection, periorbital swelling ENT exam: Present: normal exam, mucous membranes moist. Absent: normal oropharynx (Patient has a cracked tooth 20) Expanded Teeth exam: Present: fractured tooth # (21) Neck exam: Present: normal inspection, full ROM. Absent: tenderness, meningismus, lymphadenopathy Respiratory exam: Present: normal lung sounds bilaterally Cardiovascular Exam: Present: regular rate, normal rhythm, normal heart sounds. Absent: systolic murmur, diastolic murmur, rubs, gallop, clicks Course Vital Signs 01/09/21 22:39 Temperature 98.3 F Pulse Rate 81 Respiratory 16 Rate Blood Pressure 166/123 O2 Sat by Pulse 100 Oximetry Medical Decision Making - Medical Decision Making Patient presents for dental pain. Patient does have a fractured tooth 21 with a dental Stacey. No abscess. No facial edema. No sublingual edema no fevers here in the ER. No drooling. Patient was given penicillin and Toradol. We will write her a small prescription of [place]. She will need to follow-up with her doctor. She will return for any worsening symptoms. Disposition Clinical Impression: Pain, dental Disposition: HOME SELF-CARE Condition: Good Instructions (If sedation given, give patient instructions): Toothache (ED) Additional Instructions: Please take antibiotic as directed. Take Motrin for pain. If pain severe. [place]. Follow-up with dentist. Return to the emergency room for any worsening symptoms. Prescriptions: HYDROcodone/APAP 5-325MG [[place] 5-325] 1 tab PO Q6HR PRN #10 tab PRN Reason: Pain Penicillin V Potassium [Pen Vee K] 500 mg PO Q6H 10 Days #40 tablet Is patient prescribed a controlled substance at d/c from ED?: Yes When asked, does pt state using other controlled substances?: No If prescribed controlled substance>3 days was MAPS reviewed?: Prescribed <3 Days If opioid is for acute pain is fill amount 7 days or less?: Yes If Rx opioid, was Start Talking consent form obtained?: Yes Referrals: Sajan Cosme MD [Primary Care Provider] - 1-2 days Time of Disposition: 22:58
[2021-01-09 23:12] VITALS: BP 156/111
[2021-01-09] MEDS ORDERED: HYDROcodone/APAP 5-325MG 1 EACH TAB PO STA (23:30)
== END 2021-01-09 23:38 | disposition home or self-care (01) ==
LOC: EC 22:31
DX: K08.89 Other specified disorders of teeth and supporting structures (principal); K02.9 Dental caries, unspecified; K03.81 Cracked tooth; F17.200 Nicotine dependence, unspecified, uncomplicated; Z88.5 Allergy status to narcotic agent; Z88.8 Allergy status to other drugs, medicaments and biological substances
CPT/HCPCS: 96372; 99283; J1885; 99284

== ENCOUNTER 2021-01-14 15:05 | Emergency (ER) | payer OTHER ==
[2021-01-14 15:44] VITALS: TEMP 98
[2021-01-14] MEDS ORDERED: HYDROmorphone 1 MG/ML 1 ML SYRINGE IVP STA ×2 (16:20→18:14)
[2021-01-14 17:06] LABS: Basophils % (A) 0 %; Eosinophils # (A) 0.1 k/uL (0-0.7); Eosinophils % (A) 1 %; HCT 44.4 % (34.0-46.0); HGB 15.6 gm/dL (11.4-16.0); Lymphocytes # (A) 2.9 k/uL (1.0-4.8); Lymphocytes % (A) 25 %; MCHC 35.1 g/dL (31.0-37.0); MCV 88.4 fL (80.0-100.0); Mean Platelet Volume 7.2; Monocytes # (A) 0.3 k/uL (0-1.0); Monocytes % (A) 3 %; Neutrophils # (A) 8.1 k/uL (1.3-7.7); Neutrophils % (A) 70 %; Platelet Count 277 k/uL (150-450); RBC 5.02 m/uL (3.80-5.40); RDW 12.1 % (11.5-15.5); WBC 11.5 k/uL (3.8-10.6)
[2021-01-14 17:21] LABS: ALT 48 U/L (4-34); AST 43 U/L (14-36); African American GFR (CKD) >90 (>60 ml/min/1.73 sqM); Albumin 4.5 g/dL (3.5-5.0); Alkaline Phosphatase 98 U/L (38-126); Anion Gap 10 mmol/L; Blood Urea Nitrogen 6 mg/dL (7-17); Calcium 9.7 mg/dL (8.4-10.2); Carbon Dioxide 21 mmol/L (22-30); Chloride 108 mmol/L (98-107); Glucose 98 mg/dL (74-99); Non-African American GFR(CKD) >90 (>60 ml/min/1.73 sqM); Potassium 4.6 mmol/L (3.5-5.1); Sodium 139 mmol/L (137-145); Total Bilirubin 0.3 mg/dL (0.2-1.3); Total Protein 7.7 g/dL (6.3-8.2)
--- NOTE | 2021-01-14 17:31 | CT ---
EXAMINATION TYPE: CT facial bones w con DATE OF EXAM: 01/14/2021 COMPARISON: None HISTORY: Left sided tooth and facial pain. CT DLP: 438 mGycm Automated exposure control for dose reduction was used. CONTRAST: Performed with IV Contrast, patient injected with 100 mL of Isovue 300. The mandibular ring is intact. Temporomandibular joints appear intact. The maxilla is intact. Zygomat ic arches appear normal. The nasal bone is intact. There is fairly normal development and aeration of the paranasal sinuses. The orbital margins are intact. There is no evidence of a blowout fracture. T here is no retro-orbital mass. I see no bony destructive process. I do not see any significant periodontal disease. IMPRESSION: Negative CT scan of the facial bones. No fracture. No evidence of osteomyelitis.
--- NOTE | 2021-01-14 18:11 | ED ---
ENT HPI - General Chief complaint: Dental/Oral Stated complaint: Tooth Infection/Pain Time Seen by Provider: 01/14/21 15:48 Source: patient, RN notes reviewed Mode of arrival: wheelchair Limitations: no limitations - History of Present Illness Initial comments: Patient is a 30-year-old female that presents to emergency room complaining of left upper jaw pain. She was seen approximately 1 week ago for the same complaint and was started on antibiotics for potential abscess. She notes that she was try to follow-up with her dentist but has since been unable to. Patient returns with continuing pain. She was in moderate amounts of motion all distres s. Patient denied any other symptoms or complaints. She denied any chest pain first breath headache nausea vomiting diarrhea constipation fever fatigue chills.. - Related Data Home Medications Medication Instructions Recorded Confirmed Epclusa(Unknown Dose) 1 tab PO DAILY 10/02/20 10/02/20 LORazepam 0.5 mg PO BID PRN 10/02/20 10/02/20 Norgestimate-Ethinyl Estradiol 1 tab PO HS 10/02/20 10/02/20 [Sprintec 28 Day Tablet] QUEtiapine FUMARATE [SEROquel] 25 mg PO HS 10/02/20 10/02/20 Vortioxetine Hydrobromide 20 mg PO HS 10/02/20 10/02/20 [Trintellix] Previous Rx's Medication Instructions Recorded HYDROcodone/APAP 5-325MG [[place] 1 tab PO Q6HR PRN #10 tab 01/09/21 5-325] Penicillin V Potassium [Pen Vee K] 500 mg PO Q6H 10 Days #40 tablet 01/09/21 Ibuprofen [Motrin] 800 mg PO Q6HR #30 tab 01/14/21 Allergies Allergy/AdvReac Type Severity Reaction Status Date / Time codeine AdvReac Nausea & Verified 01/14/21 15:45 Vomiting medroxyprogesterone AdvReac Nausea & Verified 01/14/21 15:45 [From Depo-Provera] Vomiting Review of Systems ROS Statement: Those systems with pertinent positive or pertinent negative responses have been documented in the HPI. ROS Other: All systems not noted in ROS Statement are negative. Past Medical History Past Medical History: No Reported History Additional Past Medical History / Comment(s): Hep C History of Any Multi-Drug Resistant Organisms: MRSA Date of last positivie culture/infection: 12/19/15 MDRO Source:: right arm Past Surgical History: Cholecystectomy Past Psychological History: Bipolar, Depression Smoking Status: Current some day smoker Past Alcohol Use History: None Reported Past Drug Use History: None Reported General Exam Limitations: no limitations General appearance: alert, in no apparent distress Head exam: Present: atraumatic, normocephalic, normal inspection Eye exam: Present: normal appearance, PERRL, EOMI. Absent: scleral icterus, conjunctival injection, periorbital swelling ENT exam: Present: normal exam, mucous membranes moist, other (Patient did note that it was painful to open her mouth, no unilateral swelling erythema noted.) Neck exam: Present: normal inspection. Absent: tenderness, lymphadenopathy Respiratory exam: Present: normal lung sounds bilaterally. Absent: respiratory distress, wheezes, rales, rhonchi, stridor Cardiovascular Exam: Present: regular rate, normal rhythm, normal heart sounds. Absent: systolic murmur, diastolic murmur, rubs, gallop, clicks Extremities exam: Present: normal inspection, full ROM, normal capillary refill. Absent: tenderness, pedal edema, joint swelling, calf tenderness Neurological exam: Present: alert, oriented X3 Psychiatric exam: Present: normal affect, normal mood Skin exam: Present: warm, dry, intact, normal color. Absent: rash Course Vital Signs 01/14/21 15:42 Temperature 98.0 F Pulse Rate 86 Respiratory 16 Rate Blood Pressure 150/95 O2 Sat by Pulse 98 Oximetry Medical Decision Making - Medical Decision Making 30-year-old female complaining of continuing left upper jaw pain. Labs, CT of the facial bones with contrast ordered. Labs unremarkable, mildly elevated white count at 11.5. CT negative for any osteomyelitis or acute process. Case discussed with Dr. Chakraborty, patient can discharge with close follow-up to dentist. - Lab Data Result diagrams: 01/14/21 16:51 01/14/21 16:51 Lab Results 01/14/21 01/14/21 Range/Units 16:51 16:51 WBC 11.5 H (3.8-10.6) k/uL RBC 5.02 (3.80-5.40) m/uL Hgb 15.6 (11.4-16.0) gm/dL Hct 44.4 (34.0-46.0) % MCV 88.4 (80.0-100.0) fL MCH 31.0 (25.0-35.0) pg MCHC 35.1 (31.0-37.0) g/dL RDW 12.1 (11.5-15.5) % Plt Count 277 (150-450) k/uL MPV 7.2 Neutrophils % 70 % Lymphocytes % 25 % Monocytes % 3 % Eosinophils % 1 % Basophils % 0 % Neutrophils # 8.1 H (1.3-7.7) k/uL Lymphocytes # 2.9 (1.0-4.8) k/uL Monocytes # 0.3 (0-1.0) k/uL Eosinophils # 0.1 (0-0.7) k/uL Basophils # 0.0 (0-0.2) k/uL Sodium 139 (137-145) mmol/L Potassium 4.6 (3.5-5.1) mmol/L Chloride 108 H (98-107) mmol/L Carbon Dioxide 21 L (22-30) mmol/L Anion Gap 10 mmol/L BUN 6 L (7-17) mg/dL Creatinine 0.45 L (0.52-1.04) mg/dL Est GFR (CKD-EPI)AfAm >90 (>60 ml/min/1.73 sqM) Est GFR (CKD-EPI)NonAf >90 (>60 ml/min/1.73 sqM) Glucose 98 (74-99) mg/dL Calcium 9.7 (8.4-10.2) mg/dL Total Bilirubin 0.3 (0.2-1.3) mg/dL AST 43 H (14-36) U/L ALT 48 H (4-34) U/L Alkaline Phosphatase 98 (38-126) U/L Total Protein 7.7 (6.3-8.2) g/dL Albumin 4.5 (3.5-5.0) g/dL - Radiology Data Radiology results: report reviewed, image reviewed CT of the facial bones: Negative computed tomography scan of the facial bones. No fracture. No evidence of osteomyelitis. Disposition Clinical Impression: Pain, dental Disposition: HOME SELF-CARE Condition: Stable Instructions (If sedation given, give patient instructions): Toothache (ED) Additional Instructions: Please return to the Emergency Department if symptoms worsen or any other concerns. Follow-up with primary care in the next several days to increase antibiotics and gets dentist referral if needed. Take Motrin as needed for pain control. Prescriptions: Ibuprofen [Motrin] 800 mg PO Q6HR #30 tab Is patient prescribed a controlled substance at d/c from ED?: No Referrals: Sajan Cosme MD [Primary Care Provider] - 1-2 days Time of Disposition: 18:11
[2021-01-14 18:15] LABS: Appearance,Urine Clear (Clear); Bilirubin,Urine Negative (Negative); Blood,Urine Negative (Negative); Color,Urine Light Yellow; Glucose,Urine (UA) Negative (Negative); Ketones,Urine Negative (Negative); Leukocyte Esterase,Urine Negative (Negative); Nitrite,Urine Negative (Negative); Protein,Urine Negative (Negative); Urobilinogen,Urine <2.0 mg/dL (<2.0)
[2021-01-14 18:16] LABS: Specific Gravity,Urine >1.050 (1.001-1.035)
[2021-01-14 18:34] VITALS: BP 153/105; PULSE 73; RESP 18
== END 2021-01-14 18:36 | disposition home or self-care (01) ==
LOC: EC 15:05
DX: K08.89 Other specified disorders of teeth and supporting structures (principal); F17.200 Nicotine dependence, unspecified, uncomplicated; Z88.5 Allergy status to narcotic agent; Z88.8 Allergy status to other drugs, medicaments and biological substances
CPT/HCPCS: 36415; 80053; 85025; 81003; 70487; 99284; 96374; 96376; J1170; Q9967

== ENCOUNTER 2021-05-14 18:15 | Emergency (ER) | payer OTHER ==
[2021-05-14 19:33] VITALS: PULSE 87; TEMP 97.5
--- NOTE | 2021-05-14 20:33 | ED ---
General Adult HPI - General Chief complaint: Vaginal Bleeding Stated complaint: 12 wks preg/vaginal bleeding Time Seen by Provider: 05/14/21 20:21 Source: patient, RN notes reviewed Mode of arrival: ambulatory - History of Present Illness Initial comments: 30-year-old female presents to the emergency room with complaints of vaginal bleeding since 5:30 this evening. Patient states that she is bleeding through a pad an hour. Describes the pain as cramping in nature. She is a . Her daughter is 6 years old and did step on her abdomen yesterday. She states that she did not develop the pain and bleeding until tonight. She does smoke a couple cigarettes a day. She is taking multivitamins. She does have a well- established [employer] [facility]. She states that she was recently diagnosed with urinary tract infection and has been on Macrobid, states has these 3 more days. Denies any fevers, nausea vomiting or diarrhea. -: hour(s) (3) Location: abdomen Radiation: non-radiation Severity scale (1-10): 7 Quality: other (cramping) Consistency: constant Improves with: none Worsens with: none Associated Symptoms: other (Vaginal bleeding) Treatments Prior to Arrival: none - Related Data Home Medications Medication Instructions Recorded Confirmed Epclusa(Unknown Dose) 1 tab PO DAILY 10/02/20 10/02/20 LORazepam 0.5 mg PO BID PRN 10/02/20 10/02/20 Norgestimate-Ethinyl Estradiol 1 tab PO HS 10/02/20 10/02/20 [Sprintec 28 Day Tablet] QUEtiapine FUMARATE [SEROquel] 25 mg PO HS 10/02/20 10/02/20 Vortioxetine Hydrobromide 20 mg PO HS 10/02/20 10/02/20 [Trintellix] Previous Rx's Medication Instructions Recorded HYDROcodone/APAP 5-325MG [[place] 1 tab PO Q6HR PRN #10 tab 01/09/21 5-325] Penicillin V Potassium [Pen Vee K] 500 mg PO Q6H 10 Days #40 tablet 01/09/21 Ibuprofen [Motrin] 800 mg PO Q6HR #30 tab 01/14/21 Allergies Allergy/AdvReac Type Severity Reaction Status Date / Time codeine AdvReac Nausea & Verified 05/14/21 19:34 Vomiting medroxyprogesterone AdvReac Nausea & Verified 05/14/21 19:34 [From Depo-Provera] Vomiting Review of Systems ROS Statement: Those systems with pertinent positive or pertinent negative responses have been documented in the HPI. ROS Other: All systems not noted in ROS Statement are negative. Past Medical History Past Medical History: No Reported History Additional Past Medical History / Comment(s): Hep C History of Any Multi-Drug Resistant Organisms: MRSA Date of last positivie culture/infection: 12/19/15 MDRO Source:: right arm Past Surgical History: Cholecystectomy Past Psychological History: Bipolar, Depression Smoking Status: Current some day smoker Past Alcohol Use History: None Reported Past Drug Use History: None Reported General Exam General appearance: alert, in no apparent distress Head exam: Present: atraumatic, normocephalic, normal inspection Eye exam: Present: normal appearance, EOMI. Absent: scleral icterus, conjunctival injection, periorbital swelling ENT exam: Present: normal exam, normal oropharynx, mucous membranes moist Neck exam: Present: normal inspection, full ROM. Absent: tenderness, meningismus, lymphadenopathy Respiratory exam: Present: normal lung sounds bilaterally. Absent: respiratory distress, wheezes, rales, rhonchi, stridor Cardiovascular Exam: Present: regular rate, normal rhythm, normal heart sounds. Absent: systolic murmur, diastolic murmur, rubs, gallop, clicks GI/Abdominal exam: Present: soft, tenderness, normal bowel sounds. Absent: distended, guarding, rebound, rigid External exam: Present: normal external exam. Absent: erythema, swelling, lesions, lacerations, ecchymosis Speculum exam: Present: vaginal bleeding, other (Cervical os is closed). Absent: foreign body, tissue, laceration By manual exam: Present: uterine enlargement. Absent: cervical motion tenderness, adnexal mass, uterine tenderness Extremities exam: Present: normal inspection, full ROM, normal capillary refill. Absent: tenderness, pedal edema, joint swelling, calf tenderness Back exam: Present: full ROM. Absent: tenderness, CVA tenderness (R), CVA tenderness (L) Neurological exam: Present: alert, oriented X3 Psychiatric exam: Present: normal affect, normal mood Skin exam: Present: warm, dry, intact, normal color. Absent: rash, cyanosis, diaphoretic Course Vital Signs 05/14/21 05/14/21 19:31 23:23 Temperature 97.5 F L Pulse Rate 87 Respiratory 19 18 Rate Blood Pressure 107/74 120/60 O2 Sat by Pulse 98 Oximetry Medical Decision Making - Medical Decision Making Transvaginal ultrasound shows a possible tiny subchorionic hemorrhage. Gestational age is 12 weeks and 3 days. Heart rate of 153. There is minimal amount of bleeding. Cervical os is closed. Her abdomen is soft. Hemoglobin is 14 and hematocrit is 40, there is no evidence of leukocytosis. Her beta Quant is 29,465. Vital signs are stable. She is currently on Macrobid for urinary tract infection. She is directed to follow up with her [employer]. She states that she has an appointment with her primary care doctor this week. She is also directed to return to the emergency room with a normal worsening pain or bleeding. She is directed to put nothing in the vagina and to have pelvic rest until cleared by [employer]. Patient is agreeable to this plan of care. Case discussed with Dr. Solano. - Lab Data Result diagrams: 05/14/21 20:50 05/14/21 20:50 Lab Results 05/14/21 05/14/21 05/14/21 Range/Units 20:50 20:50 20:50 WBC 10.4 (3.8-10.6) k/uL RBC 4.54 (3.80-5.40) m/uL Hgb 14.1 (11.4-16.0) gm/dL Hct 40.4 (34.0-46.0) % MCV 89.0 (80.0-100.0) fL MCH 31.0 (25.0-35.0) pg MCHC 34.8 (31.0-37.0) g/dL RDW 12.9 (11.5-15.5) % Plt Count 240 (150-450) k/uL MPV 7.5 Neutrophils % 68 % Lymphocytes % 27 % Monocytes % 3 % Eosinophils % 1 % Basophils % 0 % Neutrophils # 7.0 (1.3-7.7) k/uL Lymphocytes # 2.8 (1.0-4.8) k/uL Monocytes # 0.3 (0-1.0) k/uL Eosinophils # 0.1 (0-0.7) k/uL Basophils # 0.0 (0-0.2) k/uL Hyperchromasia Slight PT 9.7 (9.0-12.0) sec INR 0.9 (<1.2) Sodium 135 L (137-145) mmol/L Potassium 3.9 (3.5-5.1) mmol/L Chloride 105 (98-107) mmol/L Carbon Dioxide 19 L (22-30) mmol/L Anion Gap 11 mmol/L BUN 3 L (7-17) mg/dL Creatinine 0.37 L (0.52-1.04) mg/dL Est GFR (CKD-EPI)AfAm >90 (>60 ml/min/1.73 sqM) Est GFR (CKD-EPI)NonAf >90 (>60 ml/min/1.73 sqM) Glucose 85 (74-99) mg/dL Calcium 9.5 (8.4-10.2) mg/dL Total Bilirubin 0.4 (0.2-1.3) mg/dL AST 28 (14-36) U/L ALT 36 H (4-34) U/L Alkaline Phosphatase 75 (38-126) U/L Total Protein 7.5 (6.3-8.2) g/dL Albumin 4.3 (3.5-5.0) g/dL HCG, Quant 46136.2 mIU/mL Urine Color Urine Appearance (Clear) Urine pH (5.0-8.0) Ur Specific [place] (1.001-1.035) Urine Protein (Negative) Urine Glucose (UA) (Negative) Urine Ketones (Negative) Urine Blood (Negative) Urine Nitrite (Negative) Urine Bilirubin (Negative) Urine Urobilinogen (<2.0) mg/dL Ur Leukocyte Esterase (Negative) Urine RBC (0-5) /hpf Ur Squamous Epith Cells (0-4) /hpf Urine Bacteria (None) /hpf Urine Mucus (None) /hpf Blood Type Blood Type Recheck Bld Type Recheck Status 05/14/21 05/14/21 Range/Units 20:50 20:59 WBC (3.8-10.6) k/uL RBC (3.80-5.40) m/uL Hgb (11.4-16.0) gm/dL Hct (34.0-46.0) % MCV (80.0-100.0) fL MCH (25.0-35.0) pg MCHC (31.0-37.0) g/dL RDW (11.5-15.5) % Plt Count (150-450) k/uL MPV Neutrophils % % Lymphocytes % % Monocytes % % Eosinophils % % Basophils % % Neutrophils # (1.3-7.7) k/uL Lymphocytes # (1.0-4.8) k/uL Monocytes # (0-1.0) k/uL Eosinophils # (0-0.7) k/uL Basophils # (0-0.2) k/uL Hyperchromasia PT (9.0-12.0) sec INR (<1.2) Sodium (137-145) mmol/L Potassium (3.5-5.1) mmol/L Chloride (98-107) mmol/L Carbon Dioxide (22-30) mmol/L Anion Gap mmol/L BUN (7-17) mg/dL Creatinine (0.52-1.04) mg/dL Est GFR (CKD-EPI)AfAm (>60 ml/min/1.73 sqM) Est GFR (CKD-EPI)NonAf (>60 ml/min/1.73 sqM) Glucose (74-99) mg/dL Calcium (8.4-10.2) mg/dL Total Bilirubin (0.2-1.3) mg/dL AST (14-36) U/L ALT (4-34) U/L Alkaline Phosphatase (38-126) U/L Total Protein (6.3-8.2) g/dL Albumin (3.5-5.0) g/dL HCG, Quant mIU/mL Urine Color Yellow Urine Appearance Clear (Clear) Urine pH 6.5 (5.0-8.0) Ur Specific [place] 1.009 (1.001-1.035) Urine Protein Negative (Negative) Urine Glucose (UA) Negative (Negative) Urine Ketones 2+ H (Negative) Urine Blood Large H (Negative) Urine Nitrite Negative (Negative) Urine Bilirubin Negative (Negative) Urine Urobilinogen <2.0 (<2.0) mg/dL Ur Leukocyte Esterase Negative (Negative) Urine RBC 38 H (0-5) /hpf Ur Squamous Epith Cells <1 (0-4) /hpf Urine Bacteria Rare H (None) /hpf Urine Mucus Rare H (None) /hpf Blood Type B Positive Blood Type Recheck No Previous Record Bld Type Recheck Status [facility] ONLY Disposition Clinical Impression: Threatened in first trimester Disposition: HOME SELF-CARE Condition: Good Additional Instructions: Return to the emergency room with any new or worsening pain or bleeding. Vaginal rest, nothing in the vagina until seen by [employer]. Keep your appointment with the primary care doctor this week. Increase your fluid intake. Is patient prescribed a controlled substance at d/c from ED?: No Referrals: Sajan Cosme MD [Primary Care Provider] - 1-2 days Jarett Gambino MD [STAFF PHYSICIAN] - 1-2 days Time of Disposition: 23:20
[2021-05-14] MEDS ORDERED: SODIUM CHLORIDE 0.9% 500 ML 1,000 ML IV STA (20:34)
[2021-05-14] MEDS ORDERED: ACETAMINOPHEN TAB 325 MG TAB PO STA (20:35)
[2021-05-14 21:06] LABS: Basophils % (A) 0 %; Eosinophils # (A) 0.1 k/uL (0-0.7); Eosinophils % (A) 1 %; HCT 40.4 % (34.0-46.0); HGB 14.1 gm/dL (11.4-16.0); Hyperchromasia Slight; Lymphocytes # (A) 2.8 k/uL (1.0-4.8); Lymphocytes % (A) 27 %; MCHC 34.8 g/dL (31.0-37.0); Mean Platelet Volume 7.5; Monocytes # (A) 0.3 k/uL (0-1.0); Monocytes % (A) 3 %; Neutrophils % (A) 68 %; Platelet Count 240 k/uL (150-450); RBC 4.54 m/uL (3.80-5.40); RDW 12.9 % (11.5-15.5); WBC 10.4 k/uL (3.8-10.6)
[2021-05-14 21:17] LABS: ALT 36 U/L (4-34); AST 28 U/L (14-36); African American GFR (CKD) >90 (>60 ml/min/1.73 sqM); Albumin 4.3 g/dL (3.5-5.0); Alkaline Phosphatase 75 U/L (38-126); Anion Gap 11 mmol/L; Blood Urea Nitrogen 3 mg/dL (7-17); Calcium 9.5 mg/dL (8.4-10.2); Carbon Dioxide 19 mmol/L (22-30); Chloride 105 mmol/L (98-107); Glucose 85 mg/dL (74-99); Non-African American GFR(CKD) >90 (>60 ml/min/1.73 sqM); Potassium 3.9 mmol/L (3.5-5.1); Sodium 135 mmol/L (137-145); Total Bilirubin 0.4 mg/dL (0.2-1.3); Total Protein 7.5 g/dL (6.3-8.2)
[2021-05-14 21:18] LABS: Appearance,Urine Clear (Clear); Bacteria,Urine Rare /hpf; Bilirubin,Urine Negative (Negative); Blood,Urine Large (Negative); Color,Urine Yellow; Glucose,Urine (UA) Negative (Negative); Ketones,Urine 2+ (Negative); Leukocyte Esterase,Urine Negative (Negative); Mucus,Urine Rare /hpf; Nitrite,Urine Negative (Negative); PH, Urine 6.5 (5.0-8.0); Protein,Urine Negative (Negative); RBC,Urine 38 /hpf (0-5); Specific Gravity,Urine 1.009 (1.001-1.035); Squamous Epithelial Cell,Urine <1 /hpf (0-4); Urobilinogen,Urine <2.0 mg/dL (<2.0)
[2021-05-14 21:23] LABS: INR 0.9 (<1.2); Prothrombin Time 9.7 sec (9.0-12.0)
[2021-05-14 21:59] LABS: HCG,Quantitative Serum 29465.2 mIU/mL
--- NOTE | 2021-05-14 22:57 | US ---
EXAMINATION TYPE: Transabdominal DATE OF EXAM: 05/14/2021 10:29 PM COMPARISON: NONE CLINICAL HISTORY: vaginal bleeding 12 weeks preg. Vaginal bleeding. . EXAM PERFORMED: Transabdominal (TA) EXAM MEASUREMENTS: GESTATIONAL AGE / DATING Physician Established: (12 weeks/4 days) EDC: 11/22/2021 Dates by LMP: Unknown. Dates by First Scan: This is first scan. Dates by Current Scan for: (12 weeks/3 days) EDC: 11/23/2021 MATERNAL ANATOMY Uterus: 11.5 x 9.4 x 8.0 cm. Right Ovary: 3.3 x 1.5 x 2.0 cm. Left Ovary: 3.5 x 2.3 x 2.2 cm. Anechoic area seen: 2.7 x 2.1 x 1.9 cm. Post CDS / Adnexa: Appear wnl. Presence of free fluid: None seen. Presence of corpus luteal cyst: Possible within left ovary, anechoic area seen as mentioned above: 2. 7 x 2.1 x 1.9 cm. Presence of subchorionic bleed: Complex area seen adjacent to the gestational sac: 1.3 x 0.7 x 1.2 cm . GESTATION / SURVEY CRL: 5.89 cm. (12 weeks/3 days) Yolk Sac (normal less than 6mm): Not visualized. Heart Rate: 153 bpm Rhythm: Normal IUP: Viable IUP Nuchal Translucency 10-14wks (normal less than 3mm): Date of LMP: Unknown. Beta HcG (if available): pending IMPRESSION: Possible tiny subchorionic hemorrhage. Ultrasound gestational age is 12 weeks and 3 days.
[2021-05-14 23:24] VITALS: BP 120/60; RESP 18
== END 2021-05-14 23:41 | disposition home or self-care (01) ==
LOC: EC 18:15
DX: O20.0 Threatened abortion (principal); F17.200 Nicotine dependence, unspecified, uncomplicated; Z88.5 Allergy status to narcotic agent; Z88.8 Allergy status to other drugs, medicaments and biological substances; Z3A.12 12 weeks gestation of pregnancy
CPT/HCPCS: 36415; 76801; 80053; 81001; 84702; 85025; 85610; 86900; 86901; 96360; 99284

== ENCOUNTER 2021-10-05 15:19 | Emergency (ER) | payer OTHER ==
[2021-10-05 15:24] VITALS: BP 110/73; TEMP 98.2
[2021-10-05] MEDS ORDERED: ALBUTEROL NEBULIZED 2.5 MG/3 ML INHALATION STA (18:06)
--- NOTE | 2021-10-05 18:11 | ED ---
General Adult HPI - General Chief complaint: Upper Respiratory Infection Stated complaint: Lab recheck sent by PCP-32 weeks preg. Time Seen by Provider: 10/05/21 17:51 Source: patient Mode of arrival: ambulatory Limitations: no limitations - History of Present Illness Initial comments: Yoli is a 31-year-old female currently 32 weeks who presents to the emergency department today via private vehicle for further evaluation of shortness of breath. Patient reports that for the past couple of nights she's had a nonproductive cough and felt short of breath. She was seen in her primary care office and they did an x-ray which she was told looked like she may have an early pneumonia and prescribed her antibiotic however they were concerned that they could not rule out pulmonary embolism considering that she is therefore at risk to the advised to come the ER for evaluation. Patient states that she currently feels like she's had bronchitis in the past, in the past she has required breathing treatments for bronchitis. She is a former smoker but quit when she found out she was with this . - Related Data Home Medications Medication Instructions Recorded Confirmed Dht-Rbzs-Glhdg Acid 1 cap PO HS 10/05/21 10/05/21 [-U Capsule (formulary)] Allergies Allergy/AdvReac Type Severity Reaction Status Date / Time codeine AdvReac Nausea & Verified 10/05/21 19:50 Vomiting medroxyprogesterone AdvReac Nausea & Verified 10/05/21 19:50 [From Depo-Provera] Vomiting Review of Systems ROS Statement: Those systems with pertinent positive or pertinent negative responses have been documented in the HPI. ROS Other: All systems not noted in ROS Statement are negative. Past Medical History Past Medical History: No Reported History Additional Past Medical History / Comment(s): Hep C History of Any Multi-Drug Resistant Organisms: MRSA Date of last positivie culture/infection: 12/19/15 MDRO Source:: right arm Past Surgical History: Cholecystectomy Past Psychological History: Bipolar, Depression Smoking Status: Current some day smoker Past Alcohol Use History: None Reported Past Drug Use History: None Reported General Exam - General Exam Comments Initial Comments: Physical Exam GENERAL: Patient is well-developed and well-nourished. Patient is nontoxic and well- hydrated and is in no distress. HENT: Normocephalic, Atraumatic. EYES: PERRL, EOMI PULMONARY: Wheezing and right lower lung [place] CARDIOVASCULAR: There is a regular rate and rhythm without any murmurs gallops or rubs. There is no lower extremity edema ABDOMEN: Gravid abdomen SKIN: Skin is clear with no lesions or rashes and otherwise unremarkable. : Deferred NEUROLOGIC: Patient is alert and oriented x3. Moving all extremities spontaneously MUSCULOSKELETAL: Normal extremities with adequate strength and full range of motion. No lower extremity swelling or edema. No calf tenderness. PSYCHIATRIC: Normal psychiatric evaluation. Limitations: no limitations Course Vital Signs 10/05/21 10/05/21 10/05/21 15:22 18:32 18:39 Temperature 98.2 F Pulse Rate 102 H 77 78 Respiratory 20 16 16 Rate Blood Pressure 110/73 O2 Sat by Pulse 98 Oximetry Medical Decision Making - Medical Decision Making Patient was seen and evaluated history is obtained from the patient who states she was seen by primary care and x-ray was obtained she was told that she might have an early pneumonia and was prescribed an antibiotic. However was told that they could not rule out a PE. Patient has no unilateral leg swelling she has had intermittent swelling of both feet throughout the entire but currently doesn't have any swelling. She is not a smoker. No family history of blood clots. Patient has no pleuritic chest pain and states she feels like she has bronchitis. Risks and benefits of CT scanning were discussed with the patient, I advised the patient we could start with ultrasound of the lower extremities to evaluate for DVT, and for DVT is present we'll place her on anticoagulation and she will not require a computed tomography scan of the chest, if scan is negative for DVTs she isn't even lower risk for pulmonary embolism and we can again address whether or not she needs a computed tomography scan. Patient would like to avoid CT scanning if at all possible and would prefer to have a breathing treatment and ultrasound of the legs. Shunt was negative for DVT, upon reevaluation patient reports she is feeling much better, she does feel that she has bronchitis she does not want a CT scan at this time. I do feel with shared decision making that this is a very appropriate choice. Close return parameters were discussed and the patient was discharged home in stable condition Disposition Clinical Impression: Cough Disposition: HOME SELF-CARE Condition: Stable Additional Instructions: Take antibiotics as prescribed Take tylenol if you develop fever Follow up with OB for re-evaluation Return to the ER if you develop worsening shortness of breath, chest pain, lightheadedness or any new or concerning symptoms. Is patient prescribed a controlled substance at d/c from ED?: No Referrals: Sajan Cosme MD [Primary Care Provider] - 1-2 days
[2021-10-05 18:35] VITALS: RESP 16
[2021-10-05 18:40] VITALS: PULSE 78
--- NOTE | 2021-10-05 19:26 | US ---
EXAMINATION TYPE: US venous doppler duplex LE BI DATE OF EXAM: 10/05/2021 6:07 PM COMPARISON: NONE CLINICAL HISTORY: , edema, concern for PE. No redness. No swelling. SOB. 32 weeks . SIDE PERFORMED: Bilateral TECHNIQUE: The lower extremity deep venous system is examined utilizing real time linear array sonog torey with graded compression, doppler sonography and color-flow sonography. VESSELS IMAGED: Common Femoral Vein Deep Femoral Vein Greater Saphenous Vein * Femoral Vein Popliteal Vein Small Saphenous Vein * Proximal Calf Veins (* superficial vessels) Right Leg: Negative for DVT Left Leg: Negative for DVT IMPRESSION: No evidence of deep vein thrombosis in both legs.
== END 2021-10-05 20:14 | disposition home or self-care (01) ==
LOC: EC 15:19
DX: O26.893 Other specified pregnancy related conditions, third trimester (principal); F17.200 Nicotine dependence, unspecified, uncomplicated; Z88.5 Allergy status to narcotic agent; Z88.7 Allergy status to serum and vaccine; Z3A.32 32 weeks gestation of pregnancy
CPT/HCPCS: 93970; 94640; 99283

== ENCOUNTER 2021-10-18 15:48 | Outpatient (CLI) | payer OTHER ==
[2021-10-18 16:43] VITALS: BP 121/77; PULSE 98; RESP 17; TEMP 97
--- NOTE | 2021-11-24 11:49 | P.MSEPDOC ---
Presenting Problems - Arrival Data Date of Arrival on Unit: 10/18/21 Time of Arrival on Unit: 15:48 Mode of Transport: Ambulatory - Complaint OB-Reason for Admission/Chief Complaint: Rule Out PROM, Pain, NST Comment: pt presents to triage for possible leaking, decreased movement, and back and abd pain Medical History - Information : 2 Para: 1 Term: 1 : 0 Abortions: Spontaneous or Elective: 0 Number of Living Children: 1 - Gestational Age Gestational Age by JONNY (wks/days): 35 Weeks and 0 Days - History Complications: GDM Review of Systems - Review of Systems Constitutional: No problems Breast: No problems ENT: No problems Cardiovascular: No problems Respiratory: No problems Gastrointestinal: No problems Genitourinary: No problems Musculoskeletal: No problems Neurological: No problems Skin: No problems Vital Signs - Temperature Temperature: 97.0 F Temperature Source: Temporal Artery Scan - Pulse Right Brachial Pulse Rate: 98 Pulse Assessment Method: Automatic Cuff - Respirations Respiratory Rate: 17 Oxygen Delivery Method: Room Air - Blood Pressure Right Arm Blood Pressure: 121/77 Blood Pressure Mean: 91 Blood Pressure Source: Automatic Cuff Medical Screen Scoring - Cervical Exam Dilation (cm): 1 Membranes: Intact - Uterine Contractions Frequency From (mins): 0 - Assessment - Baby A Baseline FHR: 145 Heart Rate - NICHD Category: Category I (Normal) Physician Notification - Physician Notified Physician Notified Date: 10/18/21 Physician Notified Time: 16:20 Physician: Jarett Gambino New Order Received: Yes - Notification Comment Comment: Reactive nst, amniosure negative, cervical exam, 1cm/thick/-3, discharge pt home, she has appt on Fri with Dr. Gambino Maternal Triage Index - Maternal Triage Index Presenting for scheduled procedure w/no complaint: No - Stat/Priority 1 Stat Priority 1: No - Urgent/Priority 2 Urgent Priority 2: Yes Provider Notified: Jarett Gambino Provider Notified Time: 16:20 Criteria Met for Priority 2: 35 weeks GA, possible leaking fluid, decreased movement, abd and back pain Disposition - Disposition OB Disposition: Triage, Discharge to home, Written follow up instructions reviewed Discharge Date: 10/18/21 Discharge Time: 16:35 I agree with the RN Medical Screening Exam: Yes Physician's MSE Comment: I have neither seen nor examined the patient. Case reviewed; plan agreed upon as documented in EMR&OBIX.: Yes Diagnosis: RELATED CONDITIONS, UNSPECIFIED, THIRD TRIMESTER
== END 2021-10-18 16:35 | disposition home or self-care (01) ==
LOC: FBPOP 15:48
PROVIDERS: ATTEND Obstetrics & Gynecology
DX: O26.93 Pregnancy related conditions, unspecified, third trimester (principal); Z3A.35 35 weeks gestation of pregnancy
CPT/HCPCS: 59025; 84112; G0463; 99213

== ENCOUNTER 2022-08-13 09:58 | Emergency (ER) | payer OTHER ==
--- NOTE | 2022-08-13 11:03 | ED ---
General Adult HPI - General Source: patient Mode of arrival: ambulatory Limitations: no limitations <Vandana Epps - Last Filed: 08/13/22 10:59> - General Source: patient, RN notes reviewed, old records reviewed <Leonard Sosa - Last Filed: 08/13/22 15:50> - General Chief complaint: Chest Pain Stated complaint: chest pain Time Seen by Provider: 08/13/22 10:59 - History of Present Illness Initial comments: 31 year old female presents to the emergency department with a chief complaint of dizziness, diaphoresis and chest pain that has been constant, and at rest since this morning. She denies the chest pain being worse with movement. She describes the pain as both dull ache, and sharp stabbing. (Vandana Epps) Patient is a 31-year-old female with unremarkable past medical history presents with Department complaining of 2-3 days of substernal chest discomfort, some shortness of breath, headache, feeling of ill. Has a mild cough as well. Congestion. No known sick contacts. He endorses an episode nausea. No emesis or diarrhea. Denies current headache. Denies being . Is in today because she is uncertain what is causing his symptoms. Presents for further evaluation. No history of blood clots. No lower extremity swelling. Not on blood thinners. Patient was evaluated in the waiting room, and they didn't have dizziness as well as diaphoresis earlier. She states there was not as much diaphoresis, but does say feeling lightheaded when she stood up. This self resolved. The main reason she is here his chest discomfort is substernal in nature and worse with movement and reproducible on palpation. . (Leonard Sosa) - Related Data Home Medications Medication Instructions Recorded Confirmed Multivitamins, Thera [Multivitamin 1 tab PO HS 08/13/22 08/13/22 (formulary)] Vortioxetine Hydrobromide 20 mg PO HS 08/13/22 08/13/22 [Trintellix] norgestimate-ethinyl estradioL 1 tab PO HS 08/13/22 08/13/22 [Sprintec 28 Day Tablet] Allergies Allergy/AdvReac Type Severity Reaction Status Date / Time codeine AdvReac Nausea & Verified 08/13/22 12:42 Vomiting medroxyprogesterone AdvReac Nausea & Verified 08/13/22 12:42 [From Depo-Provera] Vomiting Review of Systems ROS Other: All systems not noted in ROS Statement are negative. <SupriyaVandana - Last Filed: 08/13/22 10:59> ROS Other: All systems not noted in ROS Statement are negative. <Leonard Sosa - Last Filed: 08/13/22 15:50> ROS Statement: Those systems with pertinent positive or pertinent negative responses have been documented in the HPI. Review of Systems: CONST: Denies fever EYES: Denies blurry vision ENT: Denies nasal congestion C/V: Endorses chest pain RESP: Denies shortness of breath GI: Denies abdominal pain : Denies dysuria SKIN: Denies rash. MSK: Denies joint pain. NEURO: Denies headache (Leonard Sosa) Past Medical History Past Medical History: No Reported History Additional Past Medical History / Comment(s): Hep C History of Any Multi-Drug Resistant Organisms: MRSA Date of last positivie culture/infection: 12/19/15 MDRO Source:: right arm Past Surgical History: Cholecystectomy Past Psychological History: Bipolar, Depression Smoking Status: Former smoker Past Alcohol Use History: None Reported Past Drug Use History: None Reported - Past Family History Mother Family Medical History: Hypertension <KaileeurbanelisaVandana - Last Filed: 08/13/22 10:59> General Exam Limitations: no limitations <Vandana Epps - Last Filed: 08/13/22 10:59> <Leonard Sosa - Last Filed: 08/13/22 15:50> - General Exam Comments Initial Comments: General: Appears in no acute distress. HEAD: Normal with no signs of head trauma. EYES: PERRLA, EOMI, conjunctiva normal, no discharge. ENT: Hearing grossly intact, normal oropharynx. RESPIRATORY: Clear breath sounds bilaterally. No wheezes, rales, or rhonchi. C/V: Regular rate and rhythm. S1 and S2 auscultated, no edema, peripheral pulses 2+ and intact throughout. Chest pain is reproducible on palpation of the sternum. ABD: Abd is soft, nontender, nondistended EXT: Normal range of motion, no obvious deformity SKIN: No rashes or lesions observed on exposed skin. NEURO: Alert and oriented 4. (Leonard Sosa) Course Vital Signs 08/13/22 08/13/22 08/13/22 10:01 12:06 13:50 Temperature 98 F Pulse Rate 78 86 Pulse Rate [ 56 L Surgical Elastic Knitter Hand Frame ] Respiratory 22 18 Rate Blood Pressure 135/90 103/65 O2 Sat by Pulse 100 98 Oximetry 08/13/22 14:23 Temperature 97.9 F Pulse Rate 67 Pulse Rate [ Surgical Elastic Knitter Hand Frame ] Respiratory 16 Rate Blood Pressure 112/73 O2 Sat by Pulse 98 Oximetry Medical Decision Making - Lab Data Result diagrams: 08/13/22 12:02 08/13/22 12:02 - EKG Data -: EKG Interpreted by Me <Leonard Sosa - Last Filed: 08/13/22 15:50> - Medical Decision Making Based on the patient's presentation and physical exam, I'm concerned for possible cardiopulmonary etiology for her current symptoms. She does have a reproducible chest wall pain. I low suspicion but we will screen for a PE, as well as cardiac labs. Pain has been there for over a day. We also obtained viral swabs assisted be infectious in nature. She was in agreement this plan. She'll be given symptomatic treatment with an aspirin, as well as IV Toradol we will trial small dose of Ativan and she has a history of panic disorders. She was in agreement this plan. Vital signs within acceptable limits. EKG showed no signs of ischemia. Chest x-ray revealed no acute cardiopulmonary process. Laboratory studies are remarkable for a d-dimer that was within normal limits. Troponin is undetectable. Patient's is viral swabs are within acceptable limits. Remainder of the labs are within acceptable limits. On reevaluation, patient's chest pain and symptoms are improved. We did discuss her workup. I believe she likely has a viral syndrome as well as chest wall pain is reproducible on palpation has been present for multiple days. Cardiac workup was unremarkable. Heart scores low at 1. I did discuss with her her workup, I believe it is safe for her to be discharged home with follow-up. She was in agreement this plan. Strict return precautions were discussed. I instructed the patient to follow up with their PCP in the next 1-3 days. I explained that the patient should return to the emergency department if they experience any worsening symptoms. Strict return precautions were discussed with the patient. The patient expressed understanding of these instructions. I answered all questions that the patient had. The patient was discharged home in good condition with their prescriptions and follow up information. Was pt. sent in by a medical professional or institution (, PA, HOT DIP PLATING SUPERVISOR, urgent care, hospital, or fpc...) When possible be specific @ -No Did you speak to anyone other than the patient for history (EMS, parent, family, police, friend...)? What history was obtained from this source @ -No Did you review nursing and triage notes (agree or disagree)? Why? @ -I reviewed and agree with nursing and triage notes Were old charts reviewed (outside hosp., previous admission, EMS record, old EKG , old radiological studies, urgent care reports/EKG's, fpc records)? Report findings @ -Yes prior EKG was reviewed from September 2021. Differential Diagnosis (chest pain, altered mental status, abdominal pain women, abdominal pain men, vaginal bleeding, weakness, fever, dyspnea, syncope, headache, dizziness, GI bleed, back pain, seizure, CVA, palpatations, mental health)? @ -Differential Chest Pain: Stable Angina, Unstable Angina, STEMI, NSTEMI Aortic Dissection, Pneumothorax, Musculoskeletal, Esophageal Spasm GERD, Cholecystitis, Pancreatitis, Zoster, this is not meant to be an all-inclusive list. EKG interpreted by me (3pts min.). @ -As above X-rays interpreted by me (1pt min.). @ -Chest x-ray reveals no acute cardiopulmonary process. CT interpreted by me (1pt min.). @ -None done U/S interpreted by me (1pt. min.). @ -None done What testing was considered but not performed or refused? (CT, X-rays, U/S, labs)? Why? @ -None What meds were considered but not given or refused? Why? @ -None Did you discuss the management of the patient with other professionals (professionals i.e. , PA, HOT DIP PLATING SUPERVISOR, lab, RT, psych nurse, elementary school social worker, slate splitter, teacher, police liaison officer, case therapist)? Give summary @ -No Was smoking cessation discussed for >3mins.? @ -No Was critical care preformed (if so, how long)? @ -No Were there social determinants of health that impacted care today? How? (Homelessness, low income, unemployed, alcoholism, drug addiction, t ransportation, low edu. Level, literacy, decrease access to med. care, prison, rehab)? @ -No Was there de-escalation of care discussed even if they declined (Discuss DNR or withdrawal of care, Hospice)? DNR status @ -No What co-morbidities impacted this encounter? (DM, HTN, Smoking, COPD, CAD, Cancer, CVA, ARF, Chemo, Hep., AIDS, mental health diagnosis, sleep apnea, morbid obesity)? @ -None Was patient admitted / discharged? Hospital course, mention meds given and route, prescriptions, significant lab abnormalities, going to OR and other pertinent info. @ -Discharged home. See above for emergency Department course. Undiagnosed new problem with uncertain prognosis? @ -No Drug Therapy requiring intensive monitoring for toxicity (Heparin, Nitro, Insulin, Cardizem)? @ -No Were any procedures done? @ -No Diagnosis/symptom? @ -Chest wall pain Acute, or Chronic, or Acute on Chronic? @ -Acute Uncomplicated (without systemic symptoms) or Complicated (systemic symptoms)? @ -Uncomplicated Side effects of treatment? @ -No Exacerbation, Progression, or Severe Exacerbation? @ -No Poses a threat to life or bodily function? How? (Chest pain, [place], NH, pneumonia, PE, COPD, DKA, ARF, appy, cholecystitis, CVA, Diverticulitis, Homicidal, Suicida l, threat to staff... and all critical care pts) @ -No Diagnosis/symptom? @ -Lightheaded Acute, or Chronic, or Acute on Chronic? @ -Acute Uncomplicated (without systemic symptoms) or Complicated (systemic symptoms)? @ -Uncomplicated Side effects of treatment? @ -none Exacerbation, Progression, or Severe Exacerbation] @ -no Poses a threat to life or bodily function? @ -no (Leonard Soas) - Lab Data Lab Results 08/13/22 08/13/22 08/13/22 Range/Units 12:02 12:02 12:02 WBC 8.5 (3.8-10.6) k/uL RBC 4.39 (3.80-5.40) m/uL Hgb 13.6 (11.4-16.0) gm/dL Hct 39.3 (34.0-46.0) % MCV 89.5 (80.0-100.0) fL MCH 31.1 (25.0-35.0) pg MCHC 34.7 (31.0-37.0) g/dL RDW 12.7 (11.5-15.5) % Plt Count 233 (150-450) k/uL MPV 7.5 Neutrophils % 57 % Lymphocytes % 37 % Monocytes % 4 % Eosinophils % 1 % Basophils % 0 % Neutrophils # 4.8 (1.3-7.7) k/uL Lymphocytes # 3.1 (1.0-4.8) k/uL Monocytes # 0.3 (0-1.0) k/uL Eosinophils # 0.1 (0-0.7) k/uL Basophils # 0.0 (0-0.2) k/uL PT (9.0-12.0) sec INR (<1.2) APTT (22.0-30.0) sec D-Dimer (<0.60) mg/L FEU Sodium 138 (137-145) mmol/L Potassium 4.1 (3.5-5.1) mmol/L Chloride 108 H (98-107) mmol/L Carbon Dioxide 25 (22-30) mmol/L Anion Gap 5 mmol/L BUN 9 (7-17) mg/dL Creatinine 0.61 (0.52-1.04) mg/dL Est GFR (CKD-EPI)AfAm >90 (>60 ml/min/1.73 sqM) Est GFR (CKD-EPI)NonAf >90 (>60 ml/min/1.73 sqM) Glucose 93 (74-99) mg/dL Calcium 8.8 (8.4-10.2) mg/dL Total Bilirubin 0.3 (0.2-1.3) mg/dL AST 18 (14-36) U/L ALT 23 (4-34) U/L Alkaline Phosphatase 64 (38-126) U/L Troponin I <0.012 (0.000-0.034) ng/mL Total Protein 7.3 (6.3-8.2) g/dL Albumin 4.1 (3.5-5.0) g/dL Influenza Type A (PCR) (Not Detectd) Influenza Type B (PCR) (Not Detectd) RSV (PCR) (Not Detectd) SARS-CoV-2 (PCR) (Not Detectd) 01/24/23 01/24/23 Range/Units 12:02 12:02 WBC (3.8-10.6) k/uL RBC (3.80-5.40) m/uL Hgb (11.4-16.0) gm/dL Hct (34.0-46.0) % MCV (80.0-100.0) fL MCH (25.0-35.0) pg MCHC (31.0-37.0) g/dL RDW (11.5-15.5) % Plt Count (150-450) k/uL MPV Neutrophils % % Lymphocytes % % Monocytes % % Eosinophils % % Basophils % % Neutrophils # (1.3-7.7) k/uL Lymphocytes # (1.0-4.8) k/uL Monocytes # (0-1.0) k/uL Eosinophils # (0-0.7) k/uL Basophils # (0-0.2) k/uL PT 9.6 (9.0-12.0) sec INR 0.9 (<1.2) APTT 23.5 (22.0-30.0) sec D-Dimer 0.43 (<0.60) mg/L FEU Sodium (137-145) mmol/L Potassium (3.5-5.1) mmol/L Chloride (98-107) mmol/L Carbon Dioxide (22-30) mmol/L Anion Gap mmol/L BUN (7-17) mg/dL Creatinine (0.52-1.04) mg/dL Est GFR (CKD-EPI)AfAm (>60 ml/min/1.73 sqM) Est GFR (CKD-EPI)NonAf (>60 ml/min/1.73 sqM) Glucose (74-99) mg/dL Calcium (8.4-10.2) mg/dL Total Bilirubin (0.2-1.3) mg/dL AST (14-36) U/L ALT (4-34) U/L Alkaline Phosphatase (38-126) U/L Troponin I (0.000-0.034) ng/mL Total Protein (6.3-8.2) g/dL Albumin (3.5-5.0) g/dL Influenza Type A (PCR) Not Detected (Not Detectd) Influenza Type B (PCR) Not Detected (Not Detectd) RSV (PCR) Not Detected (Not Detectd) SARS-CoV-2 (PCR) Not Detected (Not Detectd) - EKG Data EKG Comments: 12-lead Electrocardiogram Interpretation Note EKG was reviewed and interpreted by myself. 12-lead ECG performed at 1009 is interpreted by me as revealing normal sinus rhythm at a rate of 66 beats per minute. [place] is normal. IA interval is 137 ms, QRS duration is 90 ms QTC is 407 ms. There were no ST or T wave abnormalities to suggest myocardial ischemia or injury. R wave progression across the precordium was satisfactory. By my interpretation this EKG is non-diagnostic for acute ischemia. When compared with EKG from September 2021, no significant change. Isolated T-wave inversions seen in III on prior EKG has resolved. 12-lead Electrocardiogram Interpretation Note EKG was reviewed and interpreted by myself. 12-lead ECG performed at 1150 is interpreted by me as revealing normal sinus rhythm at a rate of 58 beats per minute. [place] is normal. IA interval is 140 ms, QRS duration is 95 ms, QTc is 417 ms.. There were no ST or T wave abnormalities to suggest myocardial ischemia or injury. R wave progression across the precordium was satisfactory. By my interpretation this EKG is non-diagnostic for acute ischemia. When compared with EKG obtained earlier, no significant change. (Leonard Sosa) Disposition <Vandana Epps - Last Filed: 08/13/22 10:59> Is patient prescribed a controlled substance at d/c from ED?: No Time of Disposition: 14:00 <Leonard Sosa - Last Filed: 08/13/22 15:50> Clinical Impression: Chest wall pain, Lightheaded Disposition: HOME SELF-CARE Condition: Good Instructions (If sedation given, give patient instructions): Chest Pain (ED) Referrals: Sajan Cosme MD [Primary Care Provider] - 1-2 days
[2022-08-13] MEDS ORDERED: LORazepam 0.5 MG TAB PO STA (11:52)
[2022-08-13] MEDS ORDERED: ASPIRIN 81 MG PO STA (11:52)
[2022-08-13] MEDS ORDERED: KETOROLAC 15 MG/ML 1 ML VIAL IVP STA (11:52)
[2022-08-13 12:23] LABS: Basophils % (A) 0 %; Eosinophils # (A) 0.1 k/uL (0-0.7); Eosinophils % (A) 1 %; HCT 39.3 % (34.0-46.0); HGB 13.6 gm/dL (11.4-16.0); Lymphocytes # (A) 3.1 k/uL (1.0-4.8); Lymphocytes % (A) 37 %; MCH 31.1 pg (25.0-35.0); MCHC 34.7 g/dL (31.0-37.0); MCV 89.5 fL (80.0-100.0); Mean Platelet Volume 7.5; Monocytes # (A) 0.3 k/uL (0-1.0); Monocytes % (A) 4 %; Neutrophils # (A) 4.8 k/uL (1.3-7.7); Neutrophils % (A) 57 %; Platelet Count 233 k/uL (150-450); RBC 4.39 m/uL (3.80-5.40); RDW 12.7 % (11.5-15.5); WBC 8.5 k/uL (3.8-10.6)
[2022-08-13 12:34] LABS: ALT 23 U/L (4-34); AST 18 U/L (14-36); African American GFR (CKD) >90 (>60 ml/min/1.73 sqM); Albumin 4.1 g/dL (3.5-5.0); Alkaline Phosphatase 64 U/L (38-126); Anion Gap 5 mmol/L; Blood Urea Nitrogen 9 mg/dL (7-17); Calcium 8.8 mg/dL (8.4-10.2); Carbon Dioxide 25 mmol/L (22-30); Chloride 108 mmol/L (98-107); Glucose 93 mg/dL (74-99); Non-African American GFR(CKD) >90 (>60 ml/min/1.73 sqM); Potassium 4.1 mmol/L (3.5-5.1); Sodium 138 mmol/L (137-145); Total Bilirubin 0.3 mg/dL (0.2-1.3); Total Protein 7.3 g/dL (6.3-8.2)
--- NOTE | 2022-08-13 12:36 | XR ---
EXAMINATION TYPE: XR chest 2V DATE OF EXAM: 08/13/2022 COMPARISON: 10/08/2021 HISTORY: Chest pain TECHNIQUE: Frontal and lateral views of the chest are obtained. FINDINGS: There is no focal air space opacity, pleural effusion, or pneumothorax seen. The cardiac silhouette size is within normal limits. The osseous structures are intact. IMPRESSION: No acute cardiopulmonary process.
[2022-08-13 12:48] LABS: INR 0.9 (<1.2); Partial Thromboplastin Time 23.5 sec (22.0-30.0); Prothrombin Time 9.6 sec (9.0-12.0)
[2022-08-13 14:25] VITALS: BP 112/73; PULSE 67; RESP 16; TEMP 97.9
== END 2022-08-13 14:34 | disposition home or self-care (01) ==
LOC: EC 09:58
DX: R07.89 Other chest pain (principal); R42 Dizziness and giddiness; F31.9 Bipolar disorder, unspecified; Z87.891 Personal history of nicotine dependence; Z88.5 Allergy status to narcotic agent; Z88.7 Allergy status to serum and vaccine; Z20.822 Contact with and (suspected) exposure to COVID-19
CPT/HCPCS: 36415; 93005; 85379; 80053; 84484; 85025; 85610; 85730; 87636; 71046; 99285; 96374; J1885

== ENCOUNTER 2023-02-09 17:03 | Observation (INO) | payer OTHER ==
[2023-02-09] MEDS ORDERED: SODIUM CHLORIDE 0.9% 1,000 ML IV ONE (17:41)
[2023-02-09] MEDS ORDERED: KETOROLAC 15 MG/ML 1 ML VIAL IVP STA (17:41)
[2023-02-09] MEDS ORDERED: fentaNYL (PF) 50 MCG/ML 2 ML AMP IVP STA ×2 (17:43→21:07)
--- NOTE | 2023-02-09 18:05 | XR ---
EXAMINATION TYPE: XR chest 2V DATE OF EXAM: 02/09/2023 6:01 PM COMPARISON: Chest radiographs from 08/13/2022 TECHNIQUE: XR chest 2V Frontal and lateral views of the chest. CLINICAL INDICATION:Female, 32 years old with history of CP; FINDINGS: Lungs/Pleura: There is no evidence of pleural effusion, focal consolidation, or pneumothorax. Pulmonary vascularity: Unremarkable. Heart/mediastinum: Cardiomediastinal silhouette is unremarkable. Musculoskeletal: No acute osseous pathology. IMPRESSION: No acute cardiopulmonary disease/process.
[2023-02-09 18:15] LABS: Appearance,Urine Cloudy (Clear); Bacteria,Urine Rare /hpf; Bilirubin,Urine Negative (Negative); Blood,Urine Negative (Negative); Color,Urine Light Yellow; Glucose,Urine (UA) Negative (Negative); Ketones,Urine Negative (Negative); Leukocyte Esterase,Urine Trace (Negative); Nitrite,Urine Negative (Negative); Protein,Urine Negative (Negative); RBC,Urine <1 /hpf (0-5); Specific Gravity,Urine 1.005 (1.001-1.035); Squamous Epithelial Cell,Urine 8 /hpf (0-4); Urobilinogen,Urine <2.0 mg/dL (<2.0); WBC,Urine 2 /hpf (0-5)
[2023-02-09 18:19] LABS: ALT 35 U/L (4-34); AST 26 U/L (14-36); African American GFR (CKD) >90 (>60 ml/min/1.73 sqM); Albumin 4.3 g/dL (3.5-5.0); Alkaline Phosphatase 95 U/L (38-126); Anion Gap 9 mmol/L; Blood Urea Nitrogen 7 mg/dL (7-17); Calcium 9.3 mg/dL (8.4-10.2); Carbon Dioxide 22 mmol/L (22-30); Chloride 107 mmol/L (98-107); Glucose 90 mg/dL (74-99); Lipase 116 U/L (23-300); Magnesium 1.9 mg/dL (1.6-2.3); Non-African American GFR(CKD) >90 (>60 ml/min/1.73 sqM); Potassium 4.2 mmol/L (3.5-5.1); Sodium 138 mmol/L (137-145); Total Bilirubin 0.5 mg/dL (0.2-1.3); Total Protein 7.9 g/dL (6.3-8.2)
[2023-02-09 18:26] LABS: Basophils % (A) 0 %; Eosinophils # (A) 0.1 k/uL (0-0.7); Eosinophils % (A) 1 %; HCT 41.7 % (34.0-46.0); HGB 14.7 gm/dL (11.4-16.0); Lymphocytes # (A) 3.2 k/uL (1.0-4.8); Lymphocytes % (A) 27 %; MCH 32.5 pg (25.0-35.0); MCHC 35.1 g/dL (31.0-37.0); MCV 92.6 fL (80.0-100.0); Monocytes # (A) 0.6 k/uL (0-1.0); Monocytes % (A) 5 %; Neutrophils # (A) 7.9 k/uL (1.3-7.7); Neutrophils % (A) 66 %; Platelet Count 276 k/uL (150-450); RBC 4.51 m/uL (3.80-5.40)
[2023-02-09 18:27] LABS: INR 0.9 (<1.2); Partial Thromboplastin Time 23.2 sec (22.0-30.0); Prothrombin Time 9.4 sec (9.0-12.0)
--- NOTE | 2023-02-09 19:00 | ED ---
General Adult HPI - General Chief complaint: Shortness of Breath Stated complaint: recheck Time Seen by Provider: 02/09/23 17:08 Source: patient Mode of arrival: ambulatory Limitations: no limitations - History of Present Illness Initial comments: This is a 31-year-old female with a past medical history including bipolar disorder presents emergency department after being sent in from urgent care to rule out a blood clot in her lungs. The patient stated that she had severe pain on the right posterior flank that his been started since 3:30 in the morning. The patient stated that it is worse with deep inspiration or movement and my evaluation was in significant distress secondary to pain. The patient stated that she denied have any shortness of breath but stated that every time she took a deep breath, it hurt over the right flank. The patient denied any radiation. The patient stated that she was camping when it became acutely worse overnight. The patient denied any other acute pain or complaints including any lightheadedness or dizziness. - Related Data Home Medications Medication Instructions Recorded Confirmed Vortioxetine Hydrobromide 20 mg PO HS 08/13/22 02/09/23 [Trintellix] norgestimate-ethinyl estradioL 1 tab PO HS 08/13/22 02/09/23 [Sprintec 28 Day Tablet] lamoTRIgine [LaMICtal] 100 mg PO DIRECTED 02/09/23 02/09/23 Allergies Allergy/AdvReac Type Severity Reaction Status Date / Time codeine AdvReac Nausea & Verified 02/09/23 19:46 Vomiting medroxyprogesterone AdvReac Nausea & Verified 02/09/23 19:46 [From Depo-Provera] Vomiting Review of Systems ROS Statement: Those systems with pertinent positive or pertinent negative responses have been documented in the HPI. ROS Other: All systems not noted in ROS Statement are negative. Past Medical History Past Medical History: No Reported History Additional Past Medical History / Comment(s): Hep C History of Any Multi-Drug Resistant Organisms: MRSA Date of last positivie culture/infection: 12/19/15 MDRO Source:: right arm Past Surgical History: Cholecystectomy Past Psychological History: Bipolar, Depression Smoking Status: Current every day smoker Past Alcohol Use History: Occasional Past Drug Use History: Marijuana - Past Family History Mother Family Medical History: Hypertension General Exam Limitations: no limitations General appearance: alert, in distress (2/2 right sided posterior flank pain) Head exam: Present: atraumatic, normocephalic, normal inspection Eye exam: Present: normal appearance, PERRL Pupils: Present: normal accommodation ENT exam: Present: normal exam, normal oropharynx, mucous membranes moist Neck exam: Present: normal inspection, full ROM Respiratory exam: Present: normal lung sounds bilaterally. Absent: chest wall tenderness Cardiovascular Exam: Present: regular rate, normal rhythm, normal heart sounds GI/Abdominal exam: Present: soft, normal bowel sounds Extremities exam: Present: normal inspection, full ROM Back exam: Present: normal inspection, full ROM. Absent: CVA tenderness (R), CVA tenderness (L) Neurological exam: Present: alert, oriented X3, CN II-XII intact Psychiatric exam: Present: normal affect, normal mood Skin exam: Present: warm, dry Course Vital Signs 02/09/23 02/09/23 02/09/23 17:03 17:29 18:47 Temperature 98.5 F Pulse Rate 88 78 59 L Respiratory 24 30 H 20 Rate Blood Pressure 132/84 111/67 O2 Sat by Pulse 100 98 Oximetry 02/09/23 20:00 Temperature Pulse Rate 90 Respiratory 18 Rate Blood Pressure 149/108 O2 Sat by Pulse 95 Oximetry EKG Findings - EKG Comments: EKG Findings:: An EKG was obtained and was interpreted by myself showing a rate of 77, NE interval 144, QRS duration 97 and QTC of 396. This EKG showed a normal sinus rhythm with no ST segment elevation or depression noted. Medical Decision Making - Medical Decision Making Was pt. sent in by a medical professional or institution (, PA, PROGRAMMER DEVELOPER, urgent care, hospital, or skilled nursing...) When possible be specific @ -Yes, urgent care to rule out PE Did you speak to anyone other than the patient for history (EMS, parent, family, police, friend...)? What history was obtained from this source @ -No Did you review nursing and triage notes (agree or disagree)? Why? @ -I reviewed and agree with nursing and triage notes Were old charts reviewed (outside hosp., previous admission, EMS record, old EKG, old radiological studies, urgent care reports/EKG's, skilled nursing records)? Report findings @ -No old charts were reviewed Differential Diagnosis (chest pain, altered mental status, abdominal pain women, abdominal pain men, vaginal bleeding, weakness, fever, dyspnea, syncope, headache, dizziness, GI bleed, back pain, seizure, CVA, palpatations, mental health)? @ -Pulmonary embolism, chest wall muscle strain, kidney stone EKG interpreted by me (3pts min.). @ -As above X-rays interpreted by me (1pt min.). @ -X-ray was obtained and was interpreted by myself showing no acute process. CT interpreted by me (1pt min.). @ -CTA of the chest was obtained and was interpreted by myself showing a right lower lung pulmonary emboli with wedge-shaped opacity suggesting pulmonary infarcts. There was no evidence of right heart strain. U/S interpreted by me (1pt. min.). @ -None done What testing was considered but not performed or refused? (CT, X-rays, U/S, labs)? Why? @ -None What meds were considered but not given or refused? Why? @ -None Did you discuss the management of the patient with other professionals (professionals i.e. , PA, PROGRAMMER DEVELOPER, lab, RT, psych nurse, social sciences lecturer, logging equipment operator, teacher, medical information officer, patient case manager)? Give summary @ -Yes, I spoke with Dr. Gutierres regarding the PE findings and he did recommend continuation of care without any need for higher level of care. The admitting physician was also contacted regarding admission. Was smoking cessation discussed for >3mins.? @ -No Was critical care preformed (if so, how long)? @ -No Were there social determinants of health that impacted care today? How? (Homelessness, low income, unemployed, alcoholism, drug addiction, transportation, low edu. Level, literacy, decrease access to med. care, longterm, rehab)? @ -No Was there de-escalation of care discussed even if they declined (Discuss DNR or withdrawal of care, Hospice)? DNR status @ -No What co-morbidities impacted this encounter? (DM, HTN, Smoking, COPD, CAD, Cancer, CVA, ARF, Chemo, Hep., AIDS, mental health diagnosis, sleep apnea, morbid obesity)? @ -None Was patient admitted / discharged? Hospital course, mention meds given and route, prescriptions, significant lab abnormalities, going to OR and other pertinent info. @ -The patient was seen and evaluated in emergency department. On physical exam, the patient was in bed with moderate pain and discomfort secondary to right sided rib pain. Vital signs admission were within normal limits however the patient was tachypneic. Laboratory workup was significant for an elevated d-dimer therefore CT of the chest was obtained. CTA showed home in emboli with wedge-shaped opacity suggesting pulmonary infarcts. Due to this, Dr. Gutierres was called and he did recommend continued therapy with heparin. The patient denied of any right heart strain therefore EKOS was not consult at this time. The admitting physician was contacted and accepted the patient for admission. The patient was understanding of these results and was admitted in stable condition. Undiagnosed new problem with uncertain prognosis? @ -No Drug Therapy requiring intensive monitoring for toxicity (Heparin, Nitro, Insulin, Cardizem)? @ -Heparin Were any procedures done? @ -No Diagnosis/symptom? @ -Pulmonary emboli with pulmonary infarcts Acute, or Chronic, or Acute on Chronic? @ -Acute Uncomplicated (without systemic symptoms) or Complicated (systemic symptoms)? @ -Complicated Side effects of treatment? @ -No Exacerbation, Progression, or Severe Exacerbation? @ -No Poses a threat to life or bodily function? How? (Chest pain, [place], [place], pneumonia, PE, COPD, DKA, ARF, appy, cholecystitis, CVA, Diverticulitis, Homicidal, Suicidal, threat to staff... and all critical care pts) @ -Yes, continued pulmonary emboli with infarcts can lead to worsening v entilation and continued damage and possible . - Lab Data Result diagrams: 02/09/23 17:46 02/09/23 17:46 Lab Results 02/09/23 02/09/23 02/09/23 Range/Units 17:46 17:46 17:46 WBC 12.0 H (3.8-10.6) k/uL RBC 4.51 (3.80-5.40) m/uL Hgb 14.7 (11.4-16.0) gm/dL Hct 41.7 (34.0-46.0) % MCV 92.6 (80.0-100.0) fL MCH 32.5 (25.0-35.0) pg MCHC 35.1 (31.0-37.0) g/dL RDW 13.0 (11.5-15.5) % Plt Count 276 (150-450) k/uL MPV 8.0 Neutrophils % 66 % Lymphocytes % 27 % Monocytes % 5 % Eosinophils % 1 % Basophils % 0 % Neutrophils # 7.9 H (1.3-7.7) k/uL Lymphocytes # 3.2 (1.0-4.8) k/uL Monocytes # 0.6 (0-1.0) k/uL Eosinophils # 0.1 (0-0.7) k/uL Basophils # 0.0 (0-0.2) k/uL PT 9.4 (9.0-12.0) sec INR 0.9 (<1.2) APTT 23.2 (22.0-30.0) sec D-Dimer 1.56 H (<0.60) mg/L FEU Sodium (137-145) mmol/L Potassium (3.5-5.1) mmol/L Chloride (98-107) mmol/L Carbon Dioxide (22-30) mmol/L Anion Gap mmol/L BUN (7-17) mg/dL Creatinine (0.52-1.04) mg/dL Est GFR (CKD-EPI)AfAm (>60 ml/min/1.73 sqM) Est GFR (CKD-EPI)NonAf (>60 ml/min/1.73 sqM) Glucose (74-99) mg/dL Calcium (8.4-10.2) mg/dL Magnesium (1.6-2.3) mg/dL Total Bilirubin (0.2-1.3) mg/dL AST (14-36) U/L ALT (4-34) U/L Alkaline Phosphatase (38-126) U/L Troponin I (0.000-0.034) ng/mL Total Protein (6.3-8.2) g/dL Albumin (3.5-5.0) g/dL Lipase (23-300) U/L Urine Color Light Yellow Urine Appearance Cloudy H (Clear) Urine pH 7.0 (5.0-8.0) Ur Specific [place] 1.005 (1.001-1.035) Urine Protein Negative (Negative) Urine Glucose (UA) Negative (Negative) Urine Ketones Negative (Negative) Urine Blood Negative (Negative) Urine Nitrite Negative (Negative) Urine Bilirubin Negative (Negative) Urine Urobilinogen <2.0 (<2.0) mg/dL Ur Leukocyte Esterase Trace H (Negative) Urine RBC <1 (0-5) /hpf Urine WBC 2 (0-5) /hpf Ur Squamous Epith Cells 8 H (0-4) /hpf Urine Bacteria Rare H (None) /hpf 02/09/23 02/09/23 Range/Units 17:46 17:46 WBC (3.8-10.6) k/uL RBC (3.80-5.40) m/uL Hgb (11.4-16.0) gm/dL Hct (34.0-46.0) % MCV (80.0-100.0) fL MCH (25.0-35.0) pg MCHC (31.0-37.0) g/dL RDW (11.5-15.5) % Plt Count (150-450) k/uL MPV Neutrophils % % Lymphocytes % % Monocytes % % Eosinophils % % Basophils % % Neutrophils # (1.3-7.7) k/uL Lymphocytes # (1.0-4.8) k/uL Monocytes # (0-1.0) k/uL Eosinophils # (0-0.7) k/uL Basophils # (0-0.2) k/uL PT (9.0-12.0) sec INR (<1.2) APTT (22.0-30.0) sec D-Dimer (<0.60) mg/L FEU Sodium 138 (137-145) mmol/L Potassium 4.2 (3.5-5.1) mmol/L Chloride 107 (98-107) mmol/L Carbon Dioxide 22 (22-30) mmol/L Anion Gap 9 mmol/L BUN 7 (7-17) mg/dL Creatinine 0.55 (0.52-1.04) mg/dL Est GFR (CKD-EPI)AfAm >90 (>60 ml/min/1.73 sqM) Est GFR (CKD-EPI)NonAf >90 (>60 ml/min/1.73 sqM) Glucose 90 (74-99) mg/dL Calcium 9.3 (8.4-10.2) mg/dL Magnesium 1.9 (1.6-2.3) mg/dL Total Bilirubin 0.5 (0.2-1.3) mg/dL AST 26 (14-36) U/L ALT 35 H (4-34) U/L Alkaline Phosphatase 95 (38-126) U/L Troponin I <0.012 (0.000-0.034) ng/mL Total Protein 7.9 (6.3-8.2) g/dL Albumin 4.3 (3.5-5.0) g/dL Lipase 116 (23-300) U/L Urine Color Urine Appearance (Clear) Urine pH (5.0-8.0) Ur Specific [place] (1.001-1.035) Urine Protein (Negative) Urine Glucose (UA) (Negative) Urine Ketones (Negative) Urine Blood (Negative) Urine Nitrite (Negative) Urine Bilirubin (Negative) Urine Urobilinogen (<2.0) mg/dL Ur Leukocyte Esterase (Negative) Urine RBC (0-5) /hpf Urine WBC (0-5) /hpf Ur Squamous Epith Cells (0-4) /hpf Urine Bacteria (None) /hpf Disposition Clinical Impression: Pulmonary embolism, Pulmonary infarct Disposition: ADMITTED IP TO THIS [facility] Condition: Stable Is patient prescribed a controlled substance at d/c from ED?: No Time of Disposition: 19:30 Decision to Admit Reason: Admit from EC Decision Date: 02/09/23 Decision Time: 19:30
--- NOTE | 2023-02-09 19:35 | CT ---
EXAMINATION TYPE: CT angio chest CT DLP: 433.9 mGycm, Automated exposure control for dose reduction was used. DATE OF EXAM: 02/09/2023 7:13 PM COMPARISON: Chest radiograph from same day. CLINICAL INDICATION:Female, 32 years old with history of Positive dimer, r/o PE; chest pain TECHNIQUE/CONTRAST: CTA scan of the thorax is performed with IV Contrast, patient injected with 85cc mL of Isovue 370, pu lmonary embolism protocol. MIP images are created and reviewed these are created on a separate works tation.. FINDINGS: Pulmonary Artery: Filling defect within the right lower lung segmental and subsegmental branches. Str ain. The pulmonary artery is of normal size. Lungs/Pleura: Few wedge-shaped opacities in the distribution of the pulmonary emboli in the right low er lobe. No evidence of additional focal consolidation, pleural effusion or pneumothorax. Airway: Large airways are patent. Heart: Heart is within normal limits for size. Vasculature: No evidence of aortic aneurysm. Mediastinum: No gross evidence of adenopathy. Musculoskeletal: No acute osseous abnormalities Soft Tissues: Unremarkable. Lower neck: No significant findings. Upper Abdomen: Diffuse low-attenuation to the liver parenchyma.. IMPRESSION: Right lower lung pulmonary emboli with wedge-shaped opacities suggesting pulmonary infarct. No eviden ce of right heart strain. Findings communicated to Dr. Percy Dalal MD on 02/09/2023 7:[address] Gallito England.
[2023-02-09] MEDS ORDERED: HEPARIN SODIUM 1,000 UN/ML (10ML VL) IV PRN (19:39)
[2023-02-09] MEDS ORDERED: HEPARIN SODIUM 1,000 UN/ML (10ML VL) IV ONE (19:39)
[2023-02-09] MEDS ORDERED: NALOXONE 0.4 MG/ML 1 ML VIAL IV PRN (19:44)
[2023-02-09] MEDS ORDERED: HEPARIN SOD,PORK IN 0.45% NACL 25,000 UNIT in 0.45% NACL 1 250ML.BAG IV SCH (19:45)
--- NOTE | 2023-02-09 21:55 | XR ---
EXAMINATION TYPE: XR chest 1V portable DATE OF EXAM: 02/09/2023 9:47 PM COMPARISON: Chest radiographs from 02/09/2023 70 TECHNIQUE: XR chest 1V portable Frontal view of the chest. CLINICAL INDICATION:Female, 32 years old with history of Increased SOB; FINDINGS: Lungs/Pleura: There is no evidence of pleural effusion, focal consolidation, or pneumothorax. Pulmonary vascularity: Unremarkable. Heart/mediastinum: Cardiomediastinal silhouette is unremarkable. Musculoskeletal: No acute osseous pathology. IMPRESSION: No change from prior, No acute cardiopulmonary disease/process.
--- NOTE | 2023-02-10 04:18 | P.CNPUL ---
History of Present Illness Consult date: 02/10/23 Requesting physician: Percy Dalal Reason for consult: pulmonary embolism Chief complaint: Right lateral/posterior chest pain History of present illness: I am seeing this patient in new consultation today 02/10/2023 for a small right lower lung pulmonary emboli and possible pulmonary infarct. Patient is a 32-year-old white female with past medical history significant for bipolar and hepatitis C. Patient reports right lateral/posterior flank pain that started yesterday at 3:30 in the morning. She did originally go to urgent care, and was directed to the emergency room to rule out PE. CTA on arrival showed a multiple small subsegmental right lower lung pulmonary emboli with a wedge-shaped opacity suggesting pulmonary infarct. No CT evidence of right heart strain. He is currently sitting up in bed, on room air, in no acute distress. Chest pain is likely pleuritic, and increases with deep breathing or movement. It is non- radiating. No significant shortness of breath. No hemoptysis. Also reports some left calf pain about on week ago. No unilateral leg swelling. She was taking an estrogen containing oral contraceptive. She also smokes 1 pack per day. No personal history of thrombosis, recent surgery, or prolonged travel. She does have a family history significant for blood clots. Her sister and father both have history of DVTs. Patient has been started on high intensity heparin per protocol. CBC and CMP on arrival were fairly unremarkable. UA was not significant for urinary tract infection. Pain is fairly well-controlled with current regimen. No significant hemodynamic instability. Patient will be monitored on the cardiac stepdown unit. Review of Systems REVIEW OF SYSTEMS: CONSTITUTIONAL: Denies any recent significant weight loss or weight gain. EYES: Denies change in vision. EARS, NOSE, MOUTH, THROAT: Denies headaches, denies sore throat. CARDIOVASCULAR: Denies chest pain, palpitations or syncopal episodes. RESPIRATORY: Denies shortness of breath, cough, congestion or hemoptysis. GASTROINTESTINAL: Denies change in appetite, abdominal pain, nausea and vomiting, or diarrhea GENITOURINARY: Denies hematuria, denies infections. MUSKULOSKELETAL: Denies pain, denies swelling. INTEGUMENTARY: Denies rash, denies eczema. NEUROLOGICAL: Denies recent memory loss, no recent seizure activity. PSYCHIATRIC: Denies anxiety, denies depression. HEMATOLOGIC/LYMPHATIC: Denies anemia, denies enlarged lymph node Past Medical History Past Medical History: No Reported History Additional Past Medical History / Comment(s): Hep C History of Any Multi-Drug Resistant Organisms: MRSA Date of last positivie culture/infection: 12/19/15 MDRO Source:: right arm Past Surgical History: Cholecystectomy Past Anesthesia/Blood Transfusion Reactions: No Reported Reaction Past Psychological History: Bipolar, Depression Smoking Status: Current every day smoker Past Alcohol Use History: Occasional Past Drug Use History: Marijuana - Past Family History Mother Family Medical History: Cancer, Diabetes Mellitus, Hypertension Father Family Medical History: Hyperlipidemia, Hypertension Additional Family Medical History / Comment(s): states her dad has had a blood clot before but unsure where Medications and Allergies Home Medications Medication Instructions Recorded Confirmed Type Vortioxetine Hydrobromide 20 mg PO HS 08/13/22 02/09/23 History [Trintellix] norgestimate-ethinyl estradioL 1 tab PO HS 08/13/22 02/09/23 History [Sprintec 28 Day Tablet] lamoTRIgine [LaMICtal] 100 mg PO DIRECTED 02/09/23 02/09/23 History Allergies Allergy/AdvReac Type Severity Reaction Status Date / Time codeine AdvReac Nausea & Verified 02/09/23 19:46 Vomiting medroxyprogesterone AdvReac Nausea & Verified 02/09/23 19:46 [From Depo-Provera] Vomiting Physical Exam Vitals: Vital Signs Temp Pulse Pulse Resp BP BP Pulse Ox 02/10/23 00:24 97.8 F 56 L 18 115/73 99 02/10/23 00:05 98.0 F 02/10/23 00:00 54 L 16 97/55 94 L 02/09/23 20:00 90 18 149/108 95 02/09/23 18:47 59 L 20 111/67 98 02/09/23 17:29 78 30 H 02/09/23 17:03 98.5 F 88 24 132/84 100 Intake and Output 02/09/23 02/09/23 02/10/23 14:59 22:59 06:59 Other: Weight 94.347 kg 94.347 kg GENERAL EXAM: Alert, 32-year-old white female, comfortable in no apparent distress. HEAD: Normocephalic and atraumatic EYES: Normal reaction of pupils, equal size. NOSE: Clear with pink turbinates. THROAT: No erythema or exudates. NECK: No masses, no JVD. CHEST: No chest wall deformity. LUNGS: Equal air entry with no crackles, wheeze, rhonchi or dullness. On room air. No conversational dyspnea or accessory muscle use.. CVS: S1 and S2 normal with no audible murmur, regular rhythm. No extra heart sounds ABDOMEN: No hepatosplenomegaly, active bowel sounds, no guarding or rigidity. SPINE: No scoliosis or deformity SKIN: No rashes CENTRAL NERVOUS SYSTEM: No focal deficits, tone is normal in all 4 extremities. EXTREMITIES: No significant redness or swelling. Negative Homans sign. There is no peripheral edema, clubbing, or cyanosis. Peripheral pulses are intact. Results - Laboratory Findings CBC and BMP: 02/09/23 17:46 02/09/23 17:46 PT/INR, D-dimer PT 9.4 sec (9.0-12.0) 02/09/23 17:46 INR 0.9 (<1.2) 02/09/23 17:46 D-Dimer 1.56 mg/L FEU (<0.60) H 02/09/23 17:46 Abnormal lab findings: Abnormal Labs 02/09/23 02/09/23 02/09/23 17:46 17:46 17:46 WBC 12.0 H Neutrophils # 7.9 H D-Dimer 1.56 H ALT Urine Appearance Cloudy H Ur Leukocyte Esterase Trace H Ur Squamous Epith Cells 8 H Urine Bacteria Rare H 02/09/23 17:46 WBC Neutrophils # D-Dimer ALT 35 H Urine Appearance Ur Leukocyte Esterase Ur Squamous Epith Cells Urine Bacteria - Diagnostic Findings Chest x-ray: image reviewed CT scan - chest: image reviewed Assessment and Plan Assessment: Multiple small subsegmental pulmonary emboli within the right lower lung, with a wedge shaped opacity suggesting pulmonary infarct. No CT evidence of right heart strain. Bipolar Chronic nicotine dependence Plan: Patient's medications, labs, chest x-ray, chest CTA were reviewed On room air Continue high-intensity heparin per protocol Will likely switch to DOAC in the next 24-48 hours. Echocardiogram pending for the morning Obtain ultrasound of the lower extremities Counseled on the need to switch to an estrogen free control method. I presented multiple different alternatives. She will discuss this with her OB- SQL PROGRAMMER. Smoking cessation counseling performed Nicotine replacement offered Pain seems well-controlled on current regimen We will continue to follow I have personally seen and examined the patient, performed the documentation and the assessment and plan as written. Number of minutes spent on the visit:20 Time with Patient: Greater than 30
[2023-02-10 05:29] LABS: HCT 36.1 % (34.0-46.0); HGB 12.1 gm/dL (11.4-16.0); MCH 31.9 pg (25.0-35.0); MCHC 33.5 g/dL (31.0-37.0); MCV 95.2 fL (80.0-100.0); Mean Platelet Volume 8.7; Platelet Count 196 k/uL (150-450); RBC 3.79 m/uL (3.80-5.40); RDW 12.7 % (11.5-15.5); WBC 10.2 k/uL (3.8-10.6)
[2023-02-10] MEDS: MORPHINE SULFATE 4 MG/ML SYRINGE IVP PRN ×4 (05:32→19:30)
[2023-02-10] MEDS ORDERED: IBUPROFEN 600 MG TAB PO PRN (05:55)
--- NOTE | 2023-02-10 07:43 | US ---
EXAMINATION TYPE: US venous doppler duplex LE DATE OF EXAM: 02/10/2023 7:37 AM COMPARISON: NONE CLINICAL INDICATION: Female, 32 years old with history of rule out DVTs; PE. In IV heparin. No leg redness or swelling. SIDE PERFORMED: Bilateral TECHNIQUE: The lower extremity deep venous system is examined utilizing real time linear array sonog torey with graded compression, doppler sonography and color-flow sonography. VESSELS IMAGED: Common Femoral Vein Deep Femoral Vein Greater Saphenous Vein * Femoral Vein Popliteal Vein Small Saphenous Vein * Proximal Calf Veins (* superficial vessels) Right Leg: Negative for DVT Left Leg: Negative for DVT IMPRESSION: Grayscale, color doppler, spectral doppler imaging performed of the deep veins of the lo wer extremities. There is normal flow, compressibility, vascular waveforms.
[2023-02-10] MEDS: NICOTINE 21MG/24HR PATCH TRANSDERM SCH (08:39)
[2023-02-10] MEDS: APIXABAN 5 MG TAB PO SCH ×2 (10:25→21:02)
--- NOTE | 2023-02-10 12:16 | P.HPIM ---
History of Present Illness Patient is a 32-year-old female with the history of smoking and on oral contraceptive pills came in with some symptoms of pleuritic chest pain found to have a small subsegmental PE, without any residual blood clots in the bilateral lower extremity venous Doppler. Patient has slight chest pain troponins are negative echocardiac exam is pending. Patient was transitioned to request today which is covered by insurance. Patient is not hypoxic. Patient is clinically stable REVIEW OF SYSTEMS: CONSTITUTIONAL: No fever, no malaise, no fatigue. HEENT: No recent visual problems or hearing problems. Denied any sore throat. CARDIOVASCULAR: No orthopnea, PND, no palpitations, no syncope. PULMONARY: No shortness of breath, no cough, no hemoptysis. GASTROINTESTINAL: No diarrhea, no nausea, no vomiting, no abdominal pain. NEUROLOGICAL: No headaches, no weakness, no numbness. HEMATOLOGICAL: Denies any bleeding or petechiae. GENITOURINARY: Denies any burning micturition, frequency, or urgency. MUSCULOSKELETAL/RHEUMATOLOGICAL: Denies any joint pain, swelling, or any muscle pain. ENDOCRINE: Denies any polyuria or polydipsia. The rest of the 14-point review of systems is negative. PHYSICAL EXAMINATION: GENERAL: The patient is alert and oriented x3, not in any acute distress. Well developed, well nourished. HEENT: Pupils are round and equally reacting to light. EOMI. No scleral icterus. No conjunctival pallor. Normocephalic, atraumatic. No pharyngeal erythema. No thyromegaly. CARDIOVASCULAR: S1 and S2 present. No murmurs, rubs, or gallops. PULMONARY: Chest is clear to auscultation, no wheezing or crackles. ABDOMEN: Soft, nontender, nondistended, normoactive bowel sounds. No palpable organomegaly. MUSCULOSKELETAL: No joint swelling or deformity. EXTREMITIES: No cyanosis, clubbing, or pedal edema. NEUROLOGICAL: Gross neurological examination did not reveal any focal deficits. SKIN: No rashes. Assessment and plan -Subsegmental bilateral pulmonary embolism: Secondary to oral contraceptive pil ls and smoking will need 3-6 months of anticoagulation after discontinuation of smoking and OC pills. If echocardiogram doesn't show any right ventricular strain patient will be discharged on oral anticoagulation. -History of hepatitis C: Follow-up with gastroenterology as an outpatient -Nicotine use: Counseling was provided patient will quit smoking. -Bipolar/depression If the echocardiogram doesn't show any right ventricular strain patient will be discharged today Past Medical History Past Medical History: No Reported History Additional Past Medical History / Comment(s): Hep C History of Any Multi-Drug Resistant Organisms: MRSA Date of last positivie culture/infection: 12/19/15 MDRO Source:: right arm Past Surgical History: Cholecystectomy Past Anesthesia/Blood Transfusion Reactions: No Reported Reaction Past Psychological History: Bipolar, Depression Smoking Status: Current every day smoker Past Alcohol Use History: Occasional Past Drug Use History: Marijuana - Past Family History Mother Family Medical History: Cancer, Diabetes Mellitus, Hypertension Father Family Medical History: Hyperlipidemia, Hypertension Additional Family Medical History / Comment(s): states her dad has had a blood clot before but unsure where Medications and Allergies Home Medications Medication Instructions Recorded Confirmed Type Vortioxetine Hydrobromide 20 mg PO HS 08/13/22 02/09/23 History [Trintellix] lamoTRIgine [LaMICtal] 100 mg PO DIRECTED 02/09/23 02/09/23 History Apixaban [Eliquis Starter Pack 5 - 10 mg PO DIRECTED 30 Days 02/10/23 Rx (for VTE)] #1 each Allergies Allergy/AdvReac Type Severity Reaction Status Date / Time codeine AdvReac Nausea & Verified 02/09/23 19:46 Vomiting medroxyprogesterone AdvReac Nausea & Verified 02/09/23 19:46 [From Depo-Provera] Vomiting Physical Exam Vitals: Vital Signs Temp Pulse Pulse Resp BP BP BP 02/10/23 12:00 98.2 F 73 18 116/81 02/10/23 09:51 16 02/10/23 08:00 97.7 F 63 16 100/69 02/10/23 03:55 98.0 F 61 18 111/73 02/10/23 00:24 97.8 F 56 L 18 115/73 02/10/23 00:05 98.0 F 02/10/23 00:00 54 L 16 97/55 02/09/23 20:00 90 18 149/108 02/09/23 18:47 59 L 20 111/67 02/09/23 17:29 78 30 H 02/09/23 17:03 98.5 F 88 24 132/84 Pulse Ox 02/10/23 12:00 99 02/10/23 09:51 02/10/23 08:00 97 02/10/23 03:55 96 02/10/23 00:24 99 02/10/23 00:05 02/10/23 00:00 94 L 02/09/23 20:00 95 02/09/23 18:47 98 02/09/23 17:29 02/09/23 17:03 100 Intake and Output 02/09/23 02/10/23 02/10/23 22:59 06:59 14:59 Intake Total 120 Balance 120 Intake: Oral 120 Other: # Voids 1 Weight 94.347 kg 94.347 kg Results CBC & Chem 7: 02/10/23 02:37 02/09/23 17:46 Labs: Abnormal Lab Results - Last 24 Hours (Table) 02/09/23 02/09/23 02/09/23 Range/Units 17:46 17:46 17:46 WBC 12.0 H (3.8-10.6) k/uL RBC (3.80-5.40) m/uL Neutrophils # 7.9 H (1.3-7.7) k/uL APTT (22.0-30.0) sec D-Dimer 1.56 H (<0.60) mg/L FEU ALT (4-34) U/L Urine Appearance Cloudy H (Clear) Ur Leukocyte Esterase Trace H (Negative) Ur Squamous Epith Cells 8 H (0-4) /hpf Urine Bacteria Rare H (None) /hpf 02/09/23 02/10/23 02/10/23 Range/Units 17:46 02:37 02:37 WBC (3.8-10.6) k/uL RBC 3.79 L (3.80-5.40) m/uL Neutrophils # (1.3-7.7) k/uL APTT 67.6 H (22.0-30.0) sec D-Dimer (<0.60) mg/L FEU ALT 35 H (4-34) U/L Urine Appearance (Clear) Ur Leukocyte Esterase (Negative) Ur Squamous Epith Cells (0-4) /hpf Urine Bacteria (None) /hpf Thrombosis Risk Factor Assmnt - Choose All That Apply Any of the Below Risk Factors Present?: Yes Each Factor Represents 1 point: Obesity (BMI >25), Oral contraceptives or hormone replacement therapy Each Risk Factor Represents 3 Points: Family history of DVT/PE Thrombosis Risk Factor Assessment Total Risk Factor Score: 5 Thrombosis Risk Factor Assessment Level: High Risk
--- NOTE | 2023-02-10 12:17 | P.DS ---
Providers Date of admission: 02/09/23 19:44 Attending physician: Trudi Humphrey MD Consults: 02/09/23 19:44 Consult Physician Routine Consulting Provider: Jayla Gutierres Consult Reason/Comments: PE with pulmonary infarcts Do you want consulting provider notified?: Already Contacted Primary care physician: Sajan Cosme MD Hospital Course: Patient is a 32-year-old female with the history of smoking and on oral contraceptive pills came in with some symptoms of pleuritic chest pain found to have a small subsegmental PE, without any residual blood clots in the bilateral lower extremity venous Doppler. Patient has slight chest pain troponins are negative echocardiac exam is pending. Patient was transitioned to request today which is covered by insurance. Patient is not hypoxic. Patient is clinically stable REVIEW OF SYSTEMS: CONSTITUTIONAL: No fever, no malaise, no fatigue. HEENT: No recent visual problems or hearing problems. Denied any sore throat. CARDIOVASCULAR: No orthopnea, PND, no palpitations, no syncope. PULMONARY: No shortness of breath, no cough, no hemoptysis. GASTROINTESTINAL: No diarrhea, no nausea, no vomiting, no abdominal pain. NEUROLOGICAL: No headaches, no weakness, no numbness. HEMATOLOGICAL: Denies any bleeding or petechiae. GENITOURINARY: Denies any burning micturition, frequency, or urgency. MUSCULOSKELETAL/RHEUMATOLOGICAL: Denies any joint pain, swelling, or any muscle pain. ENDOCRINE: Denies any polyuria or polydipsia. The rest of the 14-point review of systems is negative. PHYSICAL EXAMINATION: GENERAL: The patient is alert and oriented x3, not in any acute distress. Well developed, well nourished. HEENT: Pupils are round and equally reacting to light. EOMI. No scleral icterus. No conjunctival pallor. Normocephalic, atraumatic. No pharyngeal erythema. No thyromegaly. CARDIOVASCULAR: S1 and S2 present. No murmurs, rubs, or gallops. PULMONARY: Chest is clear to auscultation, no wheezing or crackles. ABDOMEN: Soft, nontender, nondistended, normoactive bowel sounds. No palpable organomegaly. MUSCULOSKELETAL: No joint swelling or deformity. EXTREMITIES: No cyanosis, clubbing, or pedal edema. NEUROLOGICAL: Gross neurological examination did not reveal any focal deficits. SKIN: No rashes. Assessment and plan -Subsegmental bilateral pulmonary embolism: Secondary to oral contraceptive pills and smoking will need 3-6 months of anticoagulation after discontinuation of smoking and OC pills. If echocardiogram doesn't show any right ventricular strain patient will be discharged on oral anticoagulation. -History of hepatitis C: Follow-up with gastroenterology as an outpatient -Nicotine use: Counseling was provided patient will quit smoking. -Bipolar/depression If the echocardiogram doesn't show any right ventricular strain patient will be discharged today Patient Condition at Discharge: Stable Plan - Discharge Summary Discharge Rx Participant: No New Discharge Prescriptions: New Apixaban [Eliquis Starter Pack (for VTE)] 5 - 10 mg PO DIRECTED 30 Days #1 each Continue Vortioxetine Hydrobromide [Trintellix] 20 mg PO HS lamoTRIgine [LaMICtal] 100 mg PO DIRECTED Discontinued norgestimate-ethinyl estradioL [Sprintec 28 Day Tablet] 1 tab PO HS Discharge Medication List Vortioxetine Hydrobromide [Trintellix] 20 mg PO HS 08/13/22 [History] lamoTRIgine [LaMICtal] 100 mg PO DIRECTED 02/09/23 [History] Apixaban [Eliquis Starter Pack (for VTE)] 5 - 10 mg PO DIRECTED 30 Days #1 each 02/10/23 [Rx] Follow up Appointment(s)/Referral(s): Sajan Cosme MD [Primary Care Provider] - 3 Days
[2023-02-10] MEDS: ACETAMINOPHEN TAB 325 MG TAB PO PRN ×2 (12:47→18:09)
[2023-02-10] MEDS: lamoTRIgine 100 MG TAB PO SCH (14:14)
[2023-02-10] MEDS ORDERED: VORTIOXETINE HYDROBROMIDE 20 MG TABLET PO SCH (21:00)
[2023-02-11] MEDS: MORPHINE SULFATE 4 MG/ML SYRINGE IVP PRN ×2 (02:22→11:17)
[2023-02-11] MEDS: ACETAMINOPHEN TAB 325 MG TAB PO PRN (03:51)
--- NOTE | 2023-02-11 07:40 | CA ---
Transthoracic Echo Report Name: Yoli Barrera Age: 32 Gender: F : 1990 Exam Date: 02/10/2023 08:58 Exam Location: [facility] Ht (in): 65 Wt (lb): 208 Ordering Physician: ePrcy Dalal MD Attending/Referring Phys: Traffic Counter Osmar Calvin Procedure CPT: Indications: PE, r/o heart strain Cardiac Hx: Technical Quality: Fair Contrast 1: Total Dose (mL): Contrast 2: Total Dose (mL): MEASUREMENTS (Male / Female) Normal Values 2D ECHO LV Diastolic Diameter PLAX 4.9 cm 4.2 - 5.9 / 3.9 - 5.3 cm LV Systolic Diameter PLAX 3.2 cm IVS Diastolic Thickness 1.0 cm 0.6 - 1.0 / 0.6 - 0.9 cm LVPW Diastolic Thickness 1.0 cm 0.6 - 1.0 / 0.6 - 0.9 cm LV Relative Wall Thickness 0.4 RV Internal Dim ED PLAX 3.2 cm LVOT Diameter 2.0 cm Aortic Root Diameter 3.0 cm LA Systolic Diameter LX 2.6 cm 3.0 - 4.0 / 2.7 - 3.8 cm LV Diastolic Volume MOD BP 68.6 cm??? 67 - 155 / 56 - 104 cm??? LV Systolic Volume MOD BP 29.1 cm??? - 58 / 19 - 49 cm??? LV Ejection Fraction MOD BP 57.5 % >= 55 % LV Cardiac Index MOD BP 1304.9 cm???/min???m??? LV Diastolic Volume MOD 4C 62.7 cm??? LV Systolic Volume MOD 4C 26.6 cm??? LV Ejection Fraction MOD 4C 57.7 % LV Cardiac Index MOD 4C 1194.8 cm???/min???m??? LV Diastolic Length 4C 6.7 cm LV Systolic Length 4C 6.1 cm LV Diastolic Volume MOD 2C 69.6 cm??? LV Systolic Volume MOD 2C 27.6 cm??? LV Ejection Fraction MOD 2C 60.3 % LV Cardiac Index MOD 2C 1387.6 cm???/min???m??? LV Diastolic Length 2C 6.2 cm LV Systolic Length 2C 5.2 cm LA Volume 45.2 cm??? 18 - 58 / 22 - 52 cm??? Ascending Aorta Diameter 2.7 cm DOPPLER AV Peak Velocity 150.0 cm/s AV Peak Gradient 9.0 mmHg LVOT Peak Velocity 102.3 cm/s LVOT Peak Gradient 4.2 mmHg AV Area Cont Eq pk 2.1 cm??? MV Peak Velocity 112.9 cm/s MV Peak Gradient 5.1 mmHg MV Mean Velocity 51.7 cm/s MV Mean Gradient 1.4 mmHg MV Velocity Time Integral 38.1 cm MR Peak Velocity 256.0 cm/s MR Peak Gradient 26.2 mmHg Mitral E Point Velocity 103.1 cm/s Mitral A Point Velocity 66.0 cm/s Mitral E to A Ratio 1.6 MV Deceleration Time 334.1 ms MV E' Velocity 13.0 cm/s Mitral E to MV E' Ratio 7.9 TR Peak Velocity 224.1 cm/s TR Peak Gradient 20.1 mmHg Right Ventricular Systolic Press 25.1 mmHg FINDINGS Left Ventricle Normal LV size and wall thickness. Left ventricular ejection fraction is estimated at 55-60 %. Right Ventricle Normal right ventricular size. RVSP= 26mhg. Right Atrium Normal right atrial size. Left Atrium Normal left atrial size. Mitral Valve Structurally normal mitral valve. Trace MR. Aortic Valve Trileaflet aortic valve. No aortic valve stenosis or regurgitation. Tricuspid Valve Structurally normal tricuspid valve. Trace TR. Pulmonic Valve Pulmonic valve not well visualized. Trace PI. Pericardium Normal pericardium. Aorta Normal size aortic root and proximal ascending aorta. CONCLUSIONS 1. Normal left ventricle size and systolic function 2. Normal right ventricle systolic pressure and normal size 3. Trace mitral and tricuspid regurgitation Previewed by: Dr. Haley Herzog MD (Electronically Signed) Final Date: 11 February 2023 07:39
[2023-02-11] MEDS: lamoTRIgine 100 MG TAB PO SCH (09:56)
[2023-02-11 09:59] VITALS: RESP 17
--- NOTE | 2023-02-11 10:01 | P.PN ---
Subjective Progress Note Date: 02/11/23 Principal diagnosis: Shortness of breath/chest pain. I am seeing this patient in new consultation today 02/10/2023 for a small right lower lung pulmonary emboli and possible pulmonary infarct. Patient is a 32-year-old white female with past medical history significant for bipolar and hepatitis C. Patient reports right lateral/posterior flank pain that started yesterday at 3:30 in the morning. She did originally go to urgent care, and was directed to the emergency room to rule out PE. CTA on arrival showed a multiple small subsegmental right lower lung pulmonary emboli with a wedge-shaped opacity suggesting pulmonary infarct. No CT evidence of right heart strain. He is currently sitting up in bed, on room air, in no acute distress. Chest pain is likely pleuritic, and increases with deep breathing or movement. It is non- radiating. No significant shortness of breath. No hemoptysis. Also reports some left calf pain about on week ago. No unilateral leg swelling. She was taking an estrogen containing oral contraceptive. She also smokes 1 pack per day. No personal history of thrombosis, recent surgery, or prolonged travel. She does have a family history significant for blood clots. Her sister and father both have history of DVTs. Patient has been started on high intensity heparin per protocol. CBC and CMP on arrival were fairly unremarkable. UA was not significant for urinary tract infection. Pain is fairly well-controlled with current regimen. No significant hemodynamic instability. Patient will be monitored on the cardiac stepdown unit. Progress note dated 02/11/2023. 32-year-old female who presented with chest pain and shortness of breath. She was found to have a right lower lobe pulmonary embolism, and possible pulmonary infarction. Currently, she is seen today in room 376. She is on room air. She's not receiving any IV fluids. He has been converted over to a factor X a inhibitor, i.e. Eliquis. From my perspective, the patient could be considered for possible discharge. She will follow-up in the office with one of us. She currently is feeling well, without complaints. Her pain is much improved. No new labs today. Labs from February 10 have been reviewed. Objective - Vital Signs Vital signs: Vital Signs Temp 97.5 F L 02/11/23 03:48 Pulse 54 L 02/11/23 03:48 Resp 14 02/11/23 03:48 BP 100/64 02/11/23 03:48 Pulse Ox 98 02/11/23 03:48 FiO2 Intake & Output 02/10/23 02/11/23 02/11/23 18:59 06:59 18:59 Intake Total 960 Balance 960 Intake: Oral 960 Other: Voiding Method Toilet # Voids 1 2 - Exam No acute distress, oriented 3. Currently on room air. Saturations 98%. No shortness of breath or conversational dyspnea. HEENT examination is grossly unremarkable. Mucous membranes are moist. No oral lesions. Neck supple. Full range of motion. No adenopathy thyromegaly or neck vein distention. Cardiovascular examination reveals regular rhythm rate. S1-S2 normal. No S3 or S4. No discernible murmur noted. Heart rate 58 bpm. Lungs reveal clear breath sounds. Breath sounds are equal bilaterally. No adventitious lung sounds including wheezes rhonchi or crackles. Abdomen soft bowel sounds are heard. No masses or tenderness. Extremities are intact. No cyanosis clubbing or edema. Skin is without rash or lesion. Neurologic examination is brief but nonfocal. - Labs CBC & Chem 7: 02/10/23 02:37 02/09/23 17:46 Assessment and Plan Assessment: Multiple small subsegmental pulmonary emboli within the right lower lung, with a wedge shaped opacity suggesting pulmonary infarct. No CT evidence of right h eart strain. Bipolar. Chronic nicotine dependence. Plan: Plan dated 02/11/2023. The patient has been converted from IV heparin to a factor X a inhibitor. The pulmonary perspective, the patient could be considered for possible discharge. She's not receiving any IV fluids, and she's not receiving any supplemental oxygen. In the office. She'll need a follow-up CT angiogram in about 8-10 weeks. Additional recommendations and suggestions are forthcoming. Labs, x- rays, and medications are all reviewed. Time with Patient: Less than 30
[2023-02-11] MEDS: NICOTINE 21MG/24HR PATCH TRANSDERM SCH (11:06)
[2023-02-11] MEDS: APIXABAN 5 MG TAB PO SCH (11:06)
[2023-02-11 11:28] VITALS: BP 116/79; PULSE 70; TEMP 98.4
--- NOTE | 2023-02-12 15:24 | P.DS ---
Providers Date of admission: 02/09/23 19:44 Expected date of discharge: 02/11/23 Attending physician: Trudi Humphrey MD Consults: 02/09/23 19:44 Consult Physician Routine Consulting Provider: Jayla Gutierres Consult Reason/Comments: PE with pulmonary infarcts Do you want consulting provider notified?: Already Contacted Primary care physician: Sajan Cosme MD Hospital Course: Final diagnosis -Subsegmental bilateral pulmonary embolism: Secondary to oral contraceptive pills and smoking will need 3-6 months of anticoagulation after discontinuation of smoking and OC pills. No evidence of right heart strain noted on echo -History of hepatitis C: Follow-up with gastroenterology as an outpatient -Continued ongoing Nicotine use: Counseling was provided , patient will quit smo morgan. -Bipolar/depression Discharge disposition Patient is being discharged in a stable condition with guarded prognosis to home. Patient will follow-up with Dr. Cosme in the outpatient setting upon discharge. Patient is to continue with eliquis 10 mg twice a day for 1 week and then 5 mg twice daily thereafter and close outpatient follow-up with hematology as well as pulmonary as scheduled. Total time taken is greater than 35 minutes. Hospital course Patient is a 32-year-old female with the history of smoking and on oral contraceptive pills came in with some symptoms of pleuritic chest pain found to have a small subsegmental PE, without any residual blood clots in the bilateral lower extremity venous Doppler. Patient has slight chest pain troponins are negative echocardiac exam is pending. Patient has been transitioned oral Eliquis today which is covered by insurance. Patient is not hypoxic. Patient is clinically stable. Patient denies chest pain, shortness of breath, or palpitations. Patient is afebrile with no reports of nausea or vomiting noted. Patient has been cleared by consultations for discharge. Please refer to consultation notes for further HPI. PHYSICAL EXAMINATION: GENERAL: The patient is alert and oriented x3, not in any acute distress. Well developed, well nourished. HEENT: Pupils are round and equally reacting to light. EOMI. No scleral icterus. No conjunctival pallor. Normocephalic, atraumatic. No pharyngeal erythema. No thyromegaly. CARDIOVASCULAR: S1 and S2 present. No murmurs, rubs, or gallops. PULMONARY: Chest is clear to auscultation, no wheezing or crackles. ABDOMEN: Soft, nontender, nondistended, normoactive bowel sounds. No palpable organomegaly. MUSCULOSKELETAL: No joint swelling or deformity. EXTREMITIES: No cyanosis, clubbing, or pedal edema. NEUROLOGICAL: Gross neurological examination did not reveal any focal deficits. SKIN: No rashes. Please refer to medication reconciliation sheet for a list of medications. The impression and plan of care has been dictated by Kristin Dewey, Nurse Practitioner as directed. Dr. Ken MD I have performed a history and examination and MDM of this patient, discussed the same with the dictator, and agree with the dictator's assessment and plan as written ,documented as a scribe. Based on total visit time, I have performed more than 50% of the visit. Patient Condition at Discharge: Stable Plan - Discharge Summary Discharge Rx Participant: No New Discharge Prescriptions: New traMADol HCL 50 mg PO Q6H 3 Days #21 tab Ondansetron Odt [Zofran Odt] 4 mg PO Q8HR PRN #16 tab PRN Reason: Nausea Apixaban [Eliquis Starter Pack (for VTE)] 5 - 10 mg PO DIRECTED 30 Days #1 each Nicotine 21Mg/24Hr Patch [Habitrol] 1 patch TRANSDERM DAILY patch Acetaminophen Tab [Tylenol] 650 mg PO Q6HR PRN tab PRN Reason: Fever And/ Or Pain Cephalexin [Keflex] 500 mg PO Q6HR 5 Days #20 cap Continue Vortioxetine Hydrobromide [Trintellix] 20 mg PO HS lamoTRIgine [LaMICtal] 100 mg PO DIRECTED Discontinued norgestimate-ethinyl estradioL [Sprintec 28 Day Tablet] 1 tab PO HS Discharge Medication List Vortioxetine Hydrobromide [Trintellix] 20 mg PO HS 08/13/22 [History] lamoTRIgine [LaMICtal] 100 mg PO DIRECTED 02/09/23 [History] Acetaminophen Tab [Tylenol] 650 mg PO Q6HR PRN tab 02/11/23 [Rx] Apixaban [Eliquis Starter Pack (for VTE)] 5 - 10 mg PO DIRECTED 30 Days #1 each 02/11/23 [Rx] Cephalexin [Keflex] 500 mg PO Q6HR 5 Days #20 cap 02/11/23 [Rx] Nicotine 21Mg/24Hr Patch [Habitrol] 1 patch TRANSDERM DAILY patch 02/11/23 [Rx] Ondansetron Odt [Zofran Odt] 4 mg PO Q8HR PRN #16 tab 02/11/23 [Rx] traMADol HCL 50 mg PO Q6H 3 Days #21 tab 02/11/23 [Rx] Follow up Appointment(s)/Referral(s): Sajan Cosme MD [Primary Care Provider] - 3 Days (FridayJanuary 9:30 WITH [facility] IN THE [facility]) Gallito Quintana DO [Doctor of Osteopathic Medicine] - 1 Week (February 24, 2:00) Mike Thomas MD [STAFF PHYSICIAN] - As Needed Patient Instructions/Handouts: Pulmonary Embolism (DC) Activity/Diet/Wound Care/Special Instructions: Activity Limited until follow-up Continue taking medications as prescribed Discharge/Stand Alone Forms: Work/School Release / Restrict Discharge Disposition: HOME SELF-CARE
== END 2023-02-11 12:35 | disposition home or self-care (01) ==
LOC: EC 17:03 → 3SCARD 19:44 → INTOOBSV 19:44 → 3SCARD 22:14
PROVIDERS: ADMIT Internal Medicine; ATTEND Internal Medicine
DX: I26.94 Multiple subsegmental thrombotic pulmonary emboli without acute cor pulmonale (principal); F17.210 Nicotine dependence, cigarettes, uncomplicated; T38.4X5A Adverse effect of oral contraceptives, initial encounter; B19.20 Unspecified viral hepatitis C without hepatic coma; M79.662 Pain in left lower leg; E66.9 Obesity, unspecified; Z68.34 Body mass index [BMI] 34.0-34.9, adult; Z71.6 Tobacco abuse counseling; F31.9 Bipolar disorder, unspecified; Z79.3 Long term (current) use of hormonal contraceptives; Z79.899 Other long term (current) drug therapy; Z88.5 Allergy status to narcotic agent; Z88.8 Allergy status to other drugs, medicaments and biological substances; Z86.14 Personal history of Methicillin resistant Staphylococcus aureus infection; Z90.49 Acquired absence of other specified parts of digestive tract; Z83.49 Family history of other endocrine, nutritional and metabolic diseases; Z83.3 Family history of diabetes mellitus; Z82.49 Family history of ischemic heart disease and other diseases of the circulatory system; Z80.9 Family history of malignant neoplasm, unspecified
CPT/HCPCS: 96376 ×3; 96366 ×2; 96375 ×2; 96361; 96365; 99285; 36415; 93005; 93306; 85379; 80053; 83690; 83735; 84484; 85025; 85027; 85610; 85730 ×3; 81001; 71045; 71046; 93970; 71275; G0378 ×2; S4990 ×2; J2270 ×2; J3010; J1644 ×2; J1885; Q9967

== ENCOUNTER → 2023-04-07 | Outpatient (CLI) | payer OTHER ==
[2023-04-07 10:24] LABS: African American GFR (CKD) >90 (>60 ml/min/1.73 sqM); Blood Urea Nitrogen 7 mg/dL (7-17); Non-African American GFR(CKD) >90 (>60 ml/min/1.73 sqM)
--- NOTE | 2023-04-07 11:38 | CT ---
EXAMINATION TYPE: CT angio chest DATE OF EXAM: 04/07/2023 COMPARISON: 02/09/2023 HISTORY: h/o PE, f/u CT DLP: 445.6 mGycm CONTRAST: CT chest with contrast and 3D reconstruction with MIP imaging is performed with IV Contrast, patient injected with 100 mL of Isovue 370. Contrast-enhanced CT of the chest was performed through the course of the pulmonary arteries with yojana g and mediastinal window settings submitted. 3D reconstruction with MIP imaging was also performed. PULMONARY ARTERIES: The pulmonary arteries and their major tributaries are patent. I do not see maritza dence for sizable filling defect to suggest pulmonary embolic process. Previously noted right lower l obe pulmonary embolism has resolved in the interval. LUNGS: The lungs are clear and free of infiltrate. No evidence for atelectasis. No pulmonary nodule or mass is detected. No pleural effusion. MEDIASTINUM: Thoracic aorta is of normal caliber,however, evaluation is limited given timing of the contrast bolus. The heart is not enlarged. No evidence for mediastinal mass. No mediastinal lymph nodes greater than 1cm. HILAR STRUCTURES: No evidence for mass. No hilar lymph nodes greater than 1 cm. UPPER ABDOMEN: No significant abnormality is seen. IMPRESSION: 1. No evidence for Pulmonary embolism at this time. 2.Previously noted right lower lobe pulmonary embolism has resolved in the interval.
== END | disposition home or self-care (01) ==
LOC: RADCTMAIN 09:52
PROVIDERS: ATTEND Internal Medicine Critical Care Medicine
DX: I26.99 Other pulmonary embolism without acute cor pulmonale (principal)
CPT/HCPCS: 82565; 84520; 71275; 36415; Q9967

== ENCOUNTER → 2024-02-17 | Outpatient (CLI) | payer OTHER ==
--- NOTE | 2024-02-18 08:45 | MM ---
Reason for Exam: Screening (asymptomatic). Baseline mammogram. Patient History: Menarche at age 11. First Full-Term at age 23. Patient has history of breast feeding. Paternal aunt had ovarian cancer under age 50. Paternal grandmother had ovarian cancer under age 50. Mother had breast cancer, age 42. Last menstrual period: 02/03/2024 Prior Study Comparison: Patient's first Mammogram. Tissue Density: There are scattered areas of fibroglandular density. Findings: Analyzed By CAD. There is no suspicious group of microcalcifications or new suspicious mass in either breast. Overall Assessment: Negative, BI-RAD 1 Management: Screening Mammogram of both breasts in 1 year. . Patient should continue monthly self-breast exams. A clinical breast exam by your physician is recommended on an annual basis. This exam should not preclude additional follow-up of suspicious palpable abnormalities. Note on Claire scores and lifetime risk: 1. A Claire score greater than 3% is considered moderate risk. If this is the case, consider specialist referral to assess eligibility for a risk reducing agent. 2. If overall lifetime risk for the development of breast cancer is 20% or higher, the patient may qualify for future screening with alternating mammogram and breast MRI. Electronically signed and approved by: Tray Nieves M.D. Radiologis
== END | disposition home or self-care (01) ==
LOC: RADMAMWWP 15:39
PROVIDERS: ATTEND Family Medicine
DX: Z12.31 Encounter for screening mammogram for malignant neoplasm of breast (principal); Z80.3 Family history of malignant neoplasm of breast
CPT/HCPCS: 77063; 77067

== ENCOUNTER 2024-04-06 01:52 | Emergency (ER) | payer OTHER ==
[2024-04-06 01:56] VITALS: TEMP 97.5
[2024-04-06] MEDS: ONDANSETRON 4 MG/2 ML VIAL IVP STA (02:24)
[2024-04-06 02:25] LABS: Basophils % (A) 0 %; Eosinophils # (A) 0.1 k/uL (0-0.7); Eosinophils % (A) 1 %; HCT 43.3 % (34.0-46.0); HGB 15.4 gm/dL (11.4-16.0); Lymphocytes # (A) 1.4 k/uL (1.0-4.8); Lymphocytes % (A) 16 %; MCH 31.5 pg (25.0-35.0); MCHC 35.4 g/dL (31.0-37.0); Monocytes # (A) 0.5 k/uL (0-1.0); Monocytes % (A) 6 %; Neutrophils # (A) 6.6 k/uL (1.3-7.7); Neutrophils % (A) 75 %; Platelet Count 310 k/uL (150-450); RBC 4.87 m/uL (3.80-5.40); RDW 12.5 % (11.5-15.5); WBC 8.7 k/uL (3.8-10.6)
[2024-04-06] MEDS: SODIUM CHLORIDE 0.9% 1,000 ML IV STA ×2 (02:25→04:47)
[2024-04-06] MEDS: KETOROLAC 15 MG/ML 1 ML VIAL IVP STA (02:25)
--- NOTE | 2024-04-06 02:30 | ED ---
Nausea/Vomiting/Diarrhea HPI <Dany Goel - Last Filed: 04/06/24 07:02> - General Source: patient, family, RN notes reviewed Mode of arrival: wheelchair Limitations: no limitations <Keyonna Quiros - Last Filed: 04/06/24 16:09> - General Chief complaint: Nausea/Vomiting/Diarrhea Stated complaint: Vomiting, pain Time Seen by Provider: 04/06/24 02:29 - History of Present Illness Initial comments: 33 year old female presenting to the ER with a chief complaint of nausea and vomiting. Patient's mother is providing majority of HPI. She states for the past 24 hours patient has been experiencing intense nausea and vomiting. She also is reporting generalized abdominal pain. Patient has not tried anything [id number] for her current symptoms. Patient has tried to consume food without relief. Has been vomiting up bile. Patient does states she has a history of a "kink" in her intestines. Patient reports normal bowel movement today and flatulence. No fevers or chills. No chest pain or shortness of breath. (Keyonna Quiros) - Related Data Home Medications Medication Instructions Recorded Confirmed Vortioxetine Hydrobromide 20 mg PO HS 08/13/22 02/09/23 [Trintellix] lamoTRIgine [LaMICtal] 100 mg PO DIRECTED 02/09/23 02/09/23 Previous Rx's Medication Instructions Recorded Acetaminophen Tab [Tylenol] 650 mg PO Q6HR PRN tab 02/11/23 Apixaban [Eliquis Starter Pack 5 - 10 mg PO DIRECTED 30 Days 02/11/23 (for VTE)] #1 each Cephalexin [Keflex] 500 mg PO Q6HR 5 Days #20 cap 02/11/23 Nicotine 21Mg/24Hr Patch [Habitrol] 1 patch TRANSDERM DAILY patch 02/11/23 Ondansetron Odt [Zofran Odt] 4 mg PO Q8HR PRN #16 tab 02/11/23 traMADol HCL 50 mg PO Q6H 3 Days #21 tab 02/11/23 Allergies Allergy/AdvReac Type Severity Reaction Status Date / Time codeine AdvReac Nausea & Verified 04/06/24 01:53 Vomiting medroxyprogesterone AdvReac Nausea & Verified 04/06/24 01:53 [From Depo-Provera] Vomiting Review of Systems ROS Other: All systems not noted in ROS Statement are negative. <Dany Goel - Last Filed: 04/06/24 07:02> ROS Other: All systems not noted in ROS Statement are negative. <Keyonna Quiros - Last Filed: 04/06/24 16:09> ROS Statement: Those systems with pertinent positive or pertinent negative responses have been documented in the HPI. Past Medical History Past Medical History: No Reported History Additional Past Medical History / Comment(s): Hep C History of Any Multi-Drug Resistant Organisms: MRSA Date of last positivie culture/infection: 12/19/15 MDRO Source:: right arm Past Surgical History: Cholecystectomy Past Anesthesia/Blood Transfusion Reactions: No Reported Reaction Past Psychological History: Bipolar, Depression Smoking Status: Current every day smoker, Vaper Past Alcohol Use History: Rare Past Drug Use History: Marijuana - Past Family History Mother Family Medical History: Cancer, Diabetes Mellitus, Hypertension Father Family Medical History: Hyperlipidemia, Hypertension Additional Family Medical History / Comment(s): states her dad has had a blood clot before but unsure where <Keyonna Quiros - Last Filed: 04/06/24 16:09> General Exam Limitations: no limitations General appearance: alert, in no apparent distress, anxious Respiratory exam: Present: normal lung sounds bilaterally. Absent: respiratory distress, wheezes, rales, rhonchi, stridor Cardiovascular Exam: Present: regular rate, normal rhythm, normal heart sounds. Absent: systolic murmur, diastolic murmur, rubs, gallop, clicks GI/Abdominal exam: Present: soft, tenderness (generalized), normal bowel sounds Neurological exam: Present: alert, oriented X3, CN II-XII intact Skin exam: Present: warm, intact, normal color, diaphoretic (mildly) <Keyonna Quiros - Last Filed: 04/06/24 16:09> Course <Keyonna Quiros - Last Filed: 04/06/24 16:09> Vital Signs 04/06/24 04/06/24 01:53 06:43 Temperature 97.5 F L Pulse Rate 78 61 Respiratory 26 H 16 Rate Blood Pressure 126/75 112/65 O2 Sat by Pulse 100 99 Oximetry - Reevaluation(s) Reevaluation #1: 04/06/24 03:04 Patient reevaluated. Patient still actively vomiting in ER and complaining of abdominal pain. Reglan and morphine ordered. (Keyonna Quiros) Medical Decision Making - Lab Data Result diagrams: 04/06/24 02:20 04/06/24 02:22 <Dany Goel - Last Filed: 04/06/24 07:02> - Lab Data Result diagrams: 04/06/24 02:20 04/06/24 02:22 <Keyonna Quiros - Last Filed: 04/06/24 16:09> - Medical Decision Making Was pt. sent in by a medical professional or institution (, PA, CONTINUOUS MINING MACHINE OPERATOR, urgent care, hospital, or residential...) When possible be specific @ -No Did you speak to anyone other than the patient for history (EMS, parent, family, police, friend...)? What history was obtained from this source @ -No Did you review nursing and triage notes (agree or disagree)? Why? @ -I reviewed and agree with nursing and triage notes Were old charts reviewed (outside hosp., previous admission, EMS record, old EKG, old radiological studies, urgent care reports/EKG's, residential records)? Report findings @ -No old charts were reviewed Differential Diagnosis (chest pain, altered mental status, abdominal pain women, abdominal pain men, vaginal bleeding, weakness, fever, dyspnea, syncope, headache, dizziness, GI bleed, back pain, seizure, CVA, palpatations, mental health, musculoskeletal)? @ -Differential Abdominal Pain Women:Appendicitis, Cholecystitis, diverticulosis, ischemic bowel, pancreatitis, hepatitis, UTI, gastroenteritis, AAA, incarcerated hernia, bowel obstruction, constipation, inflammatory bowel, hepatitis, peptic ulcer disease, splenic infarction, perforated viscus, vulvitis, ovarian torsion, PID, kidney stone, placenta abruption, this is not meant to be an all-inclusive list EKG interpreted by me (3pts min.). @ -None done X-rays interpreted by me (1pt min.). @ -None done CT interpreted by me (1pt min.). @ -Pending U/S interpreted by me (1pt. min.). @ -None done What testing was considered but not performed or refused? (CT, X-rays, U/S, labs)? Why? @ -None What meds were considered but not given or refused? Why? @ -None Did you discuss the management of the patient with other professionals (professionals i.e. , PETE, CONTINUOUS MINING MACHINE OPERATOR, lab, RT, psych nurse, delinquency prevention social worker, category development analyst, teacher, aviation ordnance officer, case management coordinator)? Give summary @ -No Was smoking cessation discussed for >3mins.? @ -No Was critical care preformed (if so, how long)? @ -No Were there social determinants of health that impacted care today? How? ( Homelessness, low income, unemployed, alcoholism, drug addiction, transportation, low edu. Level, literacy, decrease access to med. care, usp, rehab)? @ -No Was there de-escalation of care discussed even if they declined (Discuss DNR or withdrawal of care, Hospice)? DNR status @ -No What co-morbidities impacted this encounter? (DM, HTN, Smoking, COPD, CAD, Cancer, CVA, ARF, Chemo, Hep., AIDS, mental health diagnosis, sleep apnea, morbid obesity)? @ -None Was patient admitted / discharged? Hospital course, mention meds given and route, prescriptions, significant lab abnormalities, going to OR and other pertinent info. @ -Presented to ER with chief plaint of nausea vomiting and abdominal pain. History and physical exam completed. Vitals within normal limits. No signs of acute distress but is very anxious on exam. Patient is also actively vomiting. Generalized abdominal pain with normal bowel sounds. No rebound or guarding. CBC unremarkable. CMP showing a sodium 142, potassium 1.4, chloride 109, carbon dioxide 18. Lactic acid 2.2. Amylase 199, lipase 151. Patient received IV fluids, Zofran, Reglan, Toradol and morphine for symptom control in the ER. CT and hCG pending. Patient signed out to ED attending, Dr. Goel at shift completion. (Keyonna Quiros) - Lab Data Lab Results 04/06/24 04/06/24 04/06/24 Range/Units 02:20 02:22 02:22 WBC 8.7 (3.8-10.6) k/uL RBC 4.87 (3.80-5.40) m/uL Hgb 15.4 (11.4-16.0) gm/dL Hct 43.3 (34.0-46.0) % MCV 89.0 (80.0-100.0) fL MCH 31.5 (25.0-35.0) pg MCHC 35.4 (31.0-37.0) g/dL RDW 12.5 (11.5-15.5) % Plt Count 310 (150-450) k/uL MPV 8.0 Neutrophils % 75 % Lymphocytes % 16 % Monocytes % 6 % Eosinophils % 1 % Basophils % 0 % Neutrophils # 6.6 (1.3-7.7) k/uL Lymphocytes # 1.4 (1.0-4.8) k/uL Monocytes # 0.5 (0-1.0) k/uL Eosinophils # 0.1 (0-0.7) k/uL Basophils # 0.0 (0-0.2) k/uL Sodium 142 (137-145) mmol/L Potassium 4.1 (3.5-5.1) mmol/L Chloride 109 H (98-107) mmol/L Carbon Dioxide 18 L (22-30) mmol/L Anion Gap 15 mmol/L BUN 6 L (7-17) mg/dL Creatinine 0.58 (0.52-1.04) mg/dL Est GFR (CKD-EPI)AfAm >90 (>60 ml/min/1.73 sqM) Est GFR (CKD-EPI)NonAf >90 (>60 ml/min/1.73 sqM) Glucose 168 H (74-99) mg/dL Lactic Ac Sepsis Rflx Plasma Lactic Acid Rodolfo 2.2 H* (0.7-2.0) mmol/L Calcium 10.4 H (8.4-10.2) mg/dL Total Bilirubin 1.0 (0.2-1.3) mg/dL AST 26 (14-36) U/L ALT 25 (4-34) U/L Alkaline Phosphatase 88 (38-126) U/L Total Protein 8.2 (6.3-8.2) g/dL Albumin 4.9 (3.5-5.0) g/dL Amylase 199 H (30-110) U/L Lipase 151 (23-300) U/L HCG, Quant mIU/mL 04/06/24 04/06/24 Range/Units 02:22 02:54 WBC (3.8-10.6) k/uL RBC (3.80-5.40) m/uL Hgb (11.4-16.0) gm/dL Hct (34.0-46.0) % MCV (80.0-100.0) fL MCH (25.0-35.0) pg MCHC (31.0-37.0) g/dL RDW (11.5-15.5) % Plt Count (150-450) k/uL MPV Neutrophils % % Lymphocytes % % Monocytes % % Eosinophils % % Basophils % % Neutrophils # (1.3-7.7) k/uL Lymphocytes # (1.0-4.8) k/uL Monocytes # (0-1.0) k/uL Eosinophils # (0-0.7) k/uL Basophils # (0-0.2) k/uL Sodium (137-145) mmol/L Potassium (3.5-5.1) mmol/L Chloride (98-107) mmol/L Carbon Dioxide (22-30) mmol/L Anion Gap mmol/L BUN (7-17) mg/dL Creatinine (0.52-1.04) mg/dL Est GFR (CKD-EPI)AfAm (>60 ml/min/1.73 sqM) Est GFR (CKD-EPI)NonAf (>60 ml/min/1.73 sqM) Glucose (74-99) mg/dL Lactic Ac Sepsis Rflx Y Plasma Lactic Acid Rodolfo (0.7-2.0) mmol/L Calcium (8.4-10.2) mg/dL Total Bilirubin (0.2-1.3) mg/dL AST (14-36) U/L ALT (4-34) U/L Alkaline Phosphatase (38-126) U/L Total Protein (6.3-8.2) g/dL Albumin (3.5-5.0) g/dL Amylase (30-110) U/L Lipase (23-300) U/L HCG, Quant <2.4 mIU/mL Disposition Is patient prescribed a controlled substance at d/c from ED?: No Time of Disposition: 07:00 <Dany Goel - Last Filed: 04/06/24 07:02> <Stariha,Keyonna - Last Filed: 04/06/24 16:09> Clinical Impression: Gastroenteritis Disposition: HOME SELF-CARE Condition: Good Instructions (If sedation given, give patient instructions): Acute Nausea and Vomiting (ED), Acute Diarrhea (ED) Referrals: Sajan Cosme MD [Primary Care Provider] - 1-2 days
[2024-04-06 02:39] LABS: ALT 25 U/L (4-34); AST 26 U/L (14-36); African American GFR (CKD) >90 (>60 ml/min/1.73 sqM); Albumin 4.9 g/dL (3.5-5.0); Alkaline Phosphatase 88 U/L (38-126); Amylase 199 U/L (30-110); Anion Gap 15 mmol/L; Blood Urea Nitrogen 6 mg/dL (7-17); Calcium 10.4 mg/dL (8.4-10.2); Carbon Dioxide 18 mmol/L (22-30); Chloride 109 mmol/L (98-107); Glucose 168 mg/dL (74-99); Lipase 151 U/L (23-300); Non-African American GFR(CKD) >90 (>60 ml/min/1.73 sqM); Potassium 4.1 mmol/L (3.5-5.1); Sodium 142 mmol/L (137-145); Total Protein 8.2 g/dL (6.3-8.2)
[2024-04-06] MEDS: METOCLOPRAMIDE 5 MG/ML 2 ML VIAL IVP STA (03:04)
[2024-04-06] MEDS: MORPHINE SULFATE 4 MG/ML SYRINGE IVP STA (03:15)
[2024-04-06] MEDS: PROCHLORPERAZINE INJ 10 MG/2 ML VIAL IVP STA (04:48)
[2024-04-06] MEDS: PANTOPRAZOLE 40 MG/10 ML VIAL IVP STA (04:50)
[2024-04-06 06:45] VITALS: BP 112/65; PULSE 61; RESP 16
--- NOTE | 2024-04-06 06:59 | CT ---
EXAMINATION TYPE: CT abdomen pelvis w con DATE OF EXAM: 04/06/2024 COMPARISON: 04/30/2018 INDICATION: PT presents with nausea, vomiting, abdominal pain for the past 24 hours. H/O HEP C, MIKHAIL CYSTECTOMY. Pt refuse to take out bellybutton piercing DLP: 942.7 mGycm, Automated exposure control for dose reduction was used. CONTRAST: 100 mL of Isovue 300. Study performed without Oral Contrast TECHNIQUE: Axial images were obtained from above the diaphragm to the pubic rami in the axial plane a t 5 mm thick sections. Reconstructed images are reviewed on the computer in the coronal plane. FINDINGS: Limited CT sections are obtained the lung bases. The lung bases are clear. CT ABDOMEN: Liver: Normal Spleen: Normal Pancreas: Normal Adrenal glands: The adrenal glands are normal. Gallbladder: Surgically absent Kidneys: No masses are evident. No hydronephrosis is present. No cysts are present. Delayed images were obtained through the kidneys, which remain unremarkable. Aorta: Normal Inferior vena cava: Normal. CT PELVIS: Small amount of fluid is within distal ileum. No dilated loops of bowel are evident. No suspicious so nographic transition. Small amount of fluid is in the cecum. Consider gastroenteritis or mild ileus. This study is a lateral contrast limiting bowel evaluation. Appendix: Normal as visualized. Urinary bladder: Decompressed with limited evaluation. Genitourinary structures: Uterus appears normal. There is a 2.3 cm cyst on the left ovary. Right adne xa appears normal. Osseous structures: No suspicious lytic or sclerotic lesions. IMPRESSION: 1. Mild fluid within the distal ileum and cecum. Consider gastroenteritis. Mild ileus could be consi dered. [facility], , 04/06/2024 6:56 AM
== END 2024-04-06 07:17 | disposition home or self-care (01) ==
LOC: EC 01:52
CPT/HCPCS: 36415; 74177; 80053; 82150; 83605; 83690; 84702; 85025; 96361; 96374; 96375; 99284

== ENCOUNTER → 2024-11-12 | Outpatient (CLI) | payer BC ==
--- NOTE | 2024-11-12 17:44 | CT ---
1 EXAMINATION TYPE: CT angio chest DATE OF EXAM: 11/12/2024 5:29 PM COMPARISON: 04/07/2023 CLINICAL INDICATION: Female, 34 years old with history of R07.89 OTHER CHEST PAIN, Pt is c/o vomiting and some abdominal pain for the last three months. Pt has a hx of PE., TECHNIQUE: CTA with axial imaging with sagittal coronal reformats submitted. 3-D reconstruction is performed. 3D reconstruction and/or MIP imaging was also performed on a separate workstation. IV CONTRAST: with IV Contrast, patient injected with 100 ml mL of Isovue 370. (None if empty) CT DLP: 653.2 mGycm, Automated exposure control for dose reduction was used. FINDINGS: CT Chest: THORACIC AORTA: No evidence for thoracic aortic aneurysm. Mild atheromatous changes seen. There is n o evidence for dissection or periaortic collection. LUNGS: The lungs are clear and free of infiltrate or atelectasis. New 1.5 cm pulmonary nodule right u pper lobe anteriorly seen best on image 31. No pleural effusion or CT evidence of interstitial lung d isease. MEDIASTINUM: Pulmonary arteries are patent without evidence of filling defect to suggest pulmonary embolic process at this time. No evidence for mediastinal hematoma. The heart is not enlarged. No e vidence for mediastinal mass or adenopathy. HILAR STRUCTURES: No evidence for mass. No hilar adenopathy is appreciated. OTHER: No significant abnormality. IMPRESSION: 1. No evidence of PE. 2. New 1.5 cm pulmonary nodule right upper lobe anteriorly seen best on image 31. Recommend PET/CT an d/or short-term 3 month follow-up study. Malignancy not excluded. [facility], , 11/12/2024 5:41 PM
== END | disposition home or self-care (01) ==
LOC: RADCTMAIN 16:43
PROVIDERS: ATTEND Family Medicine
DX: R91.1 Solitary pulmonary nodule (principal)
CPT/HCPCS: 71275; Q9967